=== PATIENT | female | born 1935 | race Caucasian/White ===

== ENCOUNTER 2018-08-28 15:45 | Inpatient (IN) | payer MEDICARE, BC ==
[~2018-08-28] VITALS: Ht 165.1 cm; Wt 56.3 kg
--- NOTE | 2018-08-28 16:00 | NUR ---
ED Nurse Note: patient is wheeled into the ER, coming from her house, Patient reports her PMD is Dr. Lock and he sent pt here. patient reports fall on Sunday08/25/18, and Fracture on the left hip,
[2018-08-28 16:15] VITALS: BP 158/9
[2018-08-28 16:59] LABS: BASOPHILS % (AUTO) 1.3 % (0.0-2.0); HEMATOCRIT 36.3 % (37.0-47.0); HEMOGLOBIN 12.5 G/DL (12.0-16.0); LYMPHOCYTES % (AUTO) 7.4 % (20.0-45.0); MEAN CORPUSCULAR VOLUME 96 FL (80-99); MONOCYTES % (AUTO) 13.6 % (1.0-10.0); NEUTROPHILS % (AUTO) 77.7 % (45.0-75.0); PLATELET COUNT 188 K/UL (150-450); RED BLOOD COUNT 3.79 M/UL (4.20-5.40); RED CELL DISTRIBUTION WIDTH 11.1 % (11.6-14.8); WHITE BLOOD COUNT 8.3 K/UL (4.8-10.8)
[2018-08-28 17:17] LABS: ANION GAP 6 mmol/L (5-15); BLOOD UREA NITROGEN 20 mg/dL (7-18); CARBON DIOXIDE 27 MMOL/L (21-32); CHLORIDE 103 MMOL/L (98-107); CREATININE 0.9 MG/DL (0.55-1.30); SODIUM 136 MMOL/L (136-145)
[2018-08-28 17:22] LABS: ALANINE AMINOTRANSFERASE 28 U/L (12-78); ALBUMIN 3.4 G/DL (3.4-5.0); ALBUMIN/GLOBULIN RATIO 1.1 (1.0-2.7); ALKALINE PHOSPHATASE 88 U/L (46-116); ASPARTATE AMINO TRANSFERASE 30 U/L (15-37); BILIRUBIN,TOTAL 0.6 MG/DL (0.2-1.0)
[2018-08-28] MEDS ORDERED: PROBIOTIC1 EAC2 PO (17:29)
[2018-08-28] MEDS ORDERED: ZANTAC150 MG ORAL (17:29)
[2018-08-28] MEDS ORDERED: CENTRUM SILVER1 EAC5 PO (17:29)
[2018-08-28] MEDS ORDERED: ATORVASTATIN CA10 MG ORAL (17:59)
[2018-08-28] MEDS ORDERED: LOSARTAN POTASS50 MG ORAL (17:59)
[2018-08-28] MEDS ORDERED: METOPROLOL SUCC25 MG ORAL (17:59)
--- NOTE | 2018-08-28 18:19 | NUR ---
ED Nurse Note: Clif Jones Cellphone [phone] Patient's home # ([phone])
--- NOTE | 2018-08-28 19:03 | NUR ---
ED Nurse Note: Called 2E, spoke with Madiha Celis is the RN receiving the patient, she is currently getting report for other paient.
--- NOTE | 2018-08-28 19:15 | NUR ---
ED Nurse Note: report given to Madiha MUNOZ, patient is transferred to without any complication. IV site is intact patent. Called and spoke with Clif that patient is now in and the new nurse is Madiha. Endorsed care to Madiha MUNOZ
--- NOTE | 2018-08-28 19:45 | NUR ---
NURSE NOTES: pt being transfer from ER to [address] [place] [address]. pt came from home s/p fall few days ago. pt c/o severe pain located on left hip. pt stable. will continue to monitor and make rounds hourly.
--- NOTE | 2018-08-28 19:57 | History & Physical ---
History and Physical History & Physicial seen in ER 82 Y old woman lives at home fell few days back and sustained pubic ramus fx can't ambulate poor po has pain poor historian admit tele iv pain meds placement #[phone] Max Randolph MD Aug 28, 2018 19:57
[2018-08-28 20:00] VITALS: BP 157/85
[2018-08-28] MEDS ORDERED: Hydromorphone 0.5mg/0.5ml inj IVP PRN (20:15)
[2018-08-28] MEDS: Heparin 5000 units/ml inj SUBQ SCH (21:28)
--- NOTE | 2018-08-28 23:05 | Emergency Room Report ---
History of Present Illness General Chief Complaint: Lower Extremity Injury Present Illness Allergies: Coded Allergies: LATEX (Verified Allergy, Unknown, 02/11/09) MELOXICAM (Verified Allergy, Unknown, 02/11/09) PREDNISONE (Verified Allergy, Unknown, 02/11/09) Patient History Now: No Nursing Documentation-[facility] Hx Hypertension: Yes Physical Exam Vital Signs Date Time Temp Pulse Resp B/P (MAP) Pulse Ox O2 Delivery O2 Flow Rate FiO2 08/28/18 15:56 99.0 91 20 145/73 97 Room Air Medical Decision Making Diagnostic Impression: Primary Impression: Pubic bone fracture Laboratory Tests Test 08/28/18 16:35 White Blood Count 8.3 K/UL (4.8-10.8) Red Blood Count 3.79 M/UL (4.20-5.40) L Hemoglobin 12.5 G/DL (12.0-16.0) Hematocrit 36.3 % (37.0-47.0) L Mean Corpuscular Volume 96 FL (80-99) Mean Corpuscular Hemoglobin 33.0 PG (27.0-31.0) H Mean Corpuscular Hemoglobin Concent 34.5 G/DL (32.0-36.0) Red Cell Distribution Width 11.1 % (11.6-14.8) L Platelet Count 188 K/UL (150-450) Mean Platelet Volume 6.2 FL (6.5-10.1) L Neutrophils (%) (Auto) 77.7 % (45.0-75.0) H Lymphocytes (%) (Auto) 7.4 % (20.0-45.0) L Monocytes (%) (Auto) 13.6 % (1.0-10.0) H Eosinophils (%) (Auto) 0.0 % (0.0-3.0) Basophils (%) (Auto) 1.3 % (0.0-2.0) Sodium Level 136 MMOL/L (136-145) Potassium Level 4.0 MMOL/L (3.5-5.1) Chloride Level 103 MMOL/L (98-107) Carbon Dioxide Level 27 MMOL/L (21-32) Anion Gap 6 mmol/L (5-15) Blood Urea Nitrogen 20 mg/dL (7-18) H Creatinine 0.9 MG/DL (0.55-1.30) Estimate Glomerular Filtration Rate mL/min (>60) Glucose Level 98 MG/DL (74-106) Calcium Level 9.0 MG/DL (8.5-10.1) Total Bilirubin 0.6 MG/DL (0.2-1.0) Aspartate Amino Transferase (AST) 30 U/L (15-37) Alanine Aminotransferase (ALT) 28 U/L (12-78) Alkaline Phosphatase 88 U/L (46-116) Total Protein 6.4 G/DL (6.4-8.2) Albumin 3.4 G/DL (3.4-5.0) Globulin 3.0 g/dL Albumin/Globulin Ratio 1.1 (1.0-2.7) Last Vital Signs Date Time Temp Pulse Resp B/P (MAP) Pulse Ox O2 Delivery O2 Flow Rate FiO2 08/28/18 21:57 98.6 08/28/18 20:00 Room Air 08/28/18 19:31 96 18 146/83 96 Disposition: ADMITTED INPATIENT Condition: Serious Referrals: Lorenzo Lock MD (PCP) Yissel Beckford DO Aug 28, 2018 23:05
[2018-08-29] VITALS: BP 144/68
--- NOTE | 2018-08-29 02:00 | NUR ---
NURSE NOTES: pt in bed sleeping. no s/s of acute distress noted. will continue to monitor
[2018-08-29 04:00] VITALS: BP 129/95
[2018-08-29 06:23] LABS: BASOPHILS % (AUTO) 0.7 % (0.0-2.0); EOSINOPHILS % (AUTO) 0.2 % (0.0-3.0); HEMATOCRIT 33.1 % (37.0-47.0); HEMOGLOBIN 11.3 G/DL (12.0-16.0); LYMPHOCYTES % (AUTO) 12.4 % (20.0-45.0); MEAN CORPUSCULAR VOLUME 97 FL (80-99); MONOCYTES % (AUTO) 14.7 % (1.0-10.0); NEUTROPHILS % (AUTO) 72.1 % (45.0-75.0); PLATELET COUNT 163 K/UL (150-450); RED CELL DISTRIBUTION WIDTH 10.9 % (11.6-14.8); WHITE BLOOD COUNT 6.1 K/UL (4.8-10.8)
--- NOTE | 2018-08-29 06:43 | NUR ---
CASE MANAGEMENT:REVIEW 82 YR OLD FEMALE FROM HOME CC: S/P FALL ON SUNDAY. XRAY TAKEN AT [facility] SI: PELVIC FRACTURE 99.0 91 20 145/73 97% ON RA IS: 1L NS BOLUS : TO TELEMETRY INTERQUAL CRITERIA MET
--- NOTE | 2018-08-29 07:11 | NUR ---
HAND-OFF: Report given to Tess MUNOZ.pt stable condition. all needs met during my shift
[2018-08-29 07:31] LABS: ALANINE AMINOTRANSFERASE 27 U/L (12-78); ALBUMIN 2.9 G/DL (3.4-5.0); ALBUMIN/GLOBULIN RATIO 1.1 (1.0-2.7); ALKALINE PHOSPHATASE 76 U/L (46-116); ANION GAP 8 mmol/L (5-15); ASPARTATE AMINO TRANSFERASE 27 U/L (15-37); BILIRUBIN,TOTAL 0.6 MG/DL (0.2-1.0); BLOOD UREA NITROGEN 12 mg/dL (7-18); CALCIUM 8.1 MG/DL (8.5-10.1); CARBON DIOXIDE 24 MMOL/L (21-32); CHLORIDE 105 MMOL/L (98-107); CHOLESTEROL 110 MG/DL (< 200); CREATINE KINASE 241 U/L (26-308); CREATININE 0.7 MG/DL (0.55-1.30); FERRITIN 164 NG/ML (8-388); GAMMA GLUTAMYL TRANSPEPTIDASE 18 U/L (5-85); HDL CHOLESTEROL 69 MG/DL (40-60); PHOSPHORUS 2.5 MG/DL (2.5-4.9); POTASSIUM 3.7 MMOL/L (3.5-5.1); SODIUM 137 MMOL/L (136-145); TRIGLYCERIDES 43 MG/DL (30-150)
--- NOTE | 2018-08-29 07:52 | NUR ---
NURSE NOTES: Pt in bed in low position with HOB in semi fowlers, bed alarm on, 2 rails up, call light at bedside, pt Ox3 not to time, pt calm and cooperative, denies pain, breakfast at bedside, lopez catheter placed on 08/28 at 2130 18fr, case management for home safety, possible SNF placement if pt agrees, UA collected Na random, RT AC 20 running D5NS c 20mEq K at 50/hr Q20hrs, all labs WNL, no s/s of distress or sob noted.
[2018-08-29 08:00] VITALS: BP 159/81
[2018-08-29 08:11] LABS: % IRON SATURATION 9 % (15-50); IRON 15 ug/dL (50-175); TOTAL IRON BINDING CAPACITY 165 ug/dL (250-450)
[2018-08-29] MEDS ORDERED: Metoprolol Succinate XL 25mg tab ORAL SCH (09:00)
[2018-08-29] MEDS: Losartan 50mg tab ORAL SCH ×2 (09:14→17:36)
[2018-08-29] MEDS: Docusate 100mg cap ORAL SCH ×2 (09:14→17:36)
[2018-08-29] MEDS: Heparin 5000 units/ml inj SUBQ SCH ×2 (09:19→22:12)
[2018-08-29] MEDS ORDERED: Vitamin D 50,000 units cap ORAL SCH (11:00)
[2018-08-29 12:00] VITALS: BP 149/72
[2018-08-29] MEDS ORDERED: Iron Sucrose 200 MG in NS 110 ML IV SCH (13:00)
--- NOTE | 2018-08-29 13:10 | NUR ---
REHAB MED PT NOTE CONSULT RECEIVED, ASHLEY COMPLTED, PATIENT WILL BENEFIT FROM SKILLED PT DURING STAY FOR RETURN TO OF. RECOMMEND SNF AT [place]. FAMILY IS REQUESTING [facility], LET THEM KNOW THE MESSAGE WILL BE PASSED, CM NOTIFIED. PATIENT LIMITED WITH AMBULATION DUE TO PAIN, FELT COMFORT IN SITTING EDGE OF BED AND UP IN CHAIR. WEIGHT BEARING NOT SPECIFIED, PATIENT KEPT IN PWB DUE TO NATURE OF INJURY AND PAIN IN LEFT HIP. PLAN OF CARE INITIATED. ORVILLE KHANNA PT DPT Addendum: 08/29/18 at 1312 by ORVILLE KHANNA PT Amended: Links added.
[2018-08-29 16:00] VITALS: BP 165/89
--- NOTE | 2018-08-29 16:21 | General Progress Note ---
Assessment/Plan Problem List: (1) Pubic bone fracture ICD Codes: S32.509A - Unspecified fracture of unspecified pubis, initial encounter for closed fracture SNOMED: 68686226 (2) HTN (hypertension) ICD Codes: I10 - Essential (primary) hypertension SNOMED: 48282678 (3) FTT (failure to thrive) in adult ICD Codes: R62.7 - Adult failure to thrive SNOMED: 660924067 Status Narrative 82 Y old woman lives at home fell few days back and sustained pubic ramus fx can't ambulate poor po has pain poor historian Assessment/Plan admit tele iv pain meds placement Subjective ROS Limited/Unobtainable: No Constitutional: Reports: malaise, weakness Allergies: Coded Allergies: LATEX (Verified Allergy, Unknown, 02/11/09) MELOXICAM (Verified Allergy, Unknown, 02/11/09) PREDNISONE (Verified Allergy, Unknown, 02/11/09) Objective Last 24 Hour Vital Signs Date Time Temp Pulse Resp B/P (MAP) Pulse Ox O2 Delivery O2 Flow Rate FiO2 08/29/18 12:00 96.4 96 16 149/72 (97) 96 08/29/18 09:14 94 159/81 08/29/18 09:14 159/81 08/29/18 08:31 Room Air 08/29/18 08:00 98.8 94 16 159/81 (107) 95 08/29/18 08:00 87 08/29/18 04:00 97.8 85 17 129/95 (106) 96 08/29/18 04:00 82 08/29/18 00:00 84 08/29/18 00:00 99.1 89 20 144/68 (93) 99 08/28/18 21:57 98.6 08/28/18 21:00 86 08/28/18 20:00 Room Air 08/28/18 20:00 Room Air 08/28/18 20:00 101.6 94 20 157/85 (109) 99 08/28/18 19:31 98.7 96 18 146/83 96 Room Air Intake and Output 08/28/18 08/29/18 19:00 07:00 Intake Total 787 ml Balance 787 ml Intake Oral 360 ml IV Total 427 ml # Voids 1 Laboratory Tests 08/28/18 16:35: White Blood Count 8.3, Red Blood Count 3.79L, Hemoglobin 12.5, Hematocrit 36.3L , Mean Corpuscular Volume 96, Mean Corpuscular Hemoglobin 33.0H, Mean Corpuscular Hemoglobin Concent 34.5, Red Cell Distribution Width 11.1L, Platelet Count 188, Mean Platelet Volume 6.2L, Neutrophils (%) (Auto) 77.7H, Lymphocytes (%) (Auto) 7.4L, Monocytes (%) (Auto) 13.6H, Eosinophils (%) (Auto) 0.0, Basophils (%) (Auto) 1.3, Sodium Level 136, Potassium Level 4.0, Chloride Level 103, Carbon Dioxide Level 27, Anion Gap 6, Blood Urea Nitrogen 20H, Creatinine 0.9, Estimat Glomerular Filtration Rate , Glucose Level 98, Calcium Level 9.0, Total Bilirubin 0.6, Aspartate Amino Transf (AST/SGOT) 30, Alanine Aminotransferase (ALT/SGPT) 28, Alkaline Phosphatase 88, Total Protein 6.4, Albumin 3.4, Globulin 3.0, Albumin/Globulin Ratio 1.1 08/29/18 03:40: Urine Random Sodium 79 08/29/18 04:55: White Blood Count 6.1, Red Blood Count 3.40L, Hemoglobin 11.3L, Hematocrit 33.1L , Mean Corpuscular Volume 97, Mean Corpuscular Hemoglobin 33.1H, Mean Corpuscular Hemoglobin Concent 34.0, Red Cell Distribution Width 10.9L, Platelet Count 163, Mean Platelet Volume 6.4L, Neutrophils (%) (Auto) 72.1, Lymphocytes (%) (Auto) 12.4L, Monocytes (%) (Auto) 14.7H, Eosinophils (%) (Auto ) 0.2, Basophils (%) (Auto) 0.7, Sodium Level 137, Potassium Level 3.7, Chloride Level 105, Carbon Dioxide Level 24, Anion Gap 8, Blood Urea Nitrogen 12 , Creatinine 0.7, Estimat Glomerular Filtration Rate , Glucose Level 95, Calcium Level 8.1L, Total Bilirubin 0.6, Aspartate Amino Transf (AST/SGOT) 27, Alanine Aminotransferase (ALT/SGPT) 27, Alkaline Phosphatase 76, Total Protein 5.6L, Albumin 2.9L, Globulin 2.7, Albumin/Globulin Ratio 1.1, Hemoglobin A1c 5.1 , Uric Acid 3.2, Phosphorus Level 2.5, Magnesium Level 1.9, Iron Level 15L, Total Iron Binding Capacity 165L, Percent Iron Saturation 9L, Unsaturated Iron Binding 150, Ferritin 164, Gamma Glutamyl Transpeptidase 18, Total Creatine Kinase 241, Troponin I 0.000, C-Reactive Protein, Quantitative 8.8H, Pro-B-Type Natriuretic Peptide 490H, Triglycerides Level 43, Cholesterol Level 110, LDL Cholesterol 35, HDL Cholesterol 69H, Cholesterol/HDL Ratio 1.6L, Vitamin B12 Level 636, Folate 42.8, Thyroid Stimulating Hormone (TSH) 1.434 Height (Feet): 5 Height (Inches): 5.00 Weight (Pounds): 124 General Appearance: no apparent distress, lethargic Cardiovascular: tachycardia Respiratory/Chest: decreased breath sounds Abdomen: soft Max Randolph MD Aug 29, 2018 16:21
[2018-08-29 17:48] LABS: APPEARANCE,URINE CLEAR; BILIRUBIN, URINE NEGATIVE (NEGATIVE); GLUCOSE, URINE (UA) 1+ (NEGATIVE); KETONES,URINE 2+ (NEGATIVE); LEUKOCYTE ESTERASE ,URINE 1+ (NEGATIVE); NITRITE,URINE NEGATIVE (NEGATIVE); PH,URINE 6.5 (4.5-8.0); PROTEIN,URINE 1+ (NEGATIVE); UROBILINOGEN,URINE 1 MG/DL (0.0-1.0)
[2018-08-29 17:50] LABS: COLOR,URINE YELLOW
--- NOTE | 2018-08-29 19:05 | NUR ---
HAND-OFF: Report given to Karen Johnson Rn.
--- NOTE | 2018-08-29 19:20 | NUR ---
NURSE NOTES: Received report from Yue Pulido RN. Pt is resting in the bed w/o distress in RA. HOB elevated > 30 degree. Bed alarm on, bed in lowest position, side rails up x3, and breaks are engaged. Call light and side table are w/in reach. BSC is ready to use and w/in reach. Instructed to call for virtual office assistant to ambulate by using call light, verbalized understanding. IV site is asymptomatic, IV is running as ordered. Will follow plans of care.
[2018-08-29 20:00] VITALS: BP 163/88
--- NOTE | 2018-08-29 21:15 | History and Physical Report ---
DATE OF ADMISSION: 08/28/2018 HISTORY OF PRESENT ILLNESS: The patient is an 82-year-old visited her PMD in the office across [facility] complaining of inability to ambulate and poor p.o. intake accompanied by her nephew. As it turns a few days ago, the patient fell down and was taken to [facility] emergency room hospital and the workup showed that the patient have acute nondisplaced fracture of the inferior ramus of the left pubic bone and however the patient was sent home. The patient has been in pain, has been taking poor p.o. intake, and been living alone. So, the patient was sent to the emergency room here at [facility]. After initial evaluation, is being admitted for further management. PAST MEDICAL HISTORY: Significant for high cholesterol and hypertension and some degree of decreased cognition. The patient was seen in the emergency room. Poor historian. Looks, at her age, somewhat frail. PHYSICAL EXAMINATION: VITAL SIGNS: Blood pressure 145/73, respiratory rate 20, temperature 99, and pulse rate of 91. HEENT: Face is pale. Head is normocephalic. Sclerae not icteric. No thyromegaly. LUNGS: Poor inspiratory effort. No wheeze. HEART: Regular. Slightly tachycardic. ABDOMEN: Soft. Bowel sounds present. EXTREMITIES: Lower extremities, no edema. The patient is tender when touched in the pubic area. LABORATORY DATA: Initially, hemoglobin 12.5, white blood cells 8.3, BUN 20, and creatinine 0.9. Electrolytes normal. No UA available. IMPRESSION: The patient has acute nondisplaced fracture of the inferior ramus of the left pubic bone, also history of hypertension, inability to ambulate, failure to thrive, and some degree of decreased cognition. PLAN: The patient will be admitted for 24 hours on a monitored bed. We will put on cardiac diet. Slow hydration. We will put her on blood pressure medication, which includes Cozaar and metoprolol. We will start Protonix for gastric support and we ordered PT and arranged for case management evaluation for further placement. According to how the patient's condition evolves, we will do the proper changes in our future management. Max Randolph M.D. DR: RUTHIE JOB#: [id number] CC:
[2018-08-29] MEDS: Metoprolol Tartrate 50mg tab ORAL SCH (22:21)
[2018-08-30] VITALS: BP 150/76
[2018-08-30 04:00] VITALS: BP 150/76
[2018-08-30 07:15] LABS: BILIRUBIN, URINE NEGATIVE (NEGATIVE); GLUCOSE, URINE (UA) NEGATIVE (NEGATIVE); KETONES,URINE 1+ (NEGATIVE); LEUKOCYTE ESTERASE ,URINE 2+ (NEGATIVE); NITRITE,URINE NEGATIVE (NEGATIVE); PH,URINE 6.5 (4.5-8.0); PROTEIN,URINE 2+ (NEGATIVE); UROBILINOGEN,URINE 4 MG/DL (0.0-1.0)
--- NOTE | 2018-08-30 07:20 | NUR ---
HAND-OFF: Report given to Yue Pulido RN. Pt was helped to use BSC last night but no BM. Pt was slept well w/o distress. Urine sample collected and turned to lab at 0600.
[2018-08-30 07:24] LABS: APPEARANCE,URINE CLEAR; COLOR,URINE YELLOW
--- NOTE | 2018-08-30 07:28 | NUR ---
NURSE NOTES: Pt in bed with HOB in semi fowlers, low position, call light at bedside, pt with eyes closed and breathing at 16BPM appears to be sleeping, normal orientation is Ox2 with periods of confusion, New IV started prior shift of RT Forearm 20 running D5NS 20 mEq at 50/hr, bed alarm on and commode at bedside, 2 rails up for safety, pt needs assistance to commode as she has a pelvic fracture, pt make needs known, no s/s of distress or sob noted. unable to determine pain level.
[2018-08-30 08:00] VITALS: BP 159/77
[2018-08-30] MEDS: Losartan 50mg tab ORAL SCH ×2 (09:41→18:13)
[2018-08-30] MEDS: Docusate 100mg cap ORAL SCH ×2 (09:41→18:13)
[2018-08-30] MEDS: Metoprolol Tartrate 50mg tab ORAL SCH ×2 (09:42→20:16)
[2018-08-30] MEDS: Heparin 5000 units/ml inj SUBQ SCH ×2 (09:43→21:00)
--- NOTE | 2018-08-30 10:12 | General Progress Note ---
Assessment/Plan Problem List: (1) Pubic bone fracture ICD Codes: S32.509A - Unspecified fracture of unspecified pubis, initial encounter for closed fracture SNOMED: 43596394 (2) HTN (hypertension) ICD Codes: I10 - Essential (primary) hypertension SNOMED: 91837029 (3) FTT (failure to thrive) in adult ICD Codes: R62.7 - Adult failure to thrive SNOMED: 717094831 (4) UTI (urinary tract infection) ICD Codes: N39.0 - Urinary tract infection, site not specified SNOMED: 52093589 Status: stable Assessment/Plan transfer med surg start Rocephin DC lopez Dc IV fluids SNF placement pain meds DC in am Subjective ROS Limited/Unobtainable: No Constitutional: Reports: malaise Allergies: Coded Allergies: LATEX (Verified Allergy, Unknown, 02/11/09) MELOXICAM (Verified Allergy, Unknown, 02/11/09) PREDNISONE (Verified Allergy, Unknown, 02/11/09) Objective Last 24 Hour Vital Signs Date Time Temp Pulse Resp B/P (MAP) Pulse Ox O2 Delivery O2 Flow Rate FiO2 08/30/18 09:42 82 159/77 08/30/18 09:41 159/77 08/30/18 08:26 Room Air 08/30/18 08:00 98.2 82 16 159/77 (104) 96 08/30/18 04:05 71 08/30/18 04:00 98.6 78 20 150/76 (100) 95 08/29/18 23:41 77 08/29/18 22:21 106 163/88 08/29/18 21:00 Room Air 08/29/18 20:00 98.4 106 18 163/88 (113) 95 08/29/18 19:00 109 08/29/18 17:36 165/89 08/29/18 16:00 98.8 97 16 165/89 (114) 94 08/29/18 15:06 93 08/29/18 12:00 96.4 96 16 149/72 (97) 96 08/29/18 11:53 93 Intake and Output 08/29/18 08/30/18 19:00 07:00 Intake Total 330 ml 550 ml Output Total 600 ml 600 ml Balance -270 ml -50 ml Intake Oral 280 ml 250 ml IV Total 50 ml 300 ml Output Urine Total 600 ml 600 ml # Voids 1 Laboratory Tests 08/29/18 17:15: Urine Color Yellow, Urine Appearance Clear, Urine pH 6.5, Urine Specific [place] 1.010, Urine Protein 1+H, Urine Glucose (UA) 1+H, Urine Ketones 2+H, Urine Blood 4+H, Urine Nitrite Negative, Urine Bilirubin Negative, Urine Urobilinogen 1H, Urine Leukocyte Esterase 1+H, Urine RBC 5-10H, Urine WBC 10-15H , Urine Squamous Epithelial Cells Occasional, Urine Bacteria Few 08/30/18 05:30: Urine Color Yellow, Urine Appearance Clear, Urine pH 6.5, Urine Specific [place] 1.015, Urine Protein 2+H, Urine Glucose (UA) Negative, Urine Ketones 1+H , Urine Blood 5+H, Urine Nitrite Negative, Urine Bilirubin Negative, Urine Urobilinogen 4H, Urine Leukocyte Esterase 2+H, Urine RBC 20-30H, Urine WBC 10- 15H, Urine Squamous Epithelial Cells Few, Urine Bacteria Few Height (Feet): 5 Height (Inches): 5.00 Weight (Pounds): 124 General Appearance: no apparent distress Cardiovascular: normal rate Respiratory/Chest: lungs clear Abdomen: soft Max Randolph MD Aug 30, 2018 10:12
[2018-08-30] MEDS ORDERED: cefTRIAXone 1 GM in D5W 55 ML IVPB ONE (10:15)
[2018-08-30] MEDS ORDERED: cefTRIAXone 1 GM in D5W 55 ML IVPB SCH (11:00)
--- NOTE | 2018-08-30 11:16 | NUR ---
Social Work This SW received a consult to assist with a home safety evaluation. This Sw met with patient who appears to show some confusion, stating her "friend" Clif lives in her back house and has been assisting her. This Sw spoke with Clif who explains he is her nephew and planning for patient to transfer to SNF upon discharge (nephew explained he spoke with Gaming Table Operator, Tete coley regarding plans). Nephew also planning for senior living placement at SNF or assisted living (patient cannot return home, unable to care for self (nephew cannot stay with patient at all times to assist).
--- NOTE | 2018-08-30 11:27 | NUR ---
CASE MANAGEMENT:REVIEW 08/30/18 SI: PUBIC BONE FRACTURE. FTT. UTI 98.2 82 16 159/77 96% ON RA IS: IV ROCEPHIN Q24 LOPRESSOR PO Q12 COZAAR PO BID HEPARIN SQ Q12 PROTONIX PO QD : TELEMETRY STATUS PLAN: PLAN HAS BEEN REFERRED TO [facility]
--- NOTE | 2018-08-30 11:31 | NUR ---
DISCHARGE PLANNING PATIENT HAS BEEN REFERRED TO AND ACCEPTED AT [facility] FOR TOMORROW SENIOR STATISTICAL PROGRAMMER CONFIRMED ACCEPTANCE WITH [facility] AT [facility] T: [phone] F: [phone]
[2018-08-30 12:00] VITALS: BP 165/78
[2018-08-30 16:00] VITALS: BP 151/82
--- NOTE | 2018-08-30 16:35 | NUR ---
DISCHARGE IS PLANNED PATIENT WILL DISCHARGE 08/31/18 TO [facility] ROOM 217-1 SKILLED T: [phone] FOR NURSE TO NURSE REPORT ~ ASK FOR RN SENIOR NET PROGRAMMER [facility] WILL NEED TO BE ARRANGED BY NURSES BY DIALING [phone] AND PROVIDING NECESSARY INFORMATION Addendum: 08/30/18 at 1639 by MARINA MILES LVN LVN TRANSFER REPORT IS COMPLETED AND HAS BEEN PLACED IN CHART
--- NOTE | 2018-08-30 16:54 | NUR ---
TRANSFER NOTES: Pt being transferred now. Report to be given to Jose.
[2018-08-30] MEDS ORDERED: Hydromorphone 0.5mg/0.5ml inj IVP PRN (17:00)
--- NOTE | 2018-08-30 17:25 | NUR ---
NURSE NOTES: Abel MUNOZ brought patient by bed in stable condition. Alert and oriented x3. Skin intact and dry. No complain of pain or distress at this time. IV dressing intact and dry. Belonging checked with Abel MUNOZ. Side rails up x2 and Bed lowest position. Call light within reach. Will continue to monitor.
--- NOTE | 2018-08-30 19:30 | NUR ---
HAND-OFF: Report given to Edelmira MUNOZ. Patient in stable condition.
[2018-08-30 20:00] VITALS: BP 161/81
--- NOTE | 2018-08-30 20:02 | NUR ---
NURSE NOTES: Patient in bed awake and alert verbally responsive, no s/s distress noted. Bedside commode next to bedside. Bed in lowest position for safety, bed alarm on, instructed to use call light for assistance. Call light within reach.
[2018-08-31] VITALS: BP 151/77
[2018-08-31 04:00] VITALS: BP 152/75
--- NOTE | 2018-08-31 07:20 | NUR ---
HAND-OFF: Report given to Asif MUNOZ.
--- NOTE | 2018-08-31 07:30 | NUR ---
NURSE NOTES: Received pt from LAEXANDER Hickey, pt was resting comfortably, no acute distress, pain. call light w/in reach
[2018-08-31 08:00] VITALS: BP 130/76
[2018-08-31] MEDS: Docusate 100mg cap ORAL SCH ×2 (08:37→17:39)
[2018-08-31] MEDS: Losartan 50mg tab ORAL SCH ×2 (08:38→17:40)
[2018-08-31] MEDS: Metoprolol Tartrate 50mg tab ORAL SCH ×2 (08:38→20:42)
[2018-08-31] MEDS: Heparin 5000 units/ml inj SUBQ SCH ×2 (08:40→20:44)
[2018-08-31] MEDS ORDERED: cefTRIAXone 1 GM in D5W 55 ML IVPB SCH (11:00)
[2018-08-31 12:00] VITALS: BP 143/69
--- NOTE | 2018-08-31 12:00 | NUR ---
NURSE NOTES: report given to Pat at [facility].
--- NOTE | 2018-08-31 12:33 | General Progress Note ---
Assessment/Plan Problem List: (1) Pubic bone fracture ICD Codes: S32.509A - Unspecified fracture of unspecified pubis, initial encounter for closed fracture SNOMED: 53727394 (2) HTN (hypertension) ICD Codes: I10 - Essential (primary) hypertension SNOMED: 19971213 (3) FTT (failure to thrive) in adult ICD Codes: R62.7 - Adult failure to thrive SNOMED: 967523869 (4) UTI (urinary tract infection) ICD Codes: N39.0 - Urinary tract infection, site not specified SNOMED: 91704033 Assessment/Plan DC to ecf start Rocephin DC lopez Dc IV fluids SNF placement on Macrobid pain meds Subjective ROS Limited/Unobtainable: No Allergies: Coded Allergies: LATEX (Verified Allergy, Unknown, 02/11/09) MELOXICAM (Verified Allergy, Unknown, 02/11/09) PREDNISONE (Verified Allergy, Unknown, 02/11/09) Objective Last 24 Hour Vital Signs Date Time Temp Pulse Resp B/P (MAP) Pulse Ox O2 Delivery O2 Flow Rate FiO2 08/31/18 08:38 83 130/76 08/31/18 08:38 130/76 08/31/18 08:00 98.0 83 18 130/76 (94) 95 08/31/18 07:48 Room Air 08/31/18 05:10 99.0 08/31/18 04:00 100.4 88 20 152/75 (100) 96 08/31/18 00:00 98.1 80 18 151/77 (101) 95 08/30/18 21:00 Room Air 08/30/18 20:16 89 161/81 08/30/18 20:00 98.5 89 20 161/81 (107) 95 08/30/18 18:13 155/83 08/30/18 16:00 99.1 82 16 151/82 (105) 93 08/30/18 15:30 97.8 Intake and Output 08/30/18 08/31/18 19:00 07:00 Intake Total 300 ml 240 ml Balance 300 ml 240 ml Intake Oral 300 ml 240 ml # Voids 4 Current Medications Medications (Trade) Dose Ordered Sig/Cassy Route PRN Reason Start Time Stop Time Status Last Admin Dose Admin Acetaminophen (Tylenol) 650 mg Q6H ORAL 08/30/18 21:00 09/27/18 20:59 08/31/18 08:39 Atorvastatin Calcium (Lipitor) 10 mg BEDTIME ORAL 08/30/18 21:00 09/27/18 20:59 08/30/18 20:16 Ceftriaxone Sodium 1 gm/ Dextrose 55 ml @ 110 mls/hr Q24H IVPB 08/31/18 11:00 09/06/18 10:59 08/31/18 11:36 Docusate Sodium (Colace) 100 mg TWICE A DAY ORAL 08/30/18 18:00 09/28/18 08:59 08/31/18 08:37 Ergocalciferol (Drisdol) 50,000 intlu QWEEK ORAL 09/05/18 11:00 09/28/18 10:59 Heparin Sodium (Porcine) (Heparin 5000 units/ml) 5,000 units EVERY 12 HOURS SUBQ 08/30/18 21:00 09/27/18 20:59 Hydromorphone HCl (Dilaudid) 0.5 mg Q4H PRN IVP For Pain 7-10 08/30/18 17:00 09/04/18 16:59 Losartan Potassium (Cozaar) 50 mg BID ORAL 08/30/18 18:00 09/28/18 08:59 08/31/18 08:38 Metoprolol Tartrate (Lopressor) 50 mg Q12HR ORAL 08/30/18 21:00 09/28/18 20:59 08/31/18 08:38 Nitrofurantoin (Macrobid) 100 mg EVERY 12 HOURS ORAL 08/31/18 21:00 09/30/18 20:59 Ondansetron HCl (Zofran) 4 mg Q6H PRN IV Nausea & Vomiting 08/30/18 17:00 09/27/18 16:59 Pantoprazole (Protonix) 40 mg DAILY ORAL 08/31/18 09:00 09/27/18 20:14 08/31/18 08:38 Height (Feet): 5 Height (Inches): 5.00 Weight (Pounds): 124 General Appearance: no apparent distress Max Randolph MD Aug 31, 2018 12:33
[2018-08-31] MEDS ORDERED: PROTONIX40 MG ORAL (12:36)
[2018-08-31] MEDS ORDERED: ACETAMINOPHEN325 M1 ORAL (12:36)
[2018-08-31] MEDS ORDERED: DOK100 M1 ORAL (12:36)
[2018-08-31] MEDS ORDERED: METOPROLOL TART50 MG ORAL (12:36)
[2018-08-31] MEDS ORDERED: COZAAR50 MG ORAL (12:36)
[2018-08-31] MEDS ORDERED: LIPITOR10 MG ORAL (12:36)
[2018-08-31] MEDS ORDERED: VITAMIN D250000 UNI1 ORAL (12:36)
[2018-08-31] MEDS ORDERED: MACROBID100 MG ORAL (12:36)
--- NOTE | 2018-08-31 12:38 | Discharge Instructions ---
Discharge Instructions Discharge Instructions Follow up with: follow up with Dr Lorenzo Spencer [facility] Diet: cardiac 2 GM Na, low fat Activity: other - Pt OT Special Instructions Pt OT St eval Fall precautions Skin care For Congestive Heart Failure Reminder Report to your physician any weight gain of 5 pounds or more in one week. Max Randolph MD Aug 31, 2018 12:38
--- NOTE | 2018-08-31 13:31 | NUR ---
DISCHARGE IS PLANNED PATIENT WILL DISCHARGE 08/31/18 TO [facility] ROOM 217-1 SKILLED T: [phone] FOR NURSE TO NURSE REPORT ~ ASK FOR RN CUSTOMER EXPERIENCE ASSOCIATE TRANSPORTATION [facility] [id number] ETA 15:30
--- NOTE | 2018-08-31 15:30 | NUR ---
NURSE NOTES Pt is about to discharge but her b/p was 173/[address] Randolph received order for B/P and wait for another hour to lower B/P
[2018-08-31 16:00] VITALS: BP 145/80
[2018-08-31] MEDS ORDERED: HydrALAZINE 10mg Tab ORAL SCH (16:00)
--- NOTE | 2018-08-31 18:30 | NUR ---
NURSE NOTES: ambulance was here but she has still high b/p 163/84. called dr again received order.
--- NOTE | 2018-08-31 19:23 | NUR ---
NURSE NOTES: NURSE NOTES: Addendum: 08/31/18 at 1925 by Talha Izquierdo RN Received patient awake in bed, able to verbalize needs, ambulance unable to take her to [facility] due to high BP. Clonidine ordered per MD. Will try to discharge today once BP is below 140. Helped pt to bedside commode and back to bed.
--- NOTE | 2018-08-31 19:48 | NUR ---
HAND-OFF: Report given to ALEXANDER Degroot, give b/p med catapress 0.1 mg will check again and discharge.
[2018-08-31 20:42] VITALS: BP 157/92
[2018-08-31] MEDS ORDERED: NS 500ML ONE (22:14)
--- NOTE | 2018-09-03 14:01 | Discharge Summary ---
Discharge Summary Discharge Summary _ DATE OF ADMISSION: 08/28/2018 DATE OF DISCHARGE: 219 08/31/2018 DISCHARGED BY: Dr. Randolph REASON FOR ADMISSION: 82 years old female with past medical history of hypertension, high cholesterol , some degree of decreased cognition, was sent to emergency room for evaluation from her primary care provider office across [facility]. Patient was presented to primary care doctor office and was complaining of inability to ambulate and poor oral intake. Patient was accompanied by her nephew. As it turns out, few days ago patient fell down and was taken to [facility] emergency room for evaluation. During the workup she was found to have acute nondisplaced fracture of the inferior ramus of the left pubic bone however patient was sent home. Patient presented in pain with complaints of poor oral intake. Patient lives alone. Upon evaluation BUN 20 creatinine 0.9, stable electrolytes. No leukocytosis stable hemoglobin and hematocrit. Patient was admitted for further management. HOSPITAL COURSE: Patient initially admitted to telemetry floor. Patient started on cardiac diet and slow IV hydration. Blood pressure was managed with angiotensin receptor malorie and beta-malorie. Protonix was added for gastric support. Fall precautions were maintained. Physical therapy evaluation and treatment were provided. Pain management was addressed , and pain was controlled. Patient was working woth physical therapist , and ambulated with a front wheel walker with partial weight bearing on the left lower extremity. According to physical therapist , patient required assistance and verbal cues. Incentive spirometry was encouraged , while patient was in the bed. Urinalysis revealed evidence of possible UTI. Urine culture revealed growth of enterococcus faecalis. Antibiotic regimen optimized based on sensitivity. Hemoglobin and hematocrit slightly down with IV hydration : hemoglobin 11.3 , hematocrit 33.1. Anemia workup revealed evidence of anemia of chronic disease and low iron stores. Patient received 1 dose of IV Venofer . Stable B12 and folate levels. TSH within normal range. Symptomatic care provided. IV fluids and Escobar catheter discontinued. DVT prophylaxis provided. Bowel regimen instituted. Placement was arranged at [facility] Patient was stable for transfer. FINAL DIAGNOSES: Acute nondisplaced fracture of the inferior ramus of the left pubic bone Hypertension Urinary tract infection with Enterococcus faecalis Failure to thrive DISCHARGE MEDICATIONS: See Medication Reconciliation list. DISCHARGE INSTRUCTIONS: Patient was discharged to the nursing home facility. Follow up with medical doctor at the facility. I have been assigned to dictate discharge summary for this account. I was not involved in the patient's management. Shelley Leung NP Sep 03, 2018 14:01
[2018-09-05] MEDS ORDERED: Vitamin D 50,000 units cap ORAL SCH (11:00)
== END 2018-08-31 22:15 | DRG 536 ==
LOC: EMR 16:15 → 2E 17:33 → EDBEDREQSVC 18:30 → EDBEDREQ 18:30 → 4E 20:22 → 2E 20:30 → 3E 08-30 16:59
DX: S32.592A Other specified fracture of left pubis, initial encounter for closed fracture (principal); N39.0 Urinary tract infection, site not specified; W19.XXXA Unspecified fall, initial encounter; E78.00 Pure hypercholesterolemia, unspecified; I10 Essential (primary) hypertension; B95.2 Enterococcus as the cause of diseases classified elsewhere; R62.7 Adult failure to thrive; Z88.8 Allergy status to other drugs, medicaments and biological substances; Z91.040 Latex allergy status; R26.2 Difficulty in walking, not elsewhere classified
CPT/HCPCS: 36415; 80053; 80061; 81001; 82550; 82607; 82728; 82746; 82977; 83036; 83540; 83550; 83735; 83880; 84100; 84300; 84443; 84484; 84550; 85025; 86140; 87086; 87181; 93005; 96360; 99285

== ENCOUNTER 2018-09-05 17:14 | Inpatient (IN) | payer MEDICARE, BC ==
[~2018-09-05] VITALS: Ht 162.6 cm; Wt 46.8 kg
[~2018-09-05 17:14] MED LIST: ACETAMINOPHEN325 M1 ORAL; ATORVASTATIN CA10 MG ORAL; CENTRUM SILVER1 EAC5 PO; COZAAR50 MG ORAL; DOK100 M1 ORAL; LIPITOR10 MG ORAL; LOSARTAN POTASS50 MG ORAL; MACROBID100 MG ORAL; METOPROLOL SUCC25 MG ORAL; METOPROLOL TART50 MG ORAL; PROBIOTIC1 EAC2 PO; PROTONIX40 MG ORAL; VITAMIN D250000 UNI1 ORAL; ZANTAC150 MG ORAL
--- NOTE | 2018-09-05 17:20 | NUR ---
ED Nurse Note: PAtient was brought in by [facility] from [facility] coming in for fever, congestion. patient is alert and awake x2, ambulatory with assistance.
[2018-09-05] MEDS ORDERED: cefTRIAXone 1 GM in NS 55 ML IVPB ONE (18:00)
[2018-09-05 18:22] LABS: HEMATOCRIT 36.1 % (37.0-47.0); HEMOGLOBIN 12.5 G/DL (12.0-16.0); MEAN CORPUSCULAR VOLUME 93 FL (80-99); PLATELET COUNT 486 K/UL (150-450); RED BLOOD COUNT 3.86 M/UL (4.20-5.40); RED CELL DISTRIBUTION WIDTH 10.4 % (11.6-14.8); WHITE BLOOD COUNT 11.2 K/UL (4.8-10.8)
[2018-09-05 18:24] LABS: ANION GAP 8 mmol/L (5-15); BLOOD UREA NITROGEN 18 mg/dL (7-18); CALCIUM 8.6 MG/DL (8.5-10.1); CARBON DIOXIDE 27 MMOL/L (21-32); CHLORIDE 96 MMOL/L (98-107); CREATININE 0.9 MG/DL (0.55-1.30); POTASSIUM 3.4 MMOL/L (3.5-5.1); SODIUM 131 MMOL/L (136-145)
[2018-09-05] MEDS ORDERED: Azithromycin 500 MG in D5W 275 ML IVPB ONE (18:30)
[2018-09-05 18:40] LABS: ALANINE AMINOTRANSFERASE 118 U/L (12-78); ALBUMIN 2.4 G/DL (3.4-5.0); ALBUMIN/GLOBULIN RATIO 0.6 (1.0-2.7); ALKALINE PHOSPHATASE 125 U/L (46-116); ASPARTATE AMINO TRANSFERASE 133 U/L (15-37); BILIRUBIN,TOTAL 0.5 MG/DL (0.2-1.0); CKMB 1.1 NG/ML (0.0-3.6); CREATINE KINASE 56 U/L (26-308); PHOSPHORUS 2.9 MG/DL (2.5-4.9)
[2018-09-05 18:51] LABS: APPEARANCE,URINE CLEAR; BILIRUBIN, URINE NEGATIVE (NEGATIVE); GLUCOSE, URINE (UA) NEGATIVE (NEGATIVE); KETONES,URINE NEGATIVE (NEGATIVE); LEUKOCYTE ESTERASE ,URINE 1+ (NEGATIVE); NITRITE,URINE NEGATIVE (NEGATIVE); PH,URINE 7 (4.5-8.0); PROTEIN,URINE 1+ (NEGATIVE); UROBILINOGEN,URINE 1 MG/DL (0.0-1.0)
[2018-09-05 18:52] LABS: COLOR,URINE YELLOW
[2018-09-05 19:13] VITALS: BP 159/81
--- NOTE | 2018-09-05 19:18 | NUR ---
HAND-OFF: Report given to Edilson RN . patient is in stable condition
--- NOTE | 2018-09-05 19:25 | NUR ---
HAND-OFF: Report given to ALEXANDER Cam.
[2018-09-05] MEDS ORDERED: ACETAMINOPHEN325 M1 ORAL (20:42)
[2018-09-05] MEDS ORDERED: VITAMIN D250000 UNI1 ORAL (20:46)
--- NOTE | 2018-09-05 20:47 | NUR ---
ED Nurse Note: Patient has redness on buttocks and rashes on bilateral legs.
[2018-09-05] MEDS ORDERED: NITROFURANTOIN100 M2 ORAL (20:50)
[2018-09-05] MEDS ORDERED: Metoprolol 5mg/5ml Inj IVP SCH (22:15)
[2018-09-05 22:30] VITALS: BP 164/80
--- NOTE | 2018-09-05 22:30 | NUR ---
ED Nurse Note: Patient transferred to telemetry unit, on [facility], connected to personnel monitor by AUBREE montano and technical staff engineer. Patient report given to Pamela MUNOZ at bedside. Patient sent with all personal belongings. Patient AOx4, VSS, non ambulatory at this time, no s/s of acute distress noted at this time. Patient tolerated transfer well.
--- NOTE | 2018-09-05 23:00 | NUR ---
NURSE NOTES: Received pt from ALEXANDER Cowan. Pt awake, alert, and incomprehensible. Lung sounds diminished. bowel sounds present. Redness noted on the sacral area, otherwise skin intact. Pt able to follow commands but speech is garbled. Since admission, pt has been coughing and c/o sore throat. Bed in lowest position. Call light within reach. Will continue to monitor.
--- NOTE | 2018-09-05 23:25 | NUR ---
NURSE NOTES: Called and left a message with Dr. Roberts regarding admission orders. Awaiting call back.
--- NOTE | 2018-09-05 23:40 | Emergency Room Report ---
History of Present Illness General Chief Complaint: Fever Source: Medical Record Present Illness HPI Patient is an 82-year-old female sent in by senior living after increased fever. Patient was noted to have increased temperature up to 102 degrees. Patient was sent in by senior living by Dr. Reed. Patient was noted to have prior history of some dementia. She had been given Tylenol prior to arrival. She had not been having any fever. Patient had recently been treated with a urinary tract infection Allergies: Coded Allergies: LATEX (Verified Allergy, Unknown, 02/11/09) MELOXICAM (Verified Allergy, Unknown, 02/11/09) PREDNISONE (Verified Allergy, Unknown, 02/11/09) Patient History Past Medical History: see triage record Reviewed Nursing Documentation: PMH: Agreed; PSxH: Agreed Nursing Documentation-PMH Past Medical History: No History, Except For Hx Cardiac Problems: Yes Hx Hypertension: Yes Hx Pacemaker: No Hx Cancer: No Hx Gastrointestinal Problems: No Hx Neurological Problems: No Review of Systems All Other Systems: limited - by poor historian Physical Exam Vital Signs Date Time Temp Pulse Resp B/P (MAP) Pulse Ox O2 Delivery O2 Flow Rate FiO2 09/05/18 17:14 98.2 87 20 130/70 91 Nasal Cannula 2.0 Sp02 EP Interpretation: reviewed, normal General Appearance: normal inspection, well appearing, no apparent distress, alert, Chronically Ill Head: atraumatic ENT: normal ENT inspection, hearing grossly normal, normal voice Neck: normal inspection, full range of motion, supple, no bony tend Respiratory: normal inspection, no respiratory distress, no retraction, no wheezing Cardiovascular #1: regular rate, rhythm, no edema Gastrointestinal: normal inspection, normal bowel sounds, non tender, soft, no guarding, no hernia Genitourinary: no CVA tenderness Musculoskeletal: normal inspection, back normal, normal range of motion Neurologic: normal inspection, alert, responsive, speech normal Psychiatric: normal inspection, judgement/insight normal, mood/affect normal Skin: normal inspection, normal color, no rash Medical Decision Making Diagnostic Impression: Primary Impression: Pneumonia Additional Impression: Urinary tract infection ER Course Patient presented for fever. Differential diagnosis include was not limited to pneumonia, urinary tract infection, influenza among others. Because of complexity of patient's case laboratory testing and imaging studies were ordered. Patient was noted to be chronically dementia somewhat confused. Laboratory testing was notable for abnormal liver function tests as well as minimally elevated white blood count. Patient was given medications for hypertension. She was noted to have some residual urinary infection was given Rocephin as well as azithromycin. Dr. Reed was contacted for inpatient management due to covering physician. Labs Test 09/05/18 17:50 09/05/18 18:34 White Blood Count 11.2 K/UL (4.8-10.8) Red Blood Count 3.86 M/UL (4.20-5.40) Hemoglobin 12.5 G/DL (12.0-16.0) Hematocrit 36.1 % (37.0-47.0) Mean Corpuscular Volume 93 FL (80-99) Mean Corpuscular Hemoglobin 32.3 PG (27.0-31.0) Mean Corpuscular Hemoglobin Concent 34.6 G/DL (32.0-36.0) Red Cell Distribution Width 10.4 % (11.6-14.8) Platelet Count 486 K/UL (150-450) Mean Platelet Volume 5.0 FL (6.5-10.1) Neutrophils (%) (Auto) % (45.0-75.0) Lymphocytes (%) (Auto) % (20.0-45.0) Monocytes (%) (Auto) % (1.0-10.0) Eosinophils (%) (Auto) % (0.0-3.0) Basophils (%) (Auto) % (0.0-2.0) Differential Total Cells Counted 100 Neutrophils % (Manual) 86 % (45-75) Lymphocytes % (Manual) 5 % (20-45) Monocytes % (Manual) 9 % (1-10) Eosinophils % (Manual) 0 % (0-3) Basophils % (Manual) 0 % (0-2) Band Neutrophils 0 % (0-8) Platelet Estimate Increased Platelet Morphology Normal Red Blood Cell Morphology Normal Sodium Level 131 MMOL/L (136-145) Potassium Level 3.4 MMOL/L (3.5-5.1) Chloride Level 96 MMOL/L (98-107) Carbon Dioxide Level 27 MMOL/L (21-32) Anion Gap 8 mmol/L (5-15) Blood Urea Nitrogen 18 mg/dL (7-18) Creatinine 0.9 MG/DL (0.55-1.30) Estimat Glomerular Filtration Rate mL/min (>60) Glucose Level 116 MG/DL (74-106) Lactic Acid Level 1.00 mmol/L (0.4-2.0) Calcium Level 8.6 MG/DL (8.5-10.1) Phosphorus Level 2.9 MG/DL (2.5-4.9) Magnesium Level 1.9 MG/DL (1.8-2.4) Total Bilirubin 0.5 MG/DL (0.2-1.0) Aspartate Amino Transf (AST/SGOT) 133 U/L (15-37) Alanine Aminotransferase (ALT/SGPT) 118 U/L (12-78) Alkaline Phosphatase 125 U/L (46-116) Total Creatine Kinase 56 U/L (26-308) Creatine Kinase MB 1.1 NG/ML (0.0-3.6) Creatine Kinase MB Relative Index 1.9 Troponin I 0.016 ng/mL (0.000-0.056) Pro-B-Type Natriuretic Peptide 2007 pg/mL (0-125) Total Protein 6.2 G/DL (6.4-8.2) Albumin 2.4 G/DL (3.4-5.0) Globulin 3.8 g/dL Albumin/Globulin Ratio 0.6 (1.0-2.7) Urine Color Yellow Urine Appearance Clear Urine pH 7 (4.5-8.0) Urine Specific [place] 1.005 (1.005-1.035) Urine Protein 1+ (NEGATIVE) Urine Glucose (UA) Negative (NEGATIVE) Urine Ketones Negative (NEGATIVE) Urine Blood Negative (NEGATIVE) Urine Nitrite Negative (NEGATIVE) Urine Bilirubin Negative (NEGATIVE) Urine Urobilinogen 1 MG/DL (0.0-1.0) Urine Leukocyte Esterase 1+ (NEGATIVE) Urine RBC 0-2 /HPF (0 - 2) Urine WBC 2-4 /HPF (0 - 2) Urine Squamous Epithelial Cells Few /LPF (NONE/OCC) Urine Bacteria Few /HPF (NONE) Last Vital Signs Date Time Temp Pulse Resp B/P (MAP) Pulse Ox O2 Delivery O2 Flow Rate FiO2 09/05/18 21:31 212/101 09/05/18 19:15 90 19 Nasal Cannula 2.0 09/05/18 19:13 98.2 99 Status: improved Disposition: HOME, SELF-CARE Condition: Stable Referrals: Lorenzo Lock MD (PCP) Ramy Paredes MD Sep 05, 2018 23:40
[2018-09-06] VITALS (7 sets, daily range): BP systolic 101–162; BP diastolic 52–90
[2018-09-06 07:14] LABS: HEMATOCRIT 35.5 % (37.0-47.0); HEMOGLOBIN 12.4 G/DL (12.0-16.0); MEAN CORPUSCULAR VOLUME 92 FL (80-99); PLATELET COUNT 506 K/UL (150-450); RED BLOOD COUNT 3.85 M/UL (4.20-5.40); RED CELL DISTRIBUTION WIDTH 10.5 % (11.6-14.8); WHITE BLOOD COUNT 10.5 K/UL (4.8-10.8)
--- NOTE | 2018-09-06 07:25 | NUR ---
HAND-OFF: Report given to ALEXANDER Marroquin. Pt stable.
[2018-09-06 07:31] LABS: ANION GAP 9 mmol/L (5-15); BLOOD UREA NITROGEN 16 mg/dL (7-18); CALCIUM 8.3 MG/DL (8.5-10.1); CARBON DIOXIDE 26 MMOL/L (21-32); CHLORIDE 95 MMOL/L (98-107); CREATININE 0.8 MG/DL (0.55-1.30); POTASSIUM 3.5 MMOL/L (3.5-5.1); SODIUM 130 MMOL/L (136-145)
--- NOTE | 2018-09-06 07:34 | NUR ---
CASE MANAGEMENT:REVIEW 82 YR OLD FEMALE BIBA FROM [facility] CC: FEVER OF 102.0 AND CONGESTION SI: PNA. RESISTANT UTI 87 20 130/70 91% ON 2L/NC WBC+11.2 NA-131 IS: TYLENOL OCCUPATIONAL THERAPIST ASSISTANTS IV ROCEPHIN IV AZITHROMYCIN IV LASIX CXR BLOOD CX : TO TELEMETRY IS: IVF@65/HR INTERQUAL CRITERIA MET
[2018-09-06] MEDS ORDERED: Docusate 100mg cap ORAL SCH (09:00)
[2018-09-06] MEDS: Losartan 50mg tab ORAL SCH ×2 (09:16→17:38)
[2018-09-06] MEDS: Metoprolol Tartrate 50mg tab ORAL SCH ×2 (09:17→21:08)
[2018-09-06] MEDS: Heparin 5000 units/ml inj SUBQ SCH ×2 (09:18→21:09)
[2018-09-06] MEDS ORDERED: Promethazine/Codeine 5ml UD ORAL PRN (10:30)
--- NOTE | 2018-09-06 10:37 | Consultation ---
History of Present Illness General Date patient seen: Sep 06, 2018 Chief Complaint: Fever Present Illness HPI 82-year-old female with hx of HTN pubic fracture, Dementia sent in by longterm because of fever, temperature up to 102 degrees. She had been given Tylenol prior to arrival. She had some cough as well. There is no cxr from admission available yet. Allergies: Coded Allergies: LATEX (Verified Allergy, Unknown, 02/11/09) MELOXICAM (Verified Allergy, Unknown, 02/11/09) PREDNISONE (Verified Allergy, Unknown, 02/11/09) Medication History Scheduled Atorvastatin Calcium* (Lipitor*), 10 MG ORAL BEDTIME Docusate Sodium (Dok), 100 MG ORAL TWICE A DAY Ergocalciferol (Vitamin D2)* (Vitamin D*), 50,000 UNIT ORAL ONCE A WEEK, ( Reported) Losartan Potassium* (Cozaar*), 50 MG ORAL BID Metoprolol Tartrate* (Metoprolol Tartrate*), 50 MG ORAL Q12HR Nitrofurantoin Monohyd/M-Cryst* (Macrobid 100 Mg*), 100 MG ORAL EVERY 12 HOURS, (Reported) Pantoprazole* (Protonix*), 40 MG ORAL DAILY Scheduled PRN Acetaminophen* (Acetaminophen 325MG Tablet*), 650 MG ORAL Q6H PRN for PAIN/TEMP > 101, (Reported) Discontinued Medications Atorvastatin Calcium* (Lipitor*), 10 MG ORAL BEDTIME, (Reported) Discontinued Reason: MD discontinued med Folic Acid/Multivits-Min/Lut (Centrum Silver Chewable Tablet), 1 EACH PO DAILY, (Reported) Discontinued Reason: MD discontinued med Lactobacillus Acidophilus (Probiotic), 1 EACH PO DAILY, (Reported) Discontinued Reason: MD discontinued med Losartan Potassium* (Losartan Potassium*), 50 MG ORAL BID, (Reported) Discontinued Reason: MD discontinued med Metoprolol Succinate* (Metoprolol Succinate*), 25 MG ORAL BID, (Reported) Discontinued Reason: MD discontinued med Ranitidine Hcl* (Zantac*), 150 MG ORAL DAILY PRN for PRN ACID REFLUX, (Reported) Discontinued Reason: MD discontinued med Patient History Healthcare decision maker family member Resuscitation status Full Code Advanced Directive on File Past Medical/Surgical History Past Medical/Surgical History: (1) HTN (hypertension) (2) Pubic bone fracture (3) FTT (failure to thrive) in adult Review of Systems Respiratory: Reports: cough, shortness of breath All Other Systems: negative except mentioned in HPI Physical Exam General Appearance: cachetic Lines, tubes and drains: peripheral Neck: non-tender, normal alignment Respiratory/Chest: chest wall non-tender, lungs clear Cardiovascular/Chest: normal peripheral pulses, normal rate Abdomen: normal bowel sounds, non tender Genitourinary/Rectal: normal genital exam Skin Exam: normal pigmentation Neurologic: lean specialist II-XII grossly normal Last 24 Hour Vital Signs Date Time Temp Pulse Resp B/P (MAP) Pulse Ox O2 Delivery O2 Flow Rate FiO2 09/06/18 09:17 88 155/76 09/06/18 09:16 155/76 09/06/18 04:00 97.7 89 18 155/76 (102) 95 09/06/18 04:00 88 09/06/18 02:47 Nasal Cannula 2.0 09/06/18 00:00 97.1 97 18 162/89 (113) 94 09/05/18 22:30 98.2 90 23 164/80 100 Nasal Cannula 2.0 09/05/18 22:30 98.2 90 23 164/80 100 Nasal Cannula 2.0 09/05/18 21:31 212/101 09/05/18 19:15 90 19 Nasal Cannula 2.0 09/05/18 19:13 98.2 90 19 159/81 99 Nasal Cannula 2.0 09/05/18 17:14 98.2 87 20 130/70 91 Nasal Cannula 2.0 Laboratory Tests Test 09/05/18 17:50 09/05/18 18:34 09/06/18 04:45 White Blood Count 11.2 K/UL (4.8-10.8) H 10.5 K/UL (4.8-10.8) Red Blood Count 3.86 M/UL (4.20-5.40) L 3.85 M/UL (4.20-5.40) L Hemoglobin 12.5 G/DL (12.0-16.0) 12.4 G/DL (12.0-16.0) Hematocrit 36.1 % (37.0-47.0) L 35.5 % (37.0-47.0) L Mean Corpuscular Volume 93 FL (80-99) 92 FL (80-99) Mean Corpuscular Hemoglobin 32.3 PG (27.0-31.0) H 32.1 PG (27.0-31.0) H Mean Corpuscular Hemoglobin Concent 34.6 G/DL (32.0-36.0) 34.8 G/DL (32.0-36.0) Red Cell Distribution Width 10.4 % (11.6-14.8) L 10.5 % (11.6-14.8) L Platelet Count 486 K/UL (150-450) H 506 K/UL (150-450) H Mean Platelet Volume 5.0 FL (6.5-10.1) L 5.4 FL (6.5-10.1) L Neutrophils (%) (Auto) % (45.0-75.0) % (45.0-75.0) Lymphocytes (%) (Auto) % (20.0-45.0) % (20.0-45.0) Monocytes (%) (Auto) % (1.0-10.0) % (1.0-10.0) Eosinophils (%) (Auto) % (0.0-3.0) % (0.0-3.0) Basophils (%) (Auto) % (0.0-2.0) % (0.0-2.0) Differential Total Cells Counted 100 Neutrophils % (Manual) 86 % (45-75) H Pending Lymphocytes % (Manual) 5 % (20-45) L Pending Monocytes % (Manual) 9 % (1-10) Eosinophils % (Manual) 0 % (0-3) Basophils % (Manual) 0 % (0-2) Band Neutrophils 0 % (0-8) Platelet Estimate Increased H Pending Platelet Morphology Normal Pending Red Blood Cell Morphology Normal Sodium Level 131 MMOL/L (136-145) L 130 MMOL/L (136-145) L Potassium Level 3.4 MMOL/L (3.5-5.1) L 3.5 MMOL/L (3.5-5.1) Chloride Level 96 MMOL/L (98-107) L 95 MMOL/L (98-107) L Carbon Dioxide Level 27 MMOL/L (21-32) 26 MMOL/L (21-32) Anion Gap 8 mmol/L (5-15) 9 mmol/L (5-15) Blood Urea Nitrogen 18 mg/dL (7-18) 16 mg/dL (7-18) Creatinine 0.9 MG/DL (0.55-1.30) 0.8 MG/DL (0.55-1.30) Estimat Glomerular Filtration Rate mL/min (>60) mL/min (>60) Glucose Level 116 MG/DL (74-106) H 100 MG/DL (74-106) Lactic Acid Level 1.00 mmol/L (0.4-2.0) Calcium Level 8.6 MG/DL (8.5-10.1) 8.3 MG/DL (8.5-10.1) L Phosphorus Level 2.9 MG/DL (2.5-4.9) Magnesium Level 1.9 MG/DL (1.8-2.4) 1.9 MG/DL (1.8-2.4) Total Bilirubin 0.5 MG/DL (0.2-1.0) Aspartate Amino Transf (AST/SGOT) 133 U/L (15-37) H Alanine Aminotransferase (ALT/SGPT) 118 U/L (12-78) H Alkaline Phosphatase 125 U/L (46-116) H Total Creatine Kinase 56 U/L (26-308) Creatine Kinase MB 1.1 NG/ML (0.0-3.6) Creatine Kinase MB Relative Index 1.9 Troponin I 0.016 ng/mL (0.000-0.056) Pro-B-Type Natriuretic Peptide 2007 pg/mL (0-125) H Total Protein 6.2 G/DL (6.4-8.2) L Albumin 2.4 G/DL (3.4-5.0) L Globulin 3.8 g/dL Albumin/Globulin Ratio 0.6 (1.0-2.7) L Urine Color Yellow Urine Appearance Clear Urine pH 7 (4.5-8.0) Urine Specific [place] 1.005 (1.005-1.035) Urine Protein 1+ (NEGATIVE) H Urine Glucose (UA) Negative (NEGATIVE) Urine Ketones Negative (NEGATIVE) Urine Blood Negative (NEGATIVE) Urine Nitrite Negative (NEGATIVE) Urine Bilirubin Negative (NEGATIVE) Urine Urobilinogen 1 MG/DL (0.0-1.0) H Urine Leukocyte Esterase 1+ (NEGATIVE) H Urine RBC 0-2 /HPF (0 - 2) Urine WBC 2-4 /HPF (0 - 2) Urine Squamous Epithelial Cells Few /LPF (NONE/OCC) Urine Bacteria Few /HPF (NONE) Microbiology Date/Time Source Procedure Growth Status 09/05/18 17:50 Nasal Nares Influenza Types A,B Antigen (ARJUN) - Final Complete 09/05/18 18:55 Rectum Received Height (Feet): 5 Height (Inches): 4.00 Weight (Pounds): 110 Medications Current Medications Medications (Trade) Dose Ordered Sig/Cassy Route PRN Reason Start Time Stop Time Status Last Admin Dose Admin Acetaminophen (Tylenol) 650 mg Q6H PRN ORAL PAIN/TEMP > 101 09/05/18 23:45 10/05/18 23:44 Atorvastatin Calcium (Lipitor) 10 mg BEDTIME ORAL 09/06/18 21:00 10/06/18 20:59 Ceftriaxone Sodium 1 gm/ Dextrose 55 ml @ 110 mls/hr Q24H IVPB 09/06/18 18:00 09/13/18 17:59 Docusate Sodium (Colace) 100 mg TWICE A DAY ORAL 09/06/18 09:00 10/06/18 08:59 09/06/18 09:16 Ergocalciferol (Drisdol) 50,000 intlu ONCE A WEEK ORAL 09/08/18 09:00 10/08/18 08:59 Heparin Sodium (Porcine) (Heparin 5000 units/ml) 5,000 units EVERY 12 HOURS SUBQ 09/06/18 09:00 10/06/18 08:59 09/06/18 09:18 Losartan Potassium (Cozaar) 50 mg BID ORAL 09/06/18 09:00 10/06/18 08:59 09/06/18 09:16 Metoprolol Tartrate (Lopressor) 50 mg Q12HR ORAL 09/06/18 09:00 10/06/18 08:59 09/06/18 09:17 Nitrofurantoin (Macrobid) 100 mg EVERY 12 HOURS ORAL 09/06/18 09:00 10/06/18 08:59 09/06/18 09:16 Pantoprazole (Protonix) 40 mg DAILY ORAL 09/06/18 09:00 10/06/18 08:59 09/06/18 09:16 Promethazine HCl/ Codeine (Phenergan with Codeine) 5 ml Q4H PRN ORAL For Cough 09/06/18 10:30 10/06/18 10:29 UNV Sodium Chloride 1,000 ml @ 65 mls/hr [id number] IV 09/06/18 04:00 10/06/18 03:59 09/06/18 03:50 Assessment/Plan Problem List: (1) Pneumonia ICD Codes: J18.9 - Pneumonia, unspecified organism SNOMED: 978295045 (2) UTI (urinary tract infection) ICD Codes: N39.0 - Urinary tract infection, site not specified SNOMED: 82181094 (3) Alzheimer's dementia ICD Codes: G30.9 - Alzheimer's disease, unspecified; F02.80 - Dementia in other diseases classified elsewhere without behavioral disturbance SNOMED: 79778983 (4) Protein-calorie malnutrition, severe ICD Codes: E43 - Unspecified severe protein-calorie malnutrition SNOMED: 522784977, 896861655, 958514493 (5) Pubic bone fracture ICD Codes: S32.509A - Unspecified fracture of unspecified pubis, initial encounter for closed fracture SNOMED: 58106747 (6) FTT (failure to thrive) in adult ICD Codes: R62.7 - Adult failure to thrive SNOMED: 411195038 Assessment/Plan cxr respiratory treatment check sputum iv abx sputum cultures antitussives dvt prophylaxis. Marcy Tierney MD Sep 06, 2018 10:37
--- NOTE | 2018-09-06 10:55 | Diagnostic Imaging Report ---
Indication: Shortness of breath Technique: One view of the chest Comparison: 08/03/2008 Findings: Inspiration is suboptimal. There is suggestion of a small right pleural effusion. There is right infrahilar infiltrate. The left costophrenic angle is blunted. This probably due to atelectasis but small effusion on the left not excludable. The heart size is upper limits normal. Impression: Suspect right infrahilar infiltrate and right-sided pleural effusion Cannot rule out small left-sided pleural effusion This agrees with the preliminary interpretation provided overnight by [facility] teleradiology service.
--- NOTE | 2018-09-06 13:16 | Cardiology Report ---
APPROVED REPORT EKG Measurement Heart [id number] Sinus rhythm with premature supraventricular complexes and with occasional premature ventricular complexes Minimal voltage criteria for LVH, may be normal variant Possible Anterior infarct, age undetermined Abnormal ECG
--- NOTE | 2018-09-06 14:02 | Infectious Diseases Prog Note ---
Assessment/Plan Problems: (1) Aspiration pneumonia Assessment & Plan: with right side infrahilar infiltrates , complicated with pleural effusion , will start zosyn empiric coverage and send sputum culture if she produces any , aspiration precaution and keep HOB > 30 degree (2) UTI (urinary tract infection) Assessment & Plan: already on zosyn, will send urine culture (3) Sepsis Assessment & Plan: due to the above , will start vancomycin and zosyn empirically pending cultures, will deescalate antibiotics based on cultures result (4) FTT (failure to thrive) in adult Assessment & Plan: will screen for syphilis and HIV (5) Fever Assessment & Plan: suspect due to the above, continue wide spectrum antibiotics and tylenol as needed Subjective Allergies: Coded Allergies: LATEX (Verified Allergy, Unknown, 02/11/09) MELOXICAM (Verified Allergy, Unknown, 02/11/09) PREDNISONE (Verified Allergy, Unknown, 02/11/09) Objective Vital Signs Last 24 Hour Vital Signs Date Time Temp Pulse Resp B/P (MAP) Pulse Ox O2 Delivery O2 Flow Rate FiO2 09/06/18 09:17 88 155/76 09/06/18 09:16 155/76 09/06/18 04:00 97.7 89 18 155/76 (102) 95 09/06/18 04:00 88 09/06/18 02:47 Nasal Cannula 2.0 09/06/18 00:00 97.1 97 18 162/89 (113) 94 09/05/18 22:30 98.2 90 23 164/80 100 Nasal Cannula 2.0 09/05/18 22:30 98.2 90 23 164/80 100 Nasal Cannula 2.0 09/05/18 21:31 212/101 09/05/18 19:15 90 19 Nasal Cannula 2.0 09/05/18 19:13 98.2 90 19 159/81 99 Nasal Cannula 2.0 09/05/18 17:14 98.2 87 20 130/70 91 Nasal Cannula 2.0 Height (Feet): 5 Height (Inches): 4.00 Weight (Pounds): 110 Microbiology Date/Time Source Procedure Growth Status 09/05/18 17:50 Nasal Nares Influenza Types A,B Antigen (ARJUN) - Final Complete 09/05/18 18:55 Rectum Received Laboratory Tests Test 09/05/18 17:50 09/05/18 18:34 09/06/18 04:45 White Blood Count 11.2 K/UL (4.8-10.8) H 10.5 K/UL (4.8-10.8) Red Blood Count 3.86 M/UL (4.20-5.40) L 3.85 M/UL (4.20-5.40) L Hemoglobin 12.5 G/DL (12.0-16.0) 12.4 G/DL (12.0-16.0) Hematocrit 36.1 % (37.0-47.0) L 35.5 % (37.0-47.0) L Mean Corpuscular Volume 93 FL (80-99) 92 FL (80-99) Mean Corpuscular Hemoglobin 32.3 PG (27.0-31.0) H 32.1 PG (27.0-31.0) H Mean Corpuscular Hemoglobin Concent 34.6 G/DL (32.0-36.0) 34.8 G/DL (32.0-36.0) Red Cell Distribution Width 10.4 % (11.6-14.8) L 10.5 % (11.6-14.8) L Platelet Count 486 K/UL (150-450) H 506 K/UL (150-450) H Mean Platelet Volume 5.0 FL (6.5-10.1) L 5.4 FL (6.5-10.1) L Neutrophils (%) (Auto) % (45.0-75.0) % (45.0-75.0) Lymphocytes (%) (Auto) % (20.0-45.0) % (20.0-45.0) Monocytes (%) (Auto) % (1.0-10.0) % (1.0-10.0) Eosinophils (%) (Auto) % (0.0-3.0) % (0.0-3.0) Basophils (%) (Auto) % (0.0-2.0) % (0.0-2.0) Differential Total Cells Counted 100 100 Neutrophils % (Manual) 86 % (45-75) H 88 % (45-75) H Lymphocytes % (Manual) 5 % (20-45) L 4 % (20-45) L Monocytes % (Manual) 9 % (1-10) 6 % (1-10) Eosinophils % (Manual) 0 % (0-3) 0 % (0-3) Basophils % (Manual) 0 % (0-2) 0 % (0-2) Band Neutrophils 0 % (0-8) 2 % (0-8) Platelet Estimate Increased H Increased H Platelet Morphology Normal Normal Red Blood Cell Morphology Normal Normal Sodium Level 131 MMOL/L (136-145) L 130 MMOL/L (136-145) L Potassium Level 3.4 MMOL/L (3.5-5.1) L 3.5 MMOL/L (3.5-5.1) Chloride Level 96 MMOL/L (98-107) L 95 MMOL/L (98-107) L Carbon Dioxide Level 27 MMOL/L (21-32) 26 MMOL/L (21-32) Anion Gap 8 mmol/L (5-15) 9 mmol/L (5-15) Blood Urea Nitrogen 18 mg/dL (7-18) 16 mg/dL (7-18) Creatinine 0.9 MG/DL (0.55-1.30) 0.8 MG/DL (0.55-1.30) Estimat Glomerular Filtration Rate mL/min (>60) mL/min (>60) Glucose Level 116 MG/DL (74-106) H 100 MG/DL (74-106) Lactic Acid Level 1.00 mmol/L (0.4-2.0) Calcium Level 8.6 MG/DL (8.5-10.1) 8.3 MG/DL (8.5-10.1) L Phosphorus Level 2.9 MG/DL (2.5-4.9) Magnesium Level 1.9 MG/DL (1.8-2.4) 1.9 MG/DL (1.8-2.4) Total Bilirubin 0.5 MG/DL (0.2-1.0) Aspartate Amino Transf (AST/SGOT) 133 U/L (15-37) H Alanine Aminotransferase (ALT/SGPT) 118 U/L (12-78) H Alkaline Phosphatase 125 U/L (46-116) H Total Creatine Kinase 56 U/L (26-308) Creatine Kinase MB 1.1 NG/ML (0.0-3.6) Creatine Kinase MB Relative Index 1.9 Troponin I 0.016 ng/mL (0.000-0.056) Pro-B-Type Natriuretic Peptide 2007 pg/mL (0-125) H Total Protein 6.2 G/DL (6.4-8.2) L Albumin 2.4 G/DL (3.4-5.0) L Globulin 3.8 g/dL Albumin/Globulin Ratio 0.6 (1.0-2.7) L Urine Color Yellow Urine Appearance Clear Urine pH 7 (4.5-8.0) Urine Specific [place] 1.005 (1.005-1.035) Urine Protein 1+ (NEGATIVE) H Urine Glucose (UA) Negative (NEGATIVE) Urine Ketones Negative (NEGATIVE) Urine Blood Negative (NEGATIVE) Urine Nitrite Negative (NEGATIVE) Urine Bilirubin Negative (NEGATIVE) Urine Urobilinogen 1 MG/DL (0.0-1.0) H Urine Leukocyte Esterase 1+ (NEGATIVE) H Urine RBC 0-2 /HPF (0 - 2) Urine WBC 2-4 /HPF (0 - 2) Urine Squamous Epithelial Cells Few /LPF (NONE/OCC) Urine Bacteria Few /HPF (NONE) Osmolality 270 mOsm/kg (297-317) L Uric Acid 2.9 MG/DL (2.6-7.2) Thyroid Stimulating Hormone (TSH) 0.945 uiU/mL (0.358-3.740) Free Thyroxine 1.43 NG/DL (0.76-1.46) Free Triiodothyronine 1.5 pg/mL (2.3-4.2) L Cortisol Pending Current Medications Medications (Trade) Dose Ordered Sig/Cassy Route PRN Reason Start Time Stop Time Status Last Admin Dose Admin Acetaminophen (Tylenol) 650 mg Q6H PRN ORAL PAIN/TEMP > 101 09/05/18 23:45 10/05/18 23:44 Atorvastatin Calcium (Lipitor) 10 mg BEDTIME ORAL 09/06/18 21:00 10/06/18 20:59 Ceftriaxone Sodium 1 gm/ Dextrose 55 ml @ 110 mls/hr Q24H IVPB 09/06/18 18:00 09/13/18 17:59 Clonidine HCl (Catapres Tab) 0.1 mg Q4H PRN ORAL bp over 160 syst 09/06/18 11:00 10/06/18 10:59 Docusate Sodium (Colace) 100 mg TWICE A DAY ORAL 09/06/18 09:00 10/06/18 08:59 09/06/18 09:16 Ergocalciferol (Drisdol) 50,000 intlu ONCE A WEEK ORAL 09/08/18 09:00 10/08/18 08:59 Heparin Sodium (Porcine) (Heparin 5000 units/ml) 5,000 units EVERY 12 HOURS SUBQ 09/06/18 09:00 10/06/18 08:59 09/06/18 09:18 Losartan Potassium (Cozaar) 50 mg BID ORAL 09/06/18 09:00 10/06/18 08:59 09/06/18 09:16 Metoprolol Tartrate (Lopressor) 50 mg Q12HR ORAL 09/06/18 09:00 10/06/18 08:59 09/06/18 09:17 Pantoprazole (Protonix) 40 mg Q12HR ORAL 09/06/18 21:00 10/06/18 08:59 Promethazine HCl/ Codeine (Phenergan with Codeine) 5 ml Q4H PRN ORAL For Cough 09/06/18 10:30 10/06/18 10:29 Carlie Parikh M.D. Sep 06, 2018 14:02
--- NOTE | 2018-09-06 14:41 | NUR ---
ST NOTE: BEDSIDE SWALLOW EVAL RECEIVED BEDSIDE SWALLOW EVAL ORDER CHART REVIEWED PRIOR THE EVALUATION PT IS A 82-YEAR-OLD FEMALE WHO WAS ADMITTED DUE TO UTI AND PNA DYSPHAGIA RISK FACTORS: R-SIDED INFRAHILAR INFILTRATE, HTN, SOME DEGREE OF DECREASED COGNITION9(? DEMENTIA), CARDIAC DISORDER, LIMITED MOVEMENT, ? L VOCAL FOLD PARALYSIS(OP [facility] [place] 08/2012) PT IS ON PROTONIX. PLOF: PER PT'S NEPHEW, PT LIVED AT HOME PRIOR THE FALL, PT HAS PUBIC BONE FRACTURE; AND PT WAS RECENTLY HOSPITALIZED AT [facility] [facility] AND WAS SENT TO INTERMEDIATE HOME. PT WAS ON REGULAR WITH THIN LIQUIDS. PER PT'S POLST: FULL CODE AND FULL TREATMENT AND OKAY FOR TRIAL PERIOD OF ARTIFICIAL NUTRITION, INCLUDING FEEDING TUBES. CURRENT STATUS: PT SEEN AT BEDSIDE IN PM. ALERT, COOPERATIVE, FOLLOWS SIMPLE DIRECTIONS, PT WITH NC(2L), OXYGEN LEVEL: 95% PT ATE 75% OF LUNCH. PER PT'S NEPHEW, PT TOLERATED MECH SOFT(CHOPPED) FOOD WITH THIN LIQUIDS WITHOUT OVERT S/S OF ASPIRATION. PER PT'S NEPHEW, CONCERN PT HAS UNDERLYING DEMENTIA. GIVEN PO TRIALS: THIN(STRAW), NECTAR THICK(TSP), PUREE(TSP), PT REFUSED MASTICATED SOLID PO TRIALS. INITIAL IMPRESSION: PROBABLE MILD OR WORSENED OROPHARYNGEAL DYSPHAGIA MILDLY INCREASED ORAL TRANSIT TIME AND OROPHARYNGEAL TRANSIT TIME FAIR LARYNGEAL ELEVATION, NO OVERT S/S OF ASPIRATION. HAS SILENT ASPIRATION RISK DUE TO PT HAS R-SIDED PNA. RECOMMENDATIONS: 1. FOR QUALITY OF LIFE, CONTINUE ORAL DIET CHANGED DIET TO MECH SOFT(CHOPPED) WITH NECTAR THICK LIQUIDS DIET 2. STRICT ASPIRATION PRECAUTIONS WITH 1TO1 FEEDING. 3. VIDEOSWALLOW STUDY IP OR OP 4. SPEECH/LANGUAGE/COGNITION EVAL D/W PT'S NEPHEW AND RNHARRY. POSTED ASPIRATION/REFLUX PRECAUTIONS SIGN.
[2018-09-06] MEDS: Piperacillin/Tazobactam 3.375 GM in D5W 110 ML IVPB SCH ×2 (15:25→22:45)
--- NOTE | 2018-09-06 16:08 | History & Physical ---
History and Physical History & Physicial Patient was under my care and discharged last week under the care of Dr Lock found to be febrile, readmitted last night to Dr Pennington in error. Patient is an 82-year-old female sent in by [facility] after increased fever. Patient was noted to have increased temperature up to 102 degrees. Patient was sent in by [facility] by Dr. Reed. Patient was noted to have prior history of some dementia. She had been given Tylenol prior to arrival. She had not been having any fever. Patient had recently been treated with a urinary tract infection Allergies: LATEX (Verified Allergy, Unknown, 02/11/09) MELOXICAM (Verified Allergy, Unknown, 02/11/09) PREDNISONE (Verified Allergy, Unknown, 02/11/09) Hx Cardiac Problems: Yes Hx Hypertension: Yes s/p pubic bone fx FTT UTI discharge on macrobid Now; - Aspiration pneumonia , UTI (urinary tract infection), Fever Plan; pulm Toilet Abx BP control Max Randolph MD Sep 06, 2018 16:08
--- NOTE | 2018-09-06 16:45 | Diagnostic Imaging Report ---
Indication: Urinary tract infection, pain, abnormal renal function tests Technique: Grayscale and duplex images of the kidneys, retroperitoneum, and bladder were obtained. Comparison: none Findings: Right kidney measures 10.9 cm in length. Left kidney measures 10 cm in length. Both kidneys demonstrate normal echogenicity. No hydronephrosis. Right kidney demonstrates multiple small cysts. Left kidney demonstrates equivocal small amount of perinephric fluid adjacent to the upper pole.. Normal inferior vena cava. Bladder is mildly distended, calculated volume 342 mm. Impression: Negative for hydronephrosis Questionable left perinephric fluid; if real, could indicate left renal inflammation Mildly distended bladder Multiple right renal cysts incidentally noted.
[2018-09-06] MEDS: Docusate 100mg cap ORAL SCH (17:37)
[2018-09-06] MEDS ORDERED: cefTRIAXone 1 GM in D5W 55 ML IVPB SCH (18:00)
[2018-09-06] MEDS: HydrALAZINE 25mg tab ORAL SCH ×2 (18:05→23:41)
[2018-09-06] MEDS ORDERED: Vancomycin 1gm/D5W 275ml IVPB ONE ×2 (19:30)
--- NOTE | 2018-09-06 19:45 | NUR ---
NURSE NOTES: Received pt from ALEXNA[facility] Marroquin. Pt asleep. Bed in lowest position. Call light within reach. Will continue to monitor.
--- NOTE | 2018-09-06 20:01 | Consultation ---
DATE OF CONSULTATION: 09/06/2018 INFECTIOUS DISEASE CONSULTATION CONSULTING PHYSICIAN: Carlie Parikh M.D. REFERRING PHYSICIAN: Max Randolph M.D. REASON FOR CONSULTATION: Pneumonia with fever and UTI. Recommendation for antimicrobial treatment. The patient is a halfway patient. HISTORY OF PRESENT ILLNESS: The patient is an 82-year-old female, halfway resident of [facility], was sent to [facility] Emergency Room for increasing temperature up to 102. The patient was found to be congested and coughing with some phlegm. She had no difficulty breathing, but her cough has been getting worse, so she was sent to the emergency room. In the ER, the patient's saturation was low of 91% on two liters nasal cannula and had temperature of 98.2. Chest x-ray showed right infrahilar infiltration with pleural effusion concerning for pneumonia, so Infectious Disease consultation was requested for antibiotics treatment and further management. As of note, the patient is demented, cannot provide good history. History was mainly obtained from the medical record and nursing staff. REVIEW OF SYSTEMS: Unable to obtain. The patient is a poor historian and cannot provide good history. PAST MEDICAL HISTORY: Significant for cardiac disease and hypertension. PAST SURGICAL HISTORY: Not on record. FAMILY HISTORY: Unable to obtain. SOCIAL HISTORY: She is a halfway resident at [facility]. No recent drugs, tobacco, or alcohol. ALLERGIES: She is allergic to latex, meloxicam, and prednisone. MEDICATIONS: The patient was started on ceftriaxone 1 g IV q.24 h. For rest of her medications, please refer to MAR. LABORATORY DATA: White count 10.5, hemoglobin 12.4, and platelet count 506. BUN 16, creatinine 0.8. Urinalysis showed +1 leukocyte esterase and few bacteria. Microbiology, influenza A and B both screening were negative. Radiology - chest x-ray showed right infrahilar infiltrate and right-sided pleural effusion. Cannot rule out small left side pleural effusion. PHYSICAL EXAMINATION: VITAL SIGNS: Temperature 97.7, pulse 89, respirations 18, and blood pressure 155/76. Pulse oximetry 95% on 2 L nasal cannula. GENERAL: Elderly female, lying in bed, awake, alert, and responsive, coughing and congested, not in acute distress. HEENT: Normocephalic and atraumatic. Pupils are reactive to light equally. Pale sclerae. Moist oral mucosa. No exudate or thrush. NECK: Supple. No lymphadenopathy. No JVD. CARDIOVASCULAR: Regular rate and rhythm. No murmur or gallop. LUNGS: The patient has rales and diminished breathing sounds at the bases with mild wheezing. ABDOMEN: Soft, nontender, and nondistended. Normal bowel sounds. No hepatosplenomegaly or ascites. No rebound. GENITOURINARY: Normal genitalia. No Escobar catheter. EXTREMITIES: No edema or cyanosis. No clubbing. SKIN: No rash. No hives. ASSESSMENT AND RECOMMENDATION: 1. Aspiration pneumonia with right-sided infrahilar infiltrates complicated with pleural effusion. We will start Zosyn empiric coverage and send sputum culture if she produces any. Aspiration precaution and keep head of bed more than 30 degrees. We will order swallow evaluation. 2. Urinary tract infection. The patient is already on Zosyn pending urine culture. 3. Sepsis with fever due to the above. We will start vancomycin and Zosyn empirically pending culture. We will deescalate antibiotics based on her culture results. 4. Failure to thrive in adult. We will screen the patient for syphilis and HIV. 5. Fever suspect due to the above. Continue wide-spectrum antibiotics and Tylenol as needed. Thank you for the consult. ID will continue to follow. Carlie Parikh M.D. DR: GABBI JOB#: [id number] CC:
--- NOTE | 2018-09-06 23:33 | NUR ---
NURSE NOTES: Called and left a message with Dr. Randolph regarding pts request for cough syrup. He gave the following orders: Phenalgen w/ codeine 10 cc PRN TID Will input order and will continue to monitor.
[2018-09-07 03:58] VITALS: BP 158/81
[2018-09-07] MEDS: Promethazine/Codeine 5ml UD ORAL PRN (04:35)
[2018-09-07] MEDS: Piperacillin/Tazobactam 3.375 GM in D5W 110 ML IVPB SCH ×3 (04:58→21:53)
[2018-09-07] MEDS: HydrALAZINE 25mg tab ORAL SCH ×2 (04:59→11:08)
--- NOTE | 2018-09-07 07:11 | NUR ---
HAND-OFF: Report given to ALEXANDER Marroquin. Pt stable.
--- NOTE | 2018-09-07 07:37 | Pulmonology Progress Note ---
Assessment/Plan Assessment/Plan ASSESSMENT Sepsis asp PNA severe protein calorie malnutrition possible UTI elevated LFT s/p pubic bone fracture elevated pro BNP HTN with prior HTN urgency PLAN OF CARE tele O2 titrate to keep pulse ox above 90% Pulmonary toilet with HHN and CPT Antitussive prn Antibiotic as per ID blood cx prel negative rapid influenza screen test negative RPR nonreactive HIV nonreactive swallow eval aspiration precaution s/p IV fluids consider ECHO as per PMD description hyponatremia workup per PMD DVT ,GI prophylaxis BP management with multiple anti HTN renal ultrasound no hydro monitor renal parameters and electrolytes, correct electrolytes as needed , avoid nephrotoxics; replace K trend LFT- small trend down bowel regimen dietary eval case discussed and evaluated by supervising physician Subjective Allergies: Coded Allergies: LATEX (Verified Allergy, Unknown, 02/11/09) MELOXICAM (Verified Allergy, Unknown, 02/11/09) PREDNISONE (Verified Allergy, Unknown, 02/11/09) Subjective Leukocytosis resolved, afebrile, Pulse oximetry stable on 2 L O2 via NC Objective Last 24 Hour Vital Signs Date Time Temp Pulse Resp B/P (MAP) Pulse Ox O2 Delivery O2 Flow Rate FiO2 09/07/18 04:59 158/81 09/07/18 04:00 82 09/07/18 03:58 98.7 89 158/81 (106) 92 09/07/18 00:00 87 09/06/18 23:41 140/84 09/06/18 23:31 98.3 92 140/84 (102) 09/06/18 21:08 93 157/90 09/06/18 21:00 Nasal Cannula 2.0 09/06/18 20:31 98.5 93 18 157/90 (112) 09/06/18 20:00 86 09/06/18 18:05 163/81 09/06/18 17:40 163/81 09/06/18 17:38 163/81 09/06/18 16:00 96 09/06/18 16:00 97.5 82 18 101/52 (68) 95 09/06/18 12:00 93 09/06/18 12:00 97.9 87 18 151/74 (99) 95 09/06/18 09:17 88 155/76 09/06/18 09:16 155/76 09/06/18 09:00 Nasal Cannula 2.0 09/06/18 08:00 98.1 84 18 152/82 (105) 95 09/06/18 08:00 84 Intake and Output 09/06/18 09/07/18 19:00 07:00 Intake Total 120 ml Balance 120 ml Intake Oral 120 ml # Voids 2 2 General Appearance: no acute distress, cachetic, other - elderly frail female awake, responsive, weak HEENT: normocephalic, atraumatic, anicteric, mucous membranes moist Respiratory/Chest: no respiratory distress, no accessory muscle use, decreased breath sounds, other Cardiovascular: normal rate, regular rhythm - on tele SR Abdomen: normal bowel sounds, soft, non tender, non distended Extremities: no edema, pedal pulses normal Neurologic/Psychiatric: abnormal gait, alert, responsive Musculoskeletal: atrophy - BLE Microbiology Date/Time Source Procedure Growth Status 09/05/18 17:50 Blood Blood Culture - Preliminary NO GROWTH AFTER 24 HOURS Resulted 09/05/18 17:50 Blood Blood Culture - Preliminary NO GROWTH AFTER 24 HOURS Resulted 09/05/18 17:50 Nasal Nares Influenza Types A,B Antigen (ARJUN) - Final Complete 09/05/18 18:55 Rectum Received Current Medications Medications (Trade) Dose Ordered Sig/Cassy Route PRN Reason Start Time Stop Time Status Last Admin Dose Admin Acetaminophen (Tylenol) 650 mg Q6H PRN ORAL PAIN/TEMP > 101 09/05/18 23:45 10/05/18 23:44 Atorvastatin Calcium (Lipitor) 10 mg BEDTIME ORAL 09/06/18 21:00 10/06/18 20:59 09/06/18 21:08 Clonidine HCl (Catapres Tab) 0.1 mg Q4H PRN ORAL bp over 160 syst 09/06/18 11:00 10/06/18 10:59 09/06/18 17:40 Docusate Sodium (Colace) 100 mg TID ORAL 09/06/18 18:00 10/06/18 08:59 09/06/18 17:37 Ergocalciferol (Drisdol) 50,000 intlu ONCE A WEEK ORAL 09/08/18 09:00 10/08/18 08:59 Heparin Sodium (Porcine) (Heparin 5000 units/ml) 5,000 units EVERY 12 HOURS SUBQ 09/06/18 09:00 10/06/18 08:59 09/06/18 21:09 Hydralazine HCl (Apresoline) 25 mg Q6HR ORAL 09/06/18 18:00 10/06/18 17:59 09/07/18 04:59 Losartan Potassium (Cozaar) 50 mg BID ORAL 09/06/18 09:00 10/06/18 08:59 09/06/18 17:38 Metoprolol Tartrate (Lopressor) 50 mg Q12HR ORAL 09/06/18 09:00 10/06/18 08:59 09/06/18 21:08 Pantoprazole (Protonix) 40 mg Q12HR ORAL 09/06/18 21:00 10/06/18 08:59 09/06/18 21:08 Piperacillin Sod/ Tazobactam Sod 3.375 gm/Dextrose 110 ml @ 27.5 mls/hr EVERY 8 HOURS IVPB 09/06/18 15:00 09/11/18 14:59 09/07/18 04:58 Promethazine HCl/ Codeine (Phenergan with Codeine) 10 ml TID PRN ORAL For Cough 09/06/18 23:45 10/06/18 23:44 09/07/18 04:35 Vancomycin HCl (Vanco rx to dose) 1 ea DAILY PRN MISC Per rx protocol 09/06/18 14:00 10/06/18 13:59 Vancomycin HCl 500 mg/Dextrose 110 ml @ 110 mls/hr Q24H IVPB 09/07/18 18:00 09/12/18 17:59 Shelley Leung NP Sep 07, 2018 07:37
[2018-09-07 08:00] VITALS: BP 154/70
--- NOTE | 2018-09-07 08:00 | NUR ---
NURSE NOTES: Pt asleep in bed, breathing easily on 2 lpm nasal cannula, awoke to soft voice, denies SOB and denies pain at this time. Vital signs stable with SR at 96 on monitor. Commode at bedside. Bed left in low position, exit alarm set, side rails up x 3 and call light left near pt's hand.
[2018-09-07] MEDS: Metoprolol Tartrate 50mg tab ORAL SCH ×2 (09:22→21:33)
[2018-09-07] MEDS: Docusate 100mg cap ORAL SCH ×3 (09:22→18:00)
[2018-09-07] MEDS: Losartan 50mg tab ORAL SCH ×2 (09:22→18:00)
[2018-09-07] MEDS: Heparin 5000 units/ml inj SUBQ SCH ×2 (09:26→21:45)
[2018-09-07 09:36] LABS: ANION GAP 8 mmol/L (5-15); BLOOD UREA NITROGEN 13 mg/dL (7-18); CALCIUM 8.6 MG/DL (8.5-10.1); CARBON DIOXIDE 27 MMOL/L (21-32); CHLORIDE 95 MMOL/L (98-107); CREATININE 0.8 MG/DL (0.55-1.30); POTASSIUM 3.3 MMOL/L (3.5-5.1); SODIUM 130 MMOL/L (136-145)
[2018-09-07 09:44] LABS: ALANINE AMINOTRANSFERASE 109 U/L (12-78); ALBUMIN 2.1 G/DL (3.4-5.0); ALBUMIN/GLOBULIN RATIO 0.6 (1.0-2.7); ALKALINE PHOSPHATASE 113 U/L (46-116); ASPARTATE AMINO TRANSFERASE 81 U/L (15-37); BILIRUBIN,TOTAL 0.6 MG/DL (0.2-1.0); PHOSPHORUS 3.3 MG/DL (2.5-4.9)
[2018-09-07] MEDS ORDERED: Albuterol/Ipratropium 3ml neb HHN PRN (10:45)
[2018-09-07 12:00] VITALS: BP 153/76
--- NOTE | 2018-09-07 13:03 | General Progress Note ---
Assessment/Plan Problem List: (1) Aspiration pneumonia ICD Codes: J69.0 - Pneumonitis due to inhalation of food and vomit SNOMED: 332782290 (2) HTN (hypertension) ICD Codes: I10 - Essential (primary) hypertension SNOMED: 76302516 (3) Pubic bone fracture ICD Codes: S32.509A - Unspecified fracture of unspecified pubis, initial encounter for closed fracture SNOMED: 21567924 (4) UTI (urinary tract infection) ICD Codes: N39.0 - Urinary tract infection, site not specified SNOMED: 11556207 (5) Protein-calorie malnutrition, severe ICD Codes: E43 - Unspecified severe protein-calorie malnutrition SNOMED: 751453264, 294820438, 349774840 (6) Urinary tract infection ICD Codes: N39.0 - Urinary tract infection, site not specified SNOMED: 01379596 Status: stable Status Narrative Sepsis , asp PNA severe protein calorie malnutrition possible UTI elevated LFT s/p pubic bone fracture elevated pro BNP HTN with prior HTN urgency Assessment/Plan Zosyn Vanco per ID Pulm Toilet Aim to correct Low Na , 3% and Lasix St eval Subjective ROS Limited/Unobtainable: No Constitutional: Reports: malaise, weakness Allergies: Coded Allergies: LATEX (Verified Allergy, Unknown, 02/11/09) MELOXICAM (Verified Allergy, Unknown, 02/11/09) PREDNISONE (Verified Allergy, Unknown, 02/11/09) Objective Last 24 Hour Vital Signs Date Time Temp Pulse Resp B/P (MAP) Pulse Ox O2 Delivery O2 Flow Rate FiO2 09/07/18 12:14 77 18 95 Nasal Cannula 2.0 28 09/07/18 12:14 77 18 95 Nasal Cannula 2.0 28 09/07/18 11:08 158/81 09/07/18 09:22 74 158/81 09/07/18 09:22 158/81 09/07/18 09:00 86 09/07/18 09:00 Nasal Cannula 2.0 09/07/18 06:45 74 18 94 Nasal Cannula 2.0 28 09/07/18 06:45 74 18 94 Nasal Cannula 2.0 28 09/07/18 04:59 158/81 09/07/18 04:00 82 09/07/18 03:58 98.7 89 158/81 (106) 92 09/07/18 00:00 87 09/06/18 23:41 140/84 09/06/18 23:31 98.3 92 140/84 (102) 09/06/18 21:08 93 157/90 09/06/18 21:00 Nasal Cannula 2.0 09/06/18 20:31 98.5 93 18 157/90 (112) 09/06/18 20:00 86 09/06/18 18:05 163/81 09/06/18 17:40 163/81 09/06/18 17:38 163/81 09/06/18 16:00 96 09/06/18 16:00 97.5 82 18 101/52 (68) 95 Intake and Output 09/06/18 09/07/18 19:00 07:00 Intake Total 120 ml Balance 120 ml Intake Oral 120 ml # Voids 2 2 Laboratory Tests 09/07/18 09:15: Sodium Level 130L, Potassium Level 3.3L, Chloride Level 95L, Carbon Dioxide Level 27, Anion Gap 8, Blood Urea Nitrogen 13, Creatinine 0.8, Estimat Glomerular Filtration Rate , Glucose Level 105, Calcium Level 8.6, Phosphorus Level 3.3, Total Bilirubin 0.6, Aspartate Amino Transf (AST/SGOT) 81H, Alanine Aminotransferase (ALT/SGPT) 109H, Alkaline Phosphatase 113, Total Protein 5.9L, Albumin 2.1L, Globulin 3.8, Albumin/Globulin Ratio 0.6L 09/07/18 10:00: Urine Osmolality 283L Height (Feet): 5 Height (Inches): 4.00 Weight (Pounds): 110 General Appearance: no apparent distress, lethargic Neck: limited range of motion Cardiovascular: normal rate Respiratory/Chest: decreased breath sounds Abdomen: distended Max Randolph MD Sep 07, 2018 13:03
--- NOTE | 2018-09-07 14:04 | Infectious Diseases Prog Note ---
Assessment/Plan Problems: (1) Aspiration pneumonia Assessment & Plan: with right side infrahilar infiltrates , complicated with pleural effusion , continue zosyn empiric coverage pending sputum culture if she produces any , aspiration precaution and keep HOB > 30 degree (2) UTI (urinary tract infection) Assessment & Plan: already on zosyn, pending urine culture (3) Sepsis Assessment & Plan: due to the above , continue vancomycin and zosyn empirically pending cultures, will deescalate antibiotics based on cultures result (4) FTT (failure to thrive) in adult Assessment & Plan: will screen for syphilis and HIV (5) Fever Assessment & Plan: suspect due to the above, continue wide spectrum antibiotics and tylenol as needed Subjective Constitutional: Reports: fatigue HEENT: Reports: no symptoms Respiratory: Reports: productive cough Breasts: Reports: no symptoms Cardiovascular: Reports: no symptoms Gastrointestinal/Abdominal: Reports: no symptoms Genitourinary: Reports: no symptoms Neurologic: Reports: weakness, confusion Psychiatric: Reports: no symptoms Skin: Reports: no symptoms Endocrine: Reports: no symptoms Hematologic: Reports: no symptoms Musculoskeletal: Reports: no symptoms Allergies: Coded Allergies: LATEX (Verified Allergy, Unknown, 02/11/09) MELOXICAM (Verified Allergy, Unknown, 02/11/09) PREDNISONE (Verified Allergy, Unknown, 02/11/09) Objective Vital Signs Last 24 Hour Vital Signs Date Time Temp Pulse Resp B/P (MAP) Pulse Ox O2 Delivery O2 Flow Rate FiO2 09/07/18 12:14 77 18 95 Nasal Cannula 2.0 28 09/07/18 12:14 77 18 95 Nasal Cannula 2.0 28 09/07/18 11:08 158/81 09/07/18 09:22 74 158/81 09/07/18 09:22 158/81 09/07/18 09:00 86 09/07/18 09:00 Nasal Cannula 2.0 09/07/18 06:45 74 18 94 Nasal Cannula 2.0 28 09/07/18 06:45 74 18 94 Nasal Cannula 2.0 09/07/18 04:59 158/81 09/07/18 04:00 82 09/07/18 03:58 98.7 89 158/81 (106) 92 09/07/18 00:00 87 09/06/18 23:41 140/84 09/06/18 23:31 98.3 92 140/84 (102) 09/06/18 21:08 93 157/90 09/06/18 21:00 Nasal Cannula 2.0 09/06/18 20:31 98.5 93 18 157/90 (112) 09/06/18 20:00 86 09/06/18 18:05 163/81 09/06/18 17:40 163/81 09/06/18 17:38 163/81 09/06/18 16:00 96 09/06/18 16:00 97.5 82 18 101/52 (68) 95 Height (Feet): 5 Height (Inches): 4.00 Weight (Pounds): 110 General Appearance: no acute distress, cachetic HEENT: normocephalic, atraumatic, anicteric, mucous membranes moist, PERRL, pharynx normal, supple, no JVD Respiratory/Chest: chest wall non-tender, no respiratory distress, no accessory muscle use, decreased breath sounds, crackles/rales Cardiovascular: normal peripheral pulses, normal rate, regular rhythm, no gallop/murmur, no JVD Abdomen: normal bowel sounds, soft, non tender, no organomegaly, non distended , no mass, no scars Extremities: no cyanosis, no clubbing Skin: no rash, no lesions, no ulcers Neurologic/Psychiatric: alert, oriented x 3, responsive Lymphatic: no neck adenopathy, no groin adenopathy Musculoskeletal: normal muscle bulk, no effusion Microbiology Date/Time Source Procedure Growth Status 09/05/18 17:50 Blood Blood Culture - Preliminary NO GROWTH AFTER 24 HOURS Resulted 09/05/18 17:50 Blood Blood Culture - Preliminary NO GROWTH AFTER 24 HOURS Resulted 09/05/18 17:50 Nasal Nares Influenza Types A,B Antigen (ARJUN) - Final Complete 09/05/18 18:55 Rectum Received Laboratory Tests Test 09/07/18 09:15 09/07/18 10:00 Sodium Level 130 MMOL/L (136-145) L Potassium Level 3.3 MMOL/L (3.5-5.1) L Chloride Level 95 MMOL/L (98-107) L Carbon Dioxide Level 27 MMOL/L (21-32) Anion Gap 8 mmol/L (5-15) Blood Urea Nitrogen 13 mg/dL (7-18) Creatinine 0.8 MG/DL (0.55-1.30) Estimat Glomerular Filtration Rate mL/min (>60) Glucose Level 105 MG/DL (74-106) Calcium Level 8.6 MG/DL (8.5-10.1) Phosphorus Level 3.3 MG/DL (2.5-4.9) Total Bilirubin 0.6 MG/DL (0.2-1.0) Aspartate Amino Transf (AST/SGOT) 81 U/L (15-37) H Alanine Aminotransferase (ALT/SGPT) 109 U/L (12-78) H Alkaline Phosphatase 113 U/L (46-116) Total Protein 5.9 G/DL (6.4-8.2) L Albumin 2.1 G/DL (3.4-5.0) L Globulin 3.8 g/dL Albumin/Globulin Ratio 0.6 (1.0-2.7) L Urine Osmolality 283 mOsm/kg (429-449) L Current Medications Medications (Trade) Dose Ordered Sig/Cassy Route PRN Reason Start Time Stop Time Status Last Admin Dose Admin Acetaminophen (Tylenol) 650 mg Q6H PRN ORAL PAIN/TEMP > 101 09/05/18 23:45 10/05/18 23:44 Albuterol/ Ipratropium (Albuterol/ Ipratropium) 3 ml Q4H PRN HHN sob 09/07/18 10:45 09/12/18 10:44 Atorvastatin Calcium (Lipitor) 10 mg BEDTIME ORAL 09/06/18 21:00 10/06/18 20:59 09/06/18 21:08 Clonidine HCl (Catapres Tab) 0.1 mg Q4H PRN ORAL bp over 160 syst 09/06/18 11:00 10/06/18 10:59 09/06/18 17:40 Docusate Sodium (Colace) 100 mg TID ORAL 09/06/18 18:00 10/06/18 08:59 09/07/18 11:08 Ergocalciferol (Drisdol) 50,000 intlu ONCE A WEEK ORAL 09/08/18 09:00 10/08/18 08:59 Furosemide (Lasix) 20 mg EVERY 8 HOURS IV 09/07/18 14:00 10/07/18 13:59 Heparin Sodium (Porcine) (Heparin 5000 units/ml) 5,000 units EVERY 12 HOURS SUBQ 09/06/18 09:00 10/06/18 08:59 09/07/18 09:26 Hydralazine HCl (Apresoline) 50 mg Q8HR ORAL 09/07/18 22:00 10/06/18 17:59 Losartan Potassium (Cozaar) 50 mg BID ORAL 09/06/18 09:00 10/06/18 08:59 09/07/18 09:22 Metoprolol Tartrate (Lopressor) 50 mg Q12HR ORAL 09/06/18 09:00 10/06/18 08:59 09/07/18 09:22 Pantoprazole (Protonix) 40 mg Q12HR ORAL 09/06/18 21:00 10/06/18 08:59 09/07/18 09:22 Piperacillin Sod/ Tazobactam Sod 3.375 gm/Dextrose 110 ml @ 27.5 mls/hr EVERY 8 HOURS IVPB 09/06/18 15:00 09/11/18 14:59 09/07/18 04:58 Potassium Chloride (K-Dur) 40 meq TWICE A DAY ORAL 09/07/18 13:15 10/07/18 13:14 Promethazine HCl/ Codeine (Phenergan with Codeine) 10 ml TID PRN ORAL For Cough 09/06/18 23:45 10/06/18 23:44 09/07/18 04:35 Sodium Chloride 500 ml @ 30 mls/hr ONCE ONCE IV 09/07/18 15:00 09/08/18 07:39 Vancomycin HCl (Vanco rx to dose) 1 ea DAILY PRN MISC Per rx protocol 09/06/18 14:00 10/06/18 13:59 Vancomycin HCl 500 mg/Dextrose 110 ml @ 110 mls/hr Q24H IVPB 09/07/18 18:00 09/12/18 17:59 Carlie Parikh M.D. Sep 07, 2018 14:04
[2018-09-07] MEDS ORDERED: NaCl 3% 500ml 500 ML IV ONE (15:00)
[2018-09-07 16:00] VITALS: BP 151/83
[2018-09-07] MEDS ORDERED: Vancomycin 500mg/D5W 110ml IVPB SCH ×2 (18:00)
[2018-09-07 20:00] VITALS: BP 182/103
[2018-09-07] MEDS: HydrALAZINE 50mg tab ORAL SCH (21:32)
[2018-09-08] VITALS: BP 149/83
[2018-09-08 04:00] VITALS: BP 134/71
[2018-09-08] MEDS: Piperacillin/Tazobactam 3.375 GM in D5W 110 ML IVPB SCH ×3 (05:56→21:45)
[2018-09-08] MEDS: HydrALAZINE 50mg tab ORAL SCH (05:57)
--- NOTE | 2018-09-08 07:04 | NUR ---
HAND-OFF: Report given to ALEXANDER Marroquin. Pt stable.
[2018-09-08 07:06] LABS: APPEARANCE,URINE CLEAR; BILIRUBIN, URINE NEGATIVE (NEGATIVE); COLOR,URINE PALE YELLOW; GLUCOSE, URINE (UA) NEGATIVE (NEGATIVE); KETONES,URINE NEGATIVE (NEGATIVE); LEUKOCYTE ESTERASE ,URINE 1+ (NEGATIVE); NITRITE,URINE NEGATIVE (NEGATIVE); PH,URINE 7 (4.5-8.0); PROTEIN,URINE NEGATIVE (NEGATIVE); UROBILINOGEN,URINE NORMAL MG/DL (0.0-1.0)
--- NOTE | 2018-09-08 07:46 | NUR ---
NURSE NOTES: Pt awake/alert in bed, breathing easily on 2 lpm nasal cannula, denies SOB and denies pain at this time. Vital signs stable with SR at 84 on monitor. Commode at bedside. Bed left in low position, exit alarm set, side rails up x 3 and call light left near pt's hand. Addendum: 09/08/18 at 0750 by NINA CLARK RN IV access left forearm with 3% Saline running at 30 ml/hr.
[2018-09-08 07:47] LABS: BASOPHILS % (AUTO) 0.8 % (0.0-2.0); EOSINOPHILS % (AUTO) 4.6 % (0.0-3.0); HEMATOCRIT 40.9 % (37.0-47.0); HEMOGLOBIN 14.3 G/DL (12.0-16.0); LYMPHOCYTES % (AUTO) 7.2 % (20.0-45.0); MEAN CORPUSCULAR VOLUME 93 FL (80-99); MONOCYTES % (AUTO) 8.7 % (1.0-10.0); NEUTROPHILS % (AUTO) 78.7 % (45.0-75.0); PLATELET COUNT 795 K/UL (150-450); RED CELL DISTRIBUTION WIDTH 10.4 % (11.6-14.8)
[2018-09-08 08:00] VITALS: BP 163/86
[2018-09-08 08:04] LABS: ALANINE AMINOTRANSFERASE 143 U/L (12-78); ALBUMIN 2.6 G/DL (3.4-5.0); ALBUMIN/GLOBULIN RATIO 0.6 (1.0-2.7); ALKALINE PHOSPHATASE 135 U/L (46-116); ANION GAP 11 mmol/L (5-15); ASPARTATE AMINO TRANSFERASE 113 U/L (15-37); BILIRUBIN,TOTAL 0.6 MG/DL (0.2-1.0); BLOOD UREA NITROGEN 13 mg/dL (7-18); CALCIUM 9.1 MG/DL (8.5-10.1); CARBON DIOXIDE 27 MMOL/L (21-32); CHLORIDE 99 MMOL/L (98-107); POTASSIUM 2.9 MMOL/L (3.5-5.1); SODIUM 137 MMOL/L (136-145)
--- NOTE | 2018-09-08 08:26 | Pulmonology Progress Note ---
Assessment/Plan Assessment/Plan ASSESSMENT Sepsis asp PNA severe protein calorie malnutrition possible UTI elevated LFT s/p pubic bone fracture elevated pro BNP HTN with prior HTN urgency e/lyte imbalance ( hypo Na, hypo K) PLAN OF CARE tele O2 titrate to keep pulse ox above 90% Pulmonary toilet with HHN and CPT fup with CXR in am Antitussive prn Antibiotic as per ID blood cx prel negative rapid influenza screen test negative urine cx pending RPR nonreactive HIV nonreactive swallow eval aspiration precaution s/p IV fluids consider ECHO as per PMD description hyponatremia workup per PMD DVT ,GI prophylaxis BP management with multiple anti HTN renal ultrasound no hydro monitor renal parameters and electrolytes, correct electrolytes as needed , avoid nephrotoxics; replace K today , Mg stable, Na stabilized trend LFT- trend up this am bowel regimen dietary eval case discussed and evaluated by supervising physician Subjective Allergies: Coded Allergies: LATEX (Verified Allergy, Unknown, 02/11/09) MELOXICAM (Verified Allergy, Unknown, 02/11/09) PREDNISONE (Verified Allergy, Unknown, 02/11/09) Subjective mild leukocytosis this am , afebrile, pulse oximetry stable on RA Objective Last 24 Hour Vital Signs Date Time Temp Pulse Resp B/P (MAP) Pulse Ox O2 Delivery O2 Flow Rate FiO2 09/08/18 07:43 77 18 96 Room Air 21 09/08/18 07:35 73 18 95 Room Air 21 09/08/18 05:57 149/83 09/08/18 04:00 98.7 84 17 134/71 (92) 92 09/08/18 04:00 80 09/08/18 03:43 Nasal Cannula 2.0 28 09/08/18 03:43 Nasal Cannula 2.0 28 09/08/18 00:00 98.9 84 17 149/83 (105) 93 09/08/18 00:00 79 09/07/18 23:15 75 18 96 Nasal Cannula 2.0 28 09/07/18 23:14 74 18 95 Nasal Cannula 2.0 28 09/07/18 21:33 103 182/103 09/07/18 21:32 182/103 09/07/18 21:00 Nasal Cannula 2.0 09/07/18 20:00 98.8 103 18 182/103 (129) 94 09/07/18 20:00 99 3/9/19 19:45 69 18 96 Nasal Cannula 2.0 28 09/07/18 19:45 76 18 93 Room Air 21 09/07/18 18:00 153/76 09/07/18 16:00 98.7 84 20 151/83 (105) 94 09/07/18 16:00 95 09/07/18 15:38 77 18 95 Nasal Cannula 2.0 28 09/07/18 15:38 71 18 95 Nasal Cannula 2.0 28 09/07/18 12:14 77 18 95 Nasal Cannula 2.0 28 09/07/18 12:14 77 18 95 Nasal Cannula 2.0 28 09/07/18 12:00 98.1 95 23 153/76 (101) 91 09/07/18 12:00 85 09/07/18 11:08 158/81 09/07/18 09:22 74 158/81 09/07/18 09:22 158/81 09/07/18 09:00 86 09/07/18 09:00 Nasal Cannula 2.0 Intake and Output 09/07/18 09/08/18 18:59 06:59 # Voids 2 2 Objective General Appearance: no acute distress, cachetic, elderly frail female awake, responsive, weak HEENT: normocephalic, atraumatic, anicteric, mucous membranes moist Respiratory/Chest: no respiratory distress, no accessory muscle use, decreased breath sounds, Cardiovascular: normal rate, regular rhythm - on tele SR Abdomen: normal bowel sounds, soft, non tender, non distended Extremities: no edema, pedal pulses normal Neurologic/Psychiatric: abnormal gait, alert, responsive Musculoskeletal: atrophy - BLE Microbiology Date/Time Source Procedure Growth Status 09/05/18 17:50 Blood Blood Culture - Preliminary NO GROWTH AFTER 48 HOURS Resulted 09/05/18 17:50 Blood Blood Culture - Preliminary NO GROWTH AFTER 48 HOURS Resulted 09/05/18 17:50 Nasal Nares Influenza Types A,B Antigen (ARJUN) - Final Complete 09/05/18 18:55 Rectum - Final NO CARBAPENEM-RESISTANT ENTEROBACTERI... Complete 09/05/18 18:55 Rectum VRE Culture - Final NO VANCOMYCIN RESISTANT ENTEROCOCCUS ... Complete Laboratory Tests 09/07/18 09:15: Sodium Level 130L, Potassium Level 3.3L, Chloride Level 95L, Carbon Dioxide Level 27, Anion Gap 8, Blood Urea Nitrogen 13, Creatinine 0.8, Estimat Glomerular Filtration Rate , Glucose Level 105, Calcium Level 8.6, Phosphorus Level 3.3, Total Bilirubin 0.6, Aspartate Amino Transf (AST/SGOT) 81H, Alanine Aminotransferase (ALT/SGPT) 109H, Alkaline Phosphatase 113, Total Protein 5.9L, Albumin 2.1L, Globulin 3.8, Albumin/Globulin Ratio 0.6L 09/07/18 10:00: Urine Color Pale yellow, Urine Appearance Clear, Urine pH 7, Urine Specific [place] 1.005, Urine Protein Negative, Urine Glucose (UA) Negative, Urine Ketones Negative, Urine Blood Negative, Urine Nitrite Negative, Urine Bilirubin Negative, Urine Urobilinogen Normal, Urine Leukocyte Esterase 1+H, Urine RBC 0-2 , Urine WBC 0-2, Urine Squamous Epithelial Cells Occasional, Urine Bacteria Occasional, Urine Osmolality 283L, Urine Random Sodium 26 09/08/18 06:24: Sodium Level 137, Potassium Level 2.9L, Chloride Level 99, Carbon Dioxide Level 27, Anion Gap 11, Blood Urea Nitrogen 13, Creatinine 1.0, Estimat Glomerular Filtration Rate , Glucose Level 120H, Calcium Level 9.1, Total Bilirubin 0.6, Aspartate Amino Transf (AST/SGOT) 113H, Alanine Aminotransferase (ALT/SGPT) 143H , Alkaline Phosphatase 135H, Total Protein 6.9, Albumin 2.6L, Globulin 4.3, Albumin/Globulin Ratio 0.6L, White Blood Count 11.0H, Red Blood Count 4.40, Hemoglobin 14.3, Hematocrit 40.9, Mean Corpuscular Volume 93, Mean Corpuscular Hemoglobin 32.4H, Mean Corpuscular Hemoglobin Concent 34.9, Red Cell Distribution Width 10.4L, Platelet Count 795H, Mean Platelet Volume 5.2L, Neutrophils (%) (Auto) 78.7H, Lymphocytes (%) (Auto) 7.2L, Monocytes (%) (Auto) 8.7, Eosinophils (%) (Auto) 4.6H, Basophils (%) (Auto) 0.8, Magnesium Level 2.0 Current Medications Medications (Trade) Dose Ordered Sig/Cassy Route PRN Reason Start Time Stop Time Status Last Admin Dose Admin Acetaminophen (Tylenol) 650 mg Q6H PRN ORAL PAIN/TEMP > 101 09/05/18 23:45 46/19 23:44 Albuterol/ Ipratropium (Albuterol/ Ipratropium) 3 ml Q4H PRN HHN sob 09/07/18 10:45 09/12/18 10:44 Atorvastatin Calcium (Lipitor) 10 mg BEDTIME ORAL 09/06/18 21:00 10/06/18 20:59 09/07/18 21:33 Clonidine HCl (Catapres Tab) 0.1 mg Q4H PRN ORAL bp over 160 syst 09/06/18 11:00 10/06/18 10:59 09/06/18 17:40 Docusate Sodium (Colace) 100 mg TID ORAL 09/06/18 18:00 10/06/18 08:59 09/07/18 18:00 Ergocalciferol (Drisdol) 50,000 intlu ONCE A WEEK ORAL 09/08/18 09:00 10/08/18 08:59 Furosemide (Lasix) 20 mg EVERY 8 HOURS IV 09/07/18 14:00 10/07/18 13:59 09/08/18 05:56 Heparin Sodium (Porcine) (Heparin 5000 units/ml) 5,000 units EVERY 12 HOURS SUBQ 09/06/18 09:00 10/06/18 08:59 09/07/18 21:45 Hydralazine HCl (Apresoline) 50 mg Q8HR ORAL 09/07/18 22:00 10/06/18 17:59 09/08/18 05:57 Losartan Potassium (Cozaar) 50 mg BID ORAL 09/06/18 09:00 10/06/18 08:59 09/07/18 18:00 Metoprolol Tartrate (Lopressor) 50 mg Q12HR ORAL 09/06/18 09:00 10/06/18 08:59 09/07/18 21:33 Pantoprazole (Protonix) 40 mg Q12HR ORAL 09/06/18 21:00 10/06/18 08:59 09/07/18 21:32 Piperacillin Sod/ Tazobactam Sod 3.375 gm/Dextrose 110 ml @ 27.5 mls/hr EVERY 8 HOURS IVPB 09/06/18 15:00 09/11/18 14:59 09/08/18 05:56 Potassium Chloride (K-Dur) 40 meq TWICE A DAY ORAL 09/07/18 13:15 10/07/18 13:14 09/07/18 18:00 Promethazine HCl/ Codeine (Phenergan with Codeine) 10 ml TID PRN ORAL For Cough 09/06/18 23:45 10/06/18 23:44 09/07/18 04:35 Vancomycin HCl (Vanco rx to dose) 1 ea DAILY PRN MISC Per rx protocol 09/06/18 14:00 10/06/18 13:59 Vancomycin HCl 500 mg/Dextrose 110 ml @ 110 mls/hr Q24H IVPB 09/07/18 18:00 09/12/18 17:59 09/07/18 18:00 Shelley Leung NP Sep 08, 2018 08:26
[2018-09-08] MEDS ORDERED: Sodium Chloride for KCL Premix X 4hrs IV SCH (09:00)
[2018-09-08] MEDS ORDERED: Vitamin D 50,000 units cap ORAL SCH (09:00)
[2018-09-08] MEDS: Heparin 5000 units/ml inj SUBQ SCH ×2 (09:00→21:45)
[2018-09-08] MEDS: Losartan 50mg tab ORAL SCH ×2 (09:59→17:34)
[2018-09-08] MEDS: Metoprolol Tartrate 50mg tab ORAL SCH (09:59)
[2018-09-08] MEDS: Docusate 100mg cap ORAL SCH ×3 (10:00→17:37)
[2018-09-08 12:00] VITALS: BP 155/86
--- NOTE | 2018-09-08 12:15 | General Progress Note ---
Assessment/Plan Problem List: (1) Aspiration pneumonia ICD Codes: J69.0 - Pneumonitis due to inhalation of food and vomit SNOMED: 786480717 (2) HTN (hypertension) ICD Codes: I10 - Essential (primary) hypertension SNOMED: 60793738 (3) Pubic bone fracture ICD Codes: S32.509A - Unspecified fracture of unspecified pubis, initial encounter for closed fracture SNOMED: 51268547 (4) UTI (urinary tract infection) ICD Codes: N39.0 - Urinary tract infection, site not specified SNOMED: 61142331 (5) Protein-calorie malnutrition, severe ICD Codes: E43 - Unspecified severe protein-calorie malnutrition SNOMED: 487783036, 528167791, 996539019 (6) Urinary tract infection ICD Codes: N39.0 - Urinary tract infection, site not specified SNOMED: 47495823 (7) Hyponatremia ICD Codes: E87.1 - Hypo-osmolality and hyponatremia SNOMED: 48095853 Status: stable Assessment/Plan Pt eval increase lopressor and Hydralazine K supplement watch lytes stop lipitor as LFTs rising Zosyn Vanco per ID Pulm Toilet Subjective ROS Limited/Unobtainable: No Constitutional: Reports: malaise, other - feels stronger- Sistaer and neice in Rm from [facility] Allergies: Coded Allergies: LATEX (Verified Allergy, Unknown, 02/11/09) MELOXICAM (Verified Allergy, Unknown, 02/11/09) PREDNISONE (Verified Allergy, Unknown, 02/11/09) Objective Last 24 Hour Vital Signs Date Time Temp Pulse Resp B/P (MAP) Pulse Ox O2 Delivery O2 Flow Rate FiO2 09/08/18 11:36 75 18 95 Room Air 21 09/08/18 11:29 75 18 95 Room Air 21 09/08/18 09:59 77 149/83 09/08/18 09:59 149/83 09/08/18 09:00 Nasal Cannula 2.0 09/08/18 08:00 92 09/08/18 08:00 98.4 92 20 163/86 (111) 92 09/08/18 07:43 77 18 96 Room Air 21 09/08/18 07:35 73 18 95 Room Air 21 09/08/18 05:57 149/83 09/08/18 04:00 98.7 84 17 134/71 (92) 92 09/08/18 04:00 80 09/08/18 03:43 Nasal Cannula 2.0 28 09/08/18 03:43 Nasal Cannula 2.0 28 09/08/18 00:00 98.9 84 17 149/83 (105) 93 09/08/18 00:00 79 09/07/18 23:15 75 18 96 Nasal Cannula 2.0 28 09/07/18 23:14 74 18 95 Nasal Cannula 2.0 28 09/07/18 21:33 103 182/103 09/07/18 21:32 182/103 09/07/18 21:00 Nasal Cannula 2.0 09/07/18 20:00 98.8 103 18 182/103 (129) 94 09/07/18 20:00 99 09/07/18 19:45 69 18 96 Nasal Cannula 2.0 28 09/07/18 19:45 76 18 93 Room Air 21 09/07/18 18:00 153/76 09/07/18 16:00 98.7 84 20 151/83 (105) 94 09/07/18 16:00 95 09/07/18 15:38 77 18 95 Nasal Cannula 2.0 28 09/07/18 15:38 71 18 95 Nasal Cannula 2.0 28 09/07/18 12:14 77 18 95 Nasal Cannula 2.0 28 09/07/18 12:14 77 18 95 Nasal Cannula 2.0 28 Intake and Output 09/07/18 09/08/18 19:00 07:00 # Voids 2 2 Laboratory Tests 09/08/18 06:24: White Blood Count 11.0H, Red Blood Count 4.40, Hemoglobin 14.3, Hematocrit 40.9 , Mean Corpuscular Volume 93, Mean Corpuscular Hemoglobin 32.4H, Mean Corpuscular Hemoglobin Concent 34.9, Red Cell Distribution Width 10.4L, Platelet Count 795H, Mean Platelet Volume 5.2L, Neutrophils (%) (Auto) 78.7H, Lymphocytes (%) (Auto) 7.2L, Monocytes (%) (Auto) 8.7, Eosinophils (%) (Auto) 4.6H, Basophils (%) (Auto) 0.8, Sodium Level 137, Potassium Level 2.9L, Chloride Level 99, Carbon Dioxide Level 27, Anion Gap 11, Blood Urea Nitrogen 13 , Creatinine 1.0, Estimat Glomerular Filtration Rate , Glucose Level 120H, Calcium Level 9.1, Phosphorus Level 3.4, Magnesium Level 2.0, Total Bilirubin 0.6, Aspartate Amino Transf (AST/SGOT) 113H, Alanine Aminotransferase (ALT/SGPT ) 143H, Alkaline Phosphatase 135H, Total Protein 6.9, Albumin 2.6L, Globulin 4.3 , Albumin/Globulin Ratio 0.6L Height (Feet): 5 Height (Inches): 4.00 Weight (Pounds): 110 General Appearance: no apparent distress, lethargic Cardiovascular: normal rate Respiratory/Chest: decreased breath sounds Max Randolph MD Sep 08, 2018 12:15
--- NOTE | 2018-09-08 14:23 | NUR ---
PT Note Acknowledged order for PT eval but was advised by RN to hold off on PT today due to abnormal labs.
[2018-09-08] MEDS: HydrALAZINE 25mg tab ORAL SCH ×2 (14:24→21:43)
[2018-09-08 16:00] VITALS: BP 153/86
[2018-09-08] MEDS: Promethazine/Codeine 5ml UD ORAL PRN (16:11)
[2018-09-08] MEDS ORDERED: Sodium Chloride for KCL Premix X 1hr IV SCH (17:30)
--- NOTE | 2018-09-08 17:30 | Infectious Diseases Prog Note ---
Assessment/Plan Problems: (1) Aspiration pneumonia Assessment & Plan: with right side infrahilar infiltrates , complicated with pleural effusion , continue zosyn empiric coverage pending sputum culture if she produces any , aspiration precaution and keep HOB > 30 degree . (2) UTI (urinary tract infection) Assessment & Plan: already on zosyn, pending urine culture (3) Sepsis Assessment & Plan: due to the above , with negative blood culture x2 will stop vancomycin. continue zosyn empirically to cover pneumonia (4) FTT (failure to thrive) in adult Assessment & Plan: screening for syphilis and HIV is negative (5) Fever Assessment & Plan: suspect due to the above, continue wide spectrum antibiotics and tylenol as needed Subjective Constitutional: Reports: no symptoms HEENT: Reports: no symptoms, congestion Respiratory: Reports: productive cough Breasts: Reports: no symptoms Cardiovascular: Reports: no symptoms Gastrointestinal/Abdominal: Reports: no symptoms Genitourinary: Reports: no symptoms Neurologic: Reports: no symptoms Psychiatric: Reports: no symptoms Skin: Reports: no symptoms Endocrine: Reports: no symptoms Hematologic: Reports: no symptoms Musculoskeletal: Reports: no symptoms Allergies: Coded Allergies: LATEX (Verified Allergy, Unknown, 02/11/09) MELOXICAM (Verified Allergy, Unknown, 02/11/09) PREDNISONE (Verified Allergy, Unknown, 02/11/09) Subjective she is more awake and comfortable, no skin rash , afebrile Objective Vital Signs Last 24 Hour Vital Signs Date Time Temp Pulse Resp B/P (MAP) Pulse Ox O2 Delivery O2 Flow Rate FiO2 09/08/18 16:00 95 09/08/18 16:00 98.7 95 23 153/86 (108) 94 09/08/18 15:20 78 18 96 Room Air 21 09/08/18 15:20 77 18 95 Room Air 21 09/08/18 14:24 149/83 09/08/18 12:00 92 09/08/18 12:00 97.5 92 20 155/86 (109) 92 09/08/18 11:36 75 18 95 Room Air 21 09/08/18 11:29 75 18 95 Room Air 21 09/08/18 09:59 77 149/83 09/08/18 09:59 149/83 09/08/18 09:00 Nasal Cannula 2.0 09/08/18 08:00 92 09/08/18 08:00 98.4 92 20 163/86 (111) 92 09/08/18 07:43 77 18 96 Room Air 21 09/08/18 07:35 73 18 95 Room Air 21 09/08/18 05:57 149/83 09/08/18 04:00 98.7 84 17 134/71 (92) 92 09/08/18 04:00 80 09/08/18 03:43 Nasal Cannula 2.0 28 09/08/18 03:43 Nasal Cannula 2.0 28 09/08/18 00:00 98.9 84 17 149/83 (105) 93 09/08/18 00:00 79 09/07/18 23:15 75 18 96 Nasal Cannula 2.0 28 09/07/18 23:14 74 18 95 Nasal Cannula 2.0 28 09/07/18 21:33 103 182/103 09/07/18 21:32 182/103 09/07/18 21:00 Nasal Cannula 2.0 09/07/18 20:00 98.8 103 18 182/103 (129) 94 09/07/18 20:00 99 09/07/18 19:45 69 18 96 Nasal Cannula 2.0 28 09/07/18 19:45 76 18 93 Room Air 21 09/07/18 18:00 153/76 Height (Feet): 5 Height (Inches): 4.00 Weight (Pounds): 110 General Appearance: WD/WN, no acute distress HEENT: normocephalic, atraumatic, anicteric, mucous membranes moist, PERRL Respiratory/Chest: chest wall non-tender, no respiratory distress, no accessory muscle use, decreased breath sounds, crackles/rales Cardiovascular: normal peripheral pulses, normal rate, regular rhythm, no gallop/murmur, no JVD Abdomen: normal bowel sounds, soft, non tender, no organomegaly, non distended , no mass, no scars Genitourinary: normal external genitalia Extremities: no cyanosis, no clubbing Skin: no rash, no lesions 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 Complete 09/05/18 17:50 Nasal Nares Influenza Types A,B Antigen (ARJUN) - Final Complete 09/06/18 21:05 Indwelling Cath Urine Culture - Preliminary Resulted 09/05/18 18:55 Rectum - Final NO CARBAPENEM-RESISTANT ENTEROBACTERI... Complete 09/05/18 18:55 Rectum VRE Culture - Final NO VANCOMYCIN RESISTANT ENTEROCOCCUS ... Complete Laboratory Tests Test 09/08/18 06:24 09/08/18 17:00 White Blood Count 11.0 K/UL (4.8-10.8) H Red Blood Count 4.40 M/UL (4.20-5.40) Hemoglobin 14.3 G/DL (12.0-16.0) Hematocrit 40.9 % (37.0-47.0) Mean Corpuscular Volume 93 FL (80-99) Mean Corpuscular Hemoglobin 32.4 PG (27.0-31.0) H Mean Corpuscular Hemoglobin Concent 34.9 G/DL (32.0-36.0) Red Cell Distribution Width 10.4 % (11.6-14.8) L Platelet Count 795 K/UL (150-450) H Mean Platelet Volume 5.2 FL (6.5-10.1) L Neutrophils (%) (Auto) 78.7 % (45.0-75.0) H Lymphocytes (%) (Auto) 7.2 % (20.0-45.0) L Monocytes (%) (Auto) 8.7 % (1.0-10.0) Eosinophils (%) (Auto) 4.6 % (0.0-3.0) H Basophils (%) (Auto) 0.8 % (0.0-2.0) Sodium Level 137 MMOL/L (136-145) Potassium Level 2.9 MMOL/L (3.5-5.1) L Chloride Level 99 MMOL/L (98-107) Carbon Dioxide Level 27 MMOL/L (21-32) Anion Gap 11 mmol/L (5-15) Blood Urea Nitrogen 13 mg/dL (7-18) Creatinine 1.0 MG/DL (0.55-1.30) Estimat Glomerular Filtration Rate mL/min (>60) Glucose Level 120 MG/DL (74-106) H Calcium Level 9.1 MG/DL (8.5-10.1) Phosphorus Level 3.4 MG/DL (2.5-4.9) Magnesium Level 2.0 MG/DL (1.8-2.4) Total Bilirubin 0.6 MG/DL (0.2-1.0) Aspartate Amino Transf (AST/SGOT) 113 U/L (15-37) H Alanine Aminotransferase (ALT/SGPT) 143 U/L (12-78) H Alkaline Phosphatase 135 U/L (46-116) H Total Protein 6.9 G/DL (6.4-8.2) Albumin 2.6 G/DL (3.4-5.0) L Globulin 4.3 g/dL Albumin/Globulin Ratio 0.6 (1.0-2.7) L Vancomycin Level Trough Pending Current Medications Medications (Trade) Dose Ordered Sig/Cassy Route PRN Reason Start Time Stop Time Status Last Admin Dose Admin Acetaminophen (Tylenol) 650 mg Q6H PRN ORAL PAIN/TEMP > 101 09/05/18 23:45 10/05/18 23:44 Albuterol/ Ipratropium (Albuterol/ Ipratropium) 3 ml Q4H PRN HHN sob 09/07/18 10:45 09/12/18 10:44 Clonidine HCl (Catapres Tab) 0.1 mg Q4H PRN ORAL bp over 160 syst 09/06/18 11:00 10/06/18 10:59 09/06/18 17:40 Docusate Sodium (Colace) 100 mg TID ORAL 09/06/18 18:00 10/06/18 08:59 09/08/18 14:25 Heparin Sodium (Porcine) (Heparin 5000 units/ml) 5,000 units EVERY 12 HOURS SUBQ 09/06/18 09:00 10/06/18 08:59 09/08/18 09:00 Hydralazine HCl (Apresoline) 75 mg Q8HR ORAL 09/08/18 14:00 10/06/18 17:59 09/08/18 14:24 Losartan Potassium (Cozaar) 50 mg BID ORAL 09/06/18 09:00 10/06/18 08:59 09/08/18 09:59 Metoprolol Tartrate (Lopressor) 75 mg Q12HR ORAL 09/08/18 21:00 10/06/18 08:59 Pantoprazole (Protonix) 40 mg Q12HR ORAL 09/06/18 21:00 10/06/18 08:59 09/08/18 10:00 Piperacillin Sod/ Tazobactam Sod 3.375 gm/Dextrose 110 ml @ 27.5 mls/hr EVERY 8 HOURS IVPB 09/06/18 15:00 09/11/18 14:59 09/08/18 14:25 Potassium Chloride (K-Dur) 40 meq TWICE A DAY ORAL 09/07/18 13:15 10/07/18 13:14 09/08/18 10:07 Promethazine HCl/ Codeine (Phenergan with Codeine) 10 ml TID PRN ORAL For Cough 09/06/18 23:45 10/06/18 23:44 09/08/18 16:11 Vancomycin HCl (Vanco rx to dose) 1 ea DAILY PRN MISC Per rx protocol 09/06/18 14:00 10/06/18 13:59 Vancomycin HCl 500 mg/Dextrose 110 ml @ 110 mls/hr Q24H IVPB 09/07/18 18:00 09/12/18 17:59 09/07/18 18:00 Carlie Parikh M.D. Sep 08, 2018 17:30
[2018-09-08 20:00] VITALS: BP 169/102
--- NOTE | 2018-09-08 20:15 | NUR ---
HAND-OFF: Report received from Lopez MUNOZ. Pt awake and alert in bed, on 2L via NC, no complaints of pain or distress at this time. Vital signs stable, with HR on 107 on the monitor. Bed alarm on, bed put in lowest position, commode at bedside, call light within reach. All needs met. Will continue to monitor for any acute changes.
[2018-09-08] MEDS: Metoprolol 25mg tab ORAL SCH (21:42)
[2018-09-09] VITALS (7 sets, daily range): BP systolic 98–167; BP diastolic 56–81
[2018-09-09] MEDS: Piperacillin/Tazobactam 3.375 GM in D5W 110 ML IVPB SCH ×3 (05:14→21:44)
[2018-09-09] MEDS: HydrALAZINE 25mg tab ORAL SCH ×3 (05:22→21:43)
[2018-09-09 07:20] LABS: BASOPHILS % (AUTO) 0.7 % (0.0-2.0); EOSINOPHILS % (AUTO) 4.3 % (0.0-3.0); HEMATOCRIT 33.4 % (37.0-47.0); HEMOGLOBIN 11.5 G/DL (12.0-16.0); LYMPHOCYTES % (AUTO) 6.8 % (20.0-45.0); MEAN CORPUSCULAR VOLUME 93 FL (80-99); MONOCYTES % (AUTO) 8.8 % (1.0-10.0); NEUTROPHILS % (AUTO) 79.5 % (45.0-75.0); PLATELET COUNT 698 K/UL (150-450); RED BLOOD COUNT 3.59 M/UL (4.20-5.40); RED CELL DISTRIBUTION WIDTH 10.7 % (11.6-14.8); WHITE BLOOD COUNT 10.2 K/UL (4.8-10.8)
--- NOTE | 2018-09-09 07:23 | NUR ---
HAND-OFF: Report given to Kasie MUNOZ.
--- NOTE | 2018-09-09 07:25 | NUR ---
NURSE NOTES: Received bedside report from Jessica MUNOZ. Pt. in bed, awake, a/o x 1, forgetful and confused at times. No sign of distress. Denies pain at present. IV site at left FA #[id number]. in placed SL. Bed in low position, locked. Call light within reach. Will cont. to monitor.
[2018-09-09 07:34] LABS: ALANINE AMINOTRANSFERASE 93 U/L (12-78); ALBUMIN 2.2 G/DL (3.4-5.0); ALBUMIN/GLOBULIN RATIO 0.6 (1.0-2.7); ALKALINE PHOSPHATASE 105 U/L (46-116); ANION GAP 7 mmol/L (5-15); ASPARTATE AMINO TRANSFERASE 56 U/L (15-37); BILIRUBIN,TOTAL 0.6 MG/DL (0.2-1.0); BLOOD UREA NITROGEN 10 mg/dL (7-18); CALCIUM 8.4 MG/DL (8.5-10.1); CARBON DIOXIDE 25 MMOL/L (21-32); CHLORIDE 102 MMOL/L (98-107); CREATININE 0.8 MG/DL (0.55-1.30); PHOSPHORUS 2.4 MG/DL (2.5-4.9); POTASSIUM 3.7 MMOL/L (3.5-5.1); SODIUM 134 MMOL/L (136-145)
--- NOTE | 2018-09-09 09:08 | NUR ---
RD ASSESSMENT & RECOMMENDATIONS SEE CARE ACTIVITY FOR COMPLETE ASSESSMENT DAILY ESTIMATED NEEDS: Needs based on Underweight/ 50.4kg 30-35 kcals/kg 2251-8770 total kcals 1-1.5 g protein/kg 50-75 g total protein 25-30 mL/kg 1591-7196 total fluid mLs NUTRITION DIAGNOSIS: Swallowing difficulty R/T dysphagia as evidenced by LOOP DRIER OPERATOR recommends mech soft chopped, NTL. CURRENT DIET:REGULAR, mech soft chopped, NTL PO DIET RECOMMENDATIONS: Liberalized REGULAR w/ poor PO, texture per LOOP DRIER OPERATOR ADDITIONAL RECOMMENDATIONS: * Calibrated bedscale wt for accurate CBW, weekly wts- underweight * Ensure Enlive BID w/ breakfast + dinner (brayan flavor per pt request) * MVI x 1 as supplement * Monitor lytes, replete as needed (low phos and mag) * Monitor PO intake closely- poor and variable at this time
--- NOTE | 2018-09-09 09:32 | NUR ---
P.T Note: Pt. stable and cleared by RN for mobility. P.T evaluation completed . Vitals were stable althrough out P.T evaluation. Pt is is pleasantly confused , O x 1 however follows simple commands. Pt is generally weak affecting her balance and safety. Pt currently require MIN A X 1 for bed mobility, transfers and gait/ambulation activities using the FWW. Skilled P.T service is warranted to increase strength, balance and endurance to improve safety and independence with functional mobilities. Recommend return to SNF with continued P.T. Pt is cleared for OOB activities with nursing. Thank you for this referral.
[2018-09-09] MEDS: Metoprolol 25mg tab ORAL SCH ×2 (09:49→21:42)
[2018-09-09] MEDS: Heparin 5000 units/ml inj SUBQ SCH ×2 (09:51→21:50)
[2018-09-09] MEDS: Docusate 100mg cap ORAL SCH ×3 (09:51→18:04)
[2018-09-09] MEDS: Losartan 50mg tab ORAL SCH ×2 (10:56→18:04)
--- NOTE | 2018-09-09 11:31 | NUR ---
RADIOLOGY DEPT CHEST X-RAY DONE.-P.DYE
--- NOTE | 2018-09-09 12:43 | Diagnostic Imaging Report ---
Indication: Shortness of breath Technique: One view of the chest Comparison: 09/05/2018 Findings: Patient is currently rotated to the right. Previously demonstrated right infrahilar infiltrate persists, is less well-demonstrated due to the rotation, unchanged or slightly improved. There is increasing atelectasis at the left lung base. Impression: Persistent, perhaps slightly improved right infrahilar consolidation Increasing left basilar atelectasis, over 4 days
--- NOTE | 2018-09-09 13:19 | Pulmonology Progress Note ---
Assessment/Plan Problems: (1) Pneumonia (2) UTI (urinary tract infection) (3) Alzheimer's dementia (4) Protein-calorie malnutrition, severe (5) Pubic bone fracture (6) FTT (failure to thrive) in adult Assessment/Plan improving continue abx check sputum on diuretics f/u bun/creatinine Subjective ROS Limited/Unobtainable: No Constitutional: Reports: no symptoms HEENT: Repors: no symptoms Respiratory: Reports: no symptoms Allergies: Coded Allergies: LATEX (Verified Allergy, Unknown, 02/11/09) MELOXICAM (Verified Allergy, Unknown, 02/11/09) PREDNISONE (Verified Allergy, Unknown, 02/11/09) Objective Last 24 Hour Vital Signs Date Time Temp Pulse Resp B/P (MAP) Pulse Ox O2 Delivery O2 Flow Rate FiO2 09/09/18 12:00 97.9 70 18 145/56 (85) 93 09/09/18 10:56 167/77 09/09/18 09:49 78 167/77 09/09/18 09:00 Nasal Cannula 2.0 09/09/18 08:03 78 16 95 Room Air 21 09/09/18 08:00 97.5 93 19 167/77 (107) 93 09/09/18 08:00 77 16 96 Room Air 21 09/09/18 08:00 77 18 Room Air 09/09/18 07:03 82 09/09/18 05:22 142/81 09/09/18 04:00 77 09/09/18 04:00 99.0 88 19 142/81 (101) 95 09/09/18 02:45 Room Air 21 09/09/18 02:45 Room Air 21 09/09/18 00:00 76 09/09/18 00:00 98.0 75 18 98/58 (71) 95 09/08/18 23:28 75 18 95 Room Air 21 09/08/18 23:18 73 18 95 Room Air 21 09/08/18 21:43 169/102 09/08/18 21:42 75 169/102 09/08/18 21:18 75 18 95 Room Air 21 09/08/18 21:14 75 18 94 Room Air 21 09/08/18 21:14 75 18 Room Air 21 09/08/18 21:00 Nasal Cannula 2.0 3/10/19 20:00 97.7 98 22 169/102 (124) 94 09/08/18 20:00 100 09/08/18 17:34 153/86 09/08/18 16:00 95 09/08/18 16:00 98.7 95 23 153/86 (108) 94 09/08/18 15:20 78 18 96 Room Air 21 09/08/18 15:20 77 18 95 Room Air 21 09/08/18 14:24 149/83 Intake and Output 09/08/18 09/09/18 18:59 06:59 Intake Total 240 ml Output Total 600 ml Balance 240 ml -600 ml Intake Oral 240 ml Output Urine Total 600 ml # Voids 2 General Appearance: cachetic HEENT: normocephalic, atraumatic Respiratory/Chest: chest wall non-tender, lungs clear Breasts: no masses Cardiovascular: normal peripheral pulses Abdomen: normal bowel sounds, soft, non tender, no organomegaly Genitourinary: normal external genitalia Skin: no lesions 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 Microbiology Date/Time Source Procedure Growth Status 09/06/18 21:05 Indwelling Cath Urine Culture - Preliminary YEAST Resulted Laboratory Tests 09/08/18 17:00: Vancomycin Level Trough 1.1L 09/09/18 04:45: White Blood Count 10.2, Red Blood Count 3.59L, Hemoglobin 11.5L, Hematocrit 33.4L, Mean Corpuscular Volume 93, Mean Corpuscular Hemoglobin 31.9H, Mean Corpuscular Hemoglobin Concent 34.3, Red Cell Distribution Width 10.7L, Platelet Count 698H, Mean Platelet Volume 4.9L, Neutrophils (%) (Auto) 79.5H, Lymphocytes (%) (Auto) 6.8L, Monocytes (%) (Auto) 8.8, Eosinophils (%) (Auto) 4.3H, Basophils (%) (Auto) 0.7, Sodium Level 134L, Potassium Level 3.7, Chloride Level 102, Carbon Dioxide Level 25, Anion Gap 7, Blood Urea Nitrogen 10 , Creatinine 0.8, Estimat Glomerular Filtration Rate , Glucose Level 98, Osmolality 277L, Uric Acid 1.4L, Calcium Level 8.4L, Phosphorus Level 2.4L, Magnesium Level 1.6L, Total Bilirubin 0.6, Aspartate Amino Transf (AST/SGOT) 56H , Alanine Aminotransferase (ALT/SGPT) 93H, Alkaline Phosphatase 105, C-Reactive Protein, Quantitative 9.3H, Total Protein 5.7L, Albumin 2.2L, Globulin 3.5, Albumin/Globulin Ratio 0.6L Current Medications Medications (Trade) Dose Ordered Sig/Cassy Route PRN Reason Start Time Stop Time Status Last Admin Dose Admin Acetaminophen (Tylenol) 650 mg Q6H PRN ORAL PAIN/TEMP > 101 09/05/18 23:45 10/05/18 23:44 Albuterol/ Ipratropium (Albuterol/ Ipratropium) 3 ml Q4H PRN HHN sob 09/07/18 10:45 09/12/18 10:44 Clonidine HCl (Catapres Tab) 0.1 mg Q4H PRN ORAL bp over 160 syst 09/06/18 11:00 10/06/18 10:59 09/06/18 17:40 Docusate Sodium (Colace) 100 mg TID ORAL 09/06/18 18:00 10/06/18 08:59 09/09/18 12:42 Furosemide (Lasix) 10 mg EVERY 8 HOURS IV 09/09/18 14:00 10/09/18 13:59 Heparin Sodium (Porcine) (Heparin 5000 units/ml) 5,000 units EVERY 12 HOURS SUBQ 09/06/18 09:00 10/06/18 08:59 09/09/18 09:51 Hydralazine HCl (Apresoline) 75 mg Q8HR ORAL 09/08/18 14:00 10/06/18 17:59 09/09/18 05:22 Losartan Potassium (Cozaar) 50 mg BID ORAL 09/06/18 09:00 10/06/18 08:59 09/09/18 10:56 Magnesium Sulfate 100 ml @ 100 mls/hr Q1H IVPB 09/09/18 10:30 09/09/18 14:29 09/09/18 12:42 Metoprolol Tartrate (Lopressor) 75 mg Q12HR ORAL 09/08/18 21:00 10/06/18 08:59 09/09/18 09:49 Pantoprazole (Protonix) 40 mg Q12HR ORAL 09/06/18 21:00 10/06/18 08:59 09/09/18 09:49 Piperacillin Sod/ Tazobactam Sod 3.375 gm/Dextrose 110 ml @ 27.5 mls/hr EVERY 8 HOURS IVPB 09/06/18 15:00 09/11/18 14:59 09/09/18 05:14 Potassium Phosphate 20 mm/ Sodium Chloride 281.6667 ml @ 46.944 m... ONCE ONCE IV 09/09/18 14:30 09/09/18 20:29 Potassium Chloride (K-Dur) 40 meq TWICE A DAY ORAL 09/07/18 13:15 10/07/18 13:14 09/09/18 09:50 Promethazine HCl/ Codeine (Phenergan with Codeine) 10 ml TID PRN ORAL For Cough 09/06/18 23:45 10/06/18 23:44 09/08/18 16:11 Sodium Chloride 250 ml @ 30 mls/hr ONCE ONCE IV 09/09/18 11:30 09/09/18 19:49 09/09/18 11:50 Marcy Tierney MD Sep 09, 2018 13:19
--- NOTE | 2018-09-09 14:17 | NUR ---
P.T Note: Addendum: Spoke to family member ; patient's sister and niece from [place] who are in town to assist pt. Family member stated that pt has DME's and 24 Hour CG at home and would prefer that pt go home after DC from the hospital. Based on P.T assessment and the information provided by the family member, patient would benefit more from home P.T with 24 hr caregiver VS SNF.
[2018-09-09] MEDS ORDERED: Potassium Phosphate 20 MM in NS 275 ML IV ONE (14:30)
--- NOTE | 2018-09-09 14:30 | NUR ---
CASE MANAGEMENT:REVIEW 09/09/18 SI: ASPIRATION PNA. PUBIC FRACTURE 97.9 70 18 145/56 93% ON 2L/NC H/H-11.5/33.4 AST/ALT+63/94 IS: IV K-PHOS X1 IV LASIX Q8HRS IV NACL 3% @ 30/HR IV MAG SULFATE X1 LOPRESSOR PO Q12 HYDRALAZINE PO Q8 : TRANSFER FROM TELEMETRY TO MED/SURG DCP: PATIENT IS FROM [facility] HOWEVER SISTER WANTS TO TAKE HER HOME REFER TO HOME HEALTH UPON DISCHARGE
--- NOTE | 2018-09-09 15:01 | General Progress Note ---
Assessment/Plan Problem List: (1) Aspiration pneumonia ICD Codes: J69.0 - Pneumonitis due to inhalation of food and vomit SNOMED: 949584626 (2) HTN (hypertension) ICD Codes: I10 - Essential (primary) hypertension SNOMED: 79563144 (3) Pubic bone fracture ICD Codes: S32.509A - Unspecified fracture of unspecified pubis, initial encounter for closed fracture SNOMED: 54634331 (4) UTI (urinary tract infection) ICD Codes: N39.0 - Urinary tract infection, site not specified SNOMED: 85127279 (5) Protein-calorie malnutrition, severe ICD Codes: E43 - Unspecified severe protein-calorie malnutrition SNOMED: 402026788, 485709773, 803659754 (6) Urinary tract infection ICD Codes: N39.0 - Urinary tract infection, site not specified SNOMED: 15360934 (7) Hyponatremia ICD Codes: E87.1 - Hypo-osmolality and hyponatremia SNOMED: 18158195 Assessment/Plan Pt eval increase lopressor and Hydralazine K supplement watch lytes stop lipitor as LFTs rising Zosyn Vanco per ID Pulm Toilet aim to correct Na DC planning home with home health Subjective ROS Limited/Unobtainable: No Constitutional: Reports: other - stronger Allergies: Coded Allergies: LATEX (Verified Allergy, Unknown, 02/11/09) MELOXICAM (Verified Allergy, Unknown, 02/11/09) PREDNISONE (Verified Allergy, Unknown, 02/11/09) Objective Last 24 Hour Vital Signs Date Time Temp Pulse Resp B/P (MAP) Pulse Ox O2 Delivery O2 Flow Rate FiO2 09/09/18 14:45 130/72 09/09/18 14:22 130/72 (91) 09/09/18 12:00 97.9 70 18 145/56 (85) 93 09/09/18 11:37 72 16 97 Room Air 21 09/09/18 11:35 70 16 97 Room Air 21 09/09/18 10:56 167/77 09/09/18 09:49 78 167/77 09/09/18 09:00 Nasal Cannula 2.0 09/09/18 08:03 78 16 95 Room Air 21 09/09/18 08:00 97.5 93 19 167/77 (107) 93 09/09/18 08:00 77 16 96 Room Air 21 09/09/18 08:00 77 18 Room Air 21 09/09/18 07:03 82 09/09/18 05:22 142/81 09/09/18 04:00 77 09/09/18 04:00 99.0 88 19 142/81 (101) 95 09/09/18 02:45 Room Air 21 09/09/18 02:45 Room Air 21 09/09/18 00:00 76 09/09/18 00:00 98.0 75 18 98/58 (71) 95 09/08/18 23:28 75 18 95 Room Air 21 09/08/18 23:18 73 18 95 Room Air 21 09/08/18 21:43 169/102 09/08/18 21:42 75 169/102 09/08/18 21:18 75 18 95 Room Air 21 09/08/18 21:14 75 18 94 Room Air 21 09/08/18 21:14 75 18 Room Air 21 09/08/18 21:00 Nasal Cannula 2.0 09/08/18 20:00 97.7 98 22 169/102 (124) 94 09/08/18 20:00 100 09/08/18 17:34 153/86 09/08/18 16:00 95 09/08/18 16:00 98.7 95 23 153/86 (108) 94 09/08/18 15:20 78 18 96 Room Air 21 09/08/18 15:20 77 18 95 Room Air 21 Intake and Output 09/08/18 09/09/18 19:00 07:00 Intake Total 240 ml Output Total 600 ml Balance 240 ml -600 ml Intake Oral 240 ml Output Urine Total 600 ml # Voids 2 Current Medications Medications (Trade) Dose Ordered Sig/Cassy Route PRN Reason Start Time Stop Time Status Last Admin Dose Admin Acetaminophen (Tylenol) 650 mg Q6H PRN ORAL PAIN/TEMP > 101 09/05/18 23:45 10/05/18 23:44 Albuterol/ Ipratropium (Albuterol/ Ipratropium) 3 ml Q4H PRN HHN sob 09/07/18 10:45 09/12/18 10:44 Clonidine HCl (Catapres Tab) 0.1 mg Q4H PRN ORAL bp over 160 syst 09/06/18 11:00 10/06/18 10:59 09/06/18 17:40 Docusate Sodium (Colace) 100 mg TID ORAL 09/06/18 18:00 10/06/18 08:59 09/09/18 12:42 Furosemide (Lasix) 10 mg EVERY 8 HOURS IV 09/09/18 14:00 10/09/18 13:59 09/09/18 14:45 Heparin Sodium (Porcine) (Heparin 5000 units/ml) 5,000 units EVERY 12 HOURS SUBQ 09/06/18 09:00 10/06/18 08:59 09/09/18 09:51 Hydralazine HCl (Apresoline) 75 mg Q8HR ORAL 09/08/18 14:00 10/06/18 17:59 09/09/18 14:45 Losartan Potassium (Cozaar) 50 mg BID ORAL 09/06/18 09:00 10/06/18 08:59 09/09/18 10:56 Metoprolol Tartrate (Lopressor) 75 mg Q12HR ORAL 09/08/18 21:00 10/06/18 08:59 09/09/18 09:49 Pantoprazole (Protonix) 40 mg Q12HR ORAL 09/06/18 21:00 10/06/18 08:59 09/09/18 09:49 Piperacillin Sod/ Tazobactam Sod 3.375 gm/Dextrose 110 ml @ 27.5 mls/hr EVERY 8 HOURS IVPB 09/06/18 15:00 09/11/18 14:59 09/09/18 14:47 Potassium Phosphate 20 mm/ Sodium Chloride 281.6667 ml @ 46.944 m... ONCE ONCE IV 09/09/18 14:30 09/09/18 20:29 Potassium Chloride (K-Dur) 40 meq TWICE A DAY ORAL 09/07/18 13:15 10/07/18 13:14 09/09/18 09:50 Promethazine HCl/ Codeine (Phenergan with Codeine) 10 ml TID PRN ORAL For Cough 09/06/18 23:45 10/06/18 23:44 09/08/18 16:11 Sodium Chloride 250 ml @ 30 mls/hr ONCE ONCE IV 09/09/18 11:30 09/09/18 19:49 09/09/18 11:50 Laboratory Tests 09/08/18 17:00: Vancomycin Level Trough 1.1L 09/09/18 04:45: White Blood Count 10.2, Red Blood Count 3.59L, Hemoglobin 11.5L, Hematocrit 33.4L, Mean Corpuscular Volume 93, Mean Corpuscular Hemoglobin 31.9H, Mean Corpuscular Hemoglobin Concent 34.3, Red Cell Distribution Width 10.7L, Platelet Count 698H, Mean Platelet Volume 4.9L, Neutrophils (%) (Auto) 79.5H, Lymphocytes (%) (Auto) 6.8L, Monocytes (%) (Auto) 8.8, Eosinophils (%) (Auto) 4.3H, Basophils (%) (Auto) 0.7, Sodium Level 134L, Potassium Level 3.7, Chloride Level 102, Carbon Dioxide Level 25, Anion Gap 7, Blood Urea Nitrogen 10 , Creatinine 0.8, Estimat Glomerular Filtration Rate , Glucose Level 98, Osmolality 277L, Uric Acid 1.4L, Calcium Level 8.4L, Phosphorus Level 2.4L, Magnesium Level 1.6L, Total Bilirubin 0.6, Aspartate Amino Transf (AST/SGOT) 56H , Alanine Aminotransferase (ALT/SGPT) 93H, Alkaline Phosphatase 105, C-Reactive Protein, Quantitative 9.3H, Total Protein 5.7L, Albumin 2.2L, Globulin 3.5, Albumin/Globulin Ratio 0.6L Height (Feet): 5 Height (Inches): 4.00 Weight (Pounds): 110 Max Randolph MD Sep 09, 2018 15:01
--- NOTE | 2018-09-09 16:32 | Infectious Diseases Prog Note ---
Assessment/Plan Problems: (1) Aspiration pneumonia Assessment & Plan: with right side infrahilar infiltrates , complicated with pleural effusion , continue zosyn empiric coverage pending sputum culture if she produces any , aspiration precaution and keep HOB > 30 degree. may switch to oral Augmentin to finish her course of treatment once ready for discharge (2) UTI (urinary tract infection) Assessment & Plan: with yeast most likely contaminant , culture grew small colony (3) Sepsis Assessment & Plan: due to the above , with negative blood culture x2 , on zosyn empirically to cover pneumonia (4) FTT (failure to thrive) in adult Assessment & Plan: screening for syphilis and HIV is negative (5) Fever Assessment & Plan: suspect due to the above, resolved continue wide spectrum antibiotics and tylenol as needed (6) Folliculitis and perifolliculitis Assessment & Plan: already on antibiotics, improving, encourage skin cleaning and ventilation and shower as needed Subjective Constitutional: Reports: no symptoms HEENT: Reports: no symptoms Respiratory: Reports: dry cough Breasts: Reports: no symptoms Cardiovascular: Reports: no symptoms Gastrointestinal/Abdominal: Reports: no symptoms Genitourinary: Reports: no symptoms Neurologic: Reports: no symptoms Psychiatric: Reports: no symptoms Skin: Reports: other - back itching Endocrine: Reports: no symptoms Hematologic: Reports: no symptoms Musculoskeletal: Reports: no symptoms Allergies: Coded Allergies: LATEX (Verified Allergy, Unknown, 02/11/09) MELOXICAM (Verified Allergy, Unknown, 02/11/09) PREDNISONE (Verified Allergy, Unknown, 02/11/09) Subjective she awake and comfortable, up in bed, denied any fever or chills, has foliculitis on her back which is improving , no skin rash , afebrile Objective Vital Signs Last 24 Hour Vital Signs Date Time Temp Pulse Resp B/P (MAP) Pulse Ox O2 Delivery O2 Flow Rate FiO2 09/09/18 14:45 130/72 09/09/18 14:22 130/72 (91) 09/09/18 12:02 65 09/09/18 12:00 97.9 70 18 145/56 (85) 93 09/09/18 11:37 72 16 97 Room Air 21 09/09/18 11:35 70 16 97 Room Air 21 09/09/18 10:56 167/77 09/09/18 09:49 78 167/77 09/09/18 09:00 Nasal Cannula 2.0 09/09/18 08:03 78 16 95 Room Air 21 09/09/18 08:00 97.5 93 19 167/77 (107) 93 09/09/18 08:00 77 16 96 Room Air 21 09/09/18 08:00 77 18 Room Air 21 09/09/18 07:03 82 09/09/18 05:22 142/81 09/09/18 04:00 77 09/09/18 04:00 99.0 88 19 142/81 (101) 95 09/09/18 02:45 Room Air 21 09/09/18 02:45 Room Air 21 09/09/18 00:00 76 09/09/18 00:00 98.0 75 18 98/58 (71) 95 09/08/18 23:28 75 18 95 Room Air 21 09/08/18 23:18 73 18 95 Room Air 21 09/08/18 21:43 169/102 09/08/18 21:42 75 169/102 09/08/18 21:18 75 18 95 Room Air 21 09/08/18 21:14 75 18 94 Room Air 21 09/08/18 21:14 75 18 Room Air 21 09/08/18 21:00 Nasal Cannula 2.0 09/08/18 20:00 97.7 98 22 169/102 (124) 94 09/08/18 20:00 100 09/08/18 17:34 153/86 Height (Feet): 5 Height (Inches): 4.00 Weight (Pounds): 110 General Appearance: WD/WN, no acute distress HEENT: normocephalic, atraumatic, anicteric, mucous membranes moist, PERRL Respiratory/Chest: chest wall non-tender, no respiratory distress, no accessory muscle use, decreased breath sounds, crackles/rales Cardiovascular: normal peripheral pulses, normal rate, regular rhythm, no gallop/murmur, no JVD Abdomen: normal bowel sounds, soft, non tender, no organomegaly, non distended , no mass, no scars Extremities: no cyanosis, no clubbing Skin: no rash, no lesions Neurologic/Psychiatric: alert, responsive Lymphatic: no neck adenopathy, no groin adenopathy Musculoskeletal: normal muscle bulk, no effusion Microbiology Date/Time Source Procedure Growth Status 3/8/19 21:05 Indwelling Cath Urine Culture - Preliminary YEAST Resulted Laboratory Tests Test 09/08/18 17:00 09/09/18 04:45 Vancomycin Level Trough 1.1 ug/mL (5.0-12.0) L White Blood Count 10.2 K/UL (4.8-10.8) Red Blood Count 3.59 M/UL (4.20-5.40) L Hemoglobin 11.5 G/DL (12.0-16.0) L Hematocrit 33.4 % (37.0-47.0) L Mean Corpuscular Volume 93 FL (80-99) Mean Corpuscular Hemoglobin 31.9 PG (27.0-31.0) H Mean Corpuscular Hemoglobin Concent 34.3 G/DL (32.0-36.0) Red Cell Distribution Width 10.7 % (11.6-14.8) L Platelet Count 698 K/UL (150-450) H Mean Platelet Volume 4.9 FL (6.5-10.1) L Neutrophils (%) (Auto) 79.5 % (45.0-75.0) H Lymphocytes (%) (Auto) 6.8 % (20.0-45.0) L Monocytes (%) (Auto) 8.8 % (1.0-10.0) Eosinophils (%) (Auto) 4.3 % (0.0-3.0) H Basophils (%) (Auto) 0.7 % (0.0-2.0) Sodium Level 134 MMOL/L (136-145) L Potassium Level 3.7 MMOL/L (3.5-5.1) Chloride Level 102 MMOL/L (98-107) Carbon Dioxide Level 25 MMOL/L (21-32) Anion Gap 7 mmol/L (5-15) Blood Urea Nitrogen 10 mg/dL (7-18) Creatinine 0.8 MG/DL (0.55-1.30) Estimat Glomerular Filtration Rate mL/min (>60) Glucose Level 98 MG/DL (74-106) Osmolality 277 mOsm/kg (297-317) L Uric Acid 1.4 MG/DL (2.6-7.2) L Calcium Level 8.4 MG/DL (8.5-10.1) L Phosphorus Level 2.4 MG/DL (2.5-4.9) L Magnesium Level 1.6 MG/DL (1.8-2.4) L Total Bilirubin 0.6 MG/DL (0.2-1.0) Aspartate Amino Transf (AST/SGOT) 56 U/L (15-37) H Alanine Aminotransferase (ALT/SGPT) 93 U/L (12-78) H Alkaline Phosphatase 105 U/L (46-116) C-Reactive Protein, Quantitative 9.3 mg/dL (0.00-0.90) H Total Protein 5.7 G/DL (6.4-8.2) L Albumin 2.2 G/DL (3.4-5.0) L Globulin 3.5 g/dL Albumin/Globulin Ratio 0.6 (1.0-2.7) L Current Medications Medications (Trade) Dose Ordered Sig/Cassy Route PRN Reason Start Time Stop Time Status Last Admin Dose Admin Acetaminophen (Tylenol) 650 mg Q6H PRN ORAL PAIN/TEMP > 101 09/05/18 23:45 10/05/18 23:44 Albuterol/ Ipratropium (Albuterol/ Ipratropium) 3 ml Q4H PRN HHN sob 09/07/18 10:45 09/12/18 10:44 Clonidine HCl (Catapres Tab) 0.1 mg Q4H PRN ORAL bp over 160 syst 09/06/18 11:00 10/06/18 10:59 09/06/18 17:40 Docusate Sodium (Colace) 100 mg TID ORAL 09/06/18 18:00 10/06/18 08:59 09/09/18 12:42 Furosemide (Lasix) 10 mg EVERY 8 HOURS IV 09/09/18 14:00 10/09/18 13:59 09/09/18 14:45 Heparin Sodium (Porcine) (Heparin 5000 units/ml) 5,000 units EVERY 12 HOURS SUBQ 09/06/18 09:00 10/06/18 08:59 09/09/18 09:51 Hydralazine HCl (Apresoline) 75 mg Q8HR ORAL 09/08/18 14:00 10/06/18 17:59 09/09/18 14:45 Losartan Potassium (Cozaar) 50 mg BID ORAL 09/06/18 09:00 10/06/18 08:59 09/09/18 10:56 Metoprolol Tartrate (Lopressor) 75 mg Q12HR ORAL 09/08/18 21:00 10/06/18 08:59 09/09/18 09:49 Pantoprazole (Protonix) 40 mg Q12HR ORAL 09/06/18 21:00 10/06/18 08:59 09/09/18 09:49 Piperacillin Sod/ Tazobactam Sod 3.375 gm/Dextrose 110 ml @ 27.5 mls/hr EVERY 8 HOURS IVPB 09/06/18 15:00 09/11/18 14:59 09/09/18 14:47 Potassium Phosphate 20 mm/ Sodium Chloride 281.6667 ml @ 46.944 m... ONCE ONCE IV 09/09/18 14:30 09/09/18 20:29 09/09/18 15:56 Potassium Chloride (K-Dur) 40 meq TWICE A DAY ORAL 09/07/18 13:15 10/07/18 13:14 09/09/18 09:50 Promethazine HCl/ Codeine (Phenergan with Codeine) 10 ml TID PRN ORAL For Cough 09/06/18 23:45 10/06/18 23:44 09/08/18 16:11 Sodium Chloride 250 ml @ 30 mls/hr ONCE ONCE IV 09/09/18 11:30 09/09/18 19:49 09/09/18 11:50 Carlie Parikh M.D. Sep 09, 2018 16:32
--- NOTE | 2018-09-09 19:40 | NUR ---
NURSE NOTES: Received pt. and report from ALEXANDER Ferro. Observe pt. resting in bed with both eyes open. Family member is at bedside. gambling monitor is in placed, IV site intact, asymptomatic and patent. Bed is in the lowest position and locked. Call light within reach. No acute distress noted at this time. Will continue plan of care.
--- NOTE | 2018-09-09 19:50 | NUR ---
HAND-OFF: Report given to Michelle MUNOZ. Pt. remain stable.
--- NOTE | 2018-09-09 23:32 | NUR ---
TRANSFER TO FLOOR: Patient transferred to [facility] via bed at 2245, per Dr. Tierney. Pt. transferred to unit without any incident. Report given to ALEXANDER Holly. Belongings list checked and accounted and medications given to ALEXANDER Holly. Family member was informed of transfer. Pt. is in stable condition. Orders transferred.
--- NOTE | 2018-09-09 23:35 | NUR ---
NURSE NOTES: PATIENT TRANSFERRED FROM TELE, GOT REPORT FROM MY, RN. PATIENT IN BED, AWAKE, ALERT TO NAME. IVS IN PLACE, PATENT. NO S/S DISTRESS OR PAIN NOTED. SACRAL REDNESS NOTED BUT BLANCHABLE. BED IN LOWEST POSITION, CALL LIGHT WITHIN REACH, BED ALARM ON. WILL CONTINUE TO MONITOR.
[2018-09-10 00:29] VITALS: BP 141/70
[2018-09-10] MEDS ORDERED: Albuterol/Ipratropium 3ml neb HHN PRN (02:45)
[2018-09-10 04:31] VITALS: BP 137/78
[2018-09-10] MEDS: HydrALAZINE 25mg tab ORAL SCH ×3 (05:40→21:25)
[2018-09-10] MEDS: Piperacillin/Tazobactam 3.375 GM in D5W 110 ML IVPB SCH ×3 (05:40→21:55)
--- NOTE | 2018-09-10 06:00 | NUR ---
NURSE NOTES: PATIENT AWAKE, NEEDS REORIENTATION, NO DISTRESS.
[2018-09-10 06:43] LABS: PHOSPHORUS 4.4 MG/DL (2.5-4.9)
[2018-09-10 06:50] LABS: BASOPHILS % (AUTO) 1.1 % (0.0-2.0); HEMATOCRIT 32.9 % (37.0-47.0); HEMOGLOBIN 11.3 G/DL (12.0-16.0); LYMPHOCYTES % (AUTO) 8.2 % (20.0-45.0); MEAN CORPUSCULAR VOLUME 94 FL (80-99); MONOCYTES % (AUTO) 9.8 % (1.0-10.0); NEUTROPHILS % (AUTO) 77.8 % (45.0-75.0); PLATELET COUNT 708 K/UL (150-450); RED BLOOD COUNT 3.51 M/UL (4.20-5.40); RED CELL DISTRIBUTION WIDTH 11.3 % (11.6-14.8); WHITE BLOOD COUNT 9.3 K/UL (4.8-10.8)
[2018-09-10 06:51] LABS: ALANINE AMINOTRANSFERASE 94 U/L (12-78); ALBUMIN 2.2 G/DL (3.4-5.0); ALBUMIN/GLOBULIN RATIO 0.6 (1.0-2.7); ALKALINE PHOSPHATASE 109 U/L (46-116); ANION GAP 11 mmol/L (5-15); ASPARTATE AMINO TRANSFERASE 63 U/L (15-37); BILIRUBIN,TOTAL 0.6 MG/DL (0.2-1.0); BLOOD UREA NITROGEN 11 mg/dL (7-18); CALCIUM 8.4 MG/DL (8.5-10.1); CARBON DIOXIDE 22 MMOL/L (21-32); CHLORIDE 103 MMOL/L (98-107); CREATININE 0.9 MG/DL (0.55-1.30); POTASSIUM 4.3 MMOL/L (3.5-5.1); SODIUM 136 MMOL/L (136-145)
--- NOTE | 2018-09-10 07:19 | NUR ---
HAND-OFF: Report given to MAYRA ANGELES RN.
--- NOTE | 2018-09-10 07:20 | NUR ---
NURSE NOTES: Received patient on bed, asleep. IV site intact and patent. Bed in low and locked position. Patient denies shortness of breath and pain. Room board updated, will continue to monitor.
[2018-09-10 08:00] VITALS: BP 130/67
[2018-09-10] MEDS ORDERED: Promethazine/Codeine 5ml UD ORAL PRN (09:00)
--- NOTE | 2018-09-10 09:42 | NUR ---
RADIOLOGY DEPT CHEST X-RAY DONE.-P.DYE
[2018-09-10] MEDS: Losartan 50mg tab ORAL SCH ×2 (09:43→17:31)
[2018-09-10] MEDS: Metoprolol 25mg tab ORAL SCH ×2 (09:45→21:24)
[2018-09-10] MEDS: Docusate 100mg cap ORAL SCH ×3 (09:46→17:30)
[2018-09-10] MEDS: Heparin 5000 units/ml inj SUBQ SCH ×2 (09:47→21:27)
--- NOTE | 2018-09-10 10:29 | Diagnostic Imaging Report ---
Indication: Cough Technique: One view of the chest Comparison: 09/09/2017 Findings: Bands of atelectasis are seen in the right perihilar region and left lung base. There is increase in interstitial and airspace disease in the right upper and lower lung, and questionably at the left lung base. The heart is upper limits normal in size. Aorta is tortuous and calcified. Impression: Developing right upper and lower lung interstitial and airspace opacities, questionable left basilar opacities, may indicate inflammation or edema Increasing right perihilar and left basilar atelectatic changes.
[2018-09-10 12:00] VITALS: BP 130/69
--- NOTE | 2018-09-10 14:47 | General Progress Note ---
Assessment/Plan Problem List: (1) Aspiration pneumonia ICD Codes: J69.0 - Pneumonitis due to inhalation of food and vomit SNOMED: 754485951 (2) HTN (hypertension) ICD Codes: I10 - Essential (primary) hypertension SNOMED: 35902391 (3) Pubic bone fracture ICD Codes: S32.509A - Unspecified fracture of unspecified pubis, initial encounter for closed fracture SNOMED: 63593894 (4) UTI (urinary tract infection) ICD Codes: N39.0 - Urinary tract infection, site not specified SNOMED: 32460551 (5) Protein-calorie malnutrition, severe ICD Codes: E43 - Unspecified severe protein-calorie malnutrition SNOMED: 636071843, 710075569, 836772684 (6) Urinary tract infection ICD Codes: N39.0 - Urinary tract infection, site not specified SNOMED: 46887883 (7) Hyponatremia ICD Codes: E87.1 - Hypo-osmolality and hyponatremia SNOMED: 23756304 Status: stable Assessment/Plan Pt eval increase lopressor and Hydralazine K supplement watch lytes stop lipitor as LFTs rising Zosyn Vanco per ID Pulm Toilet aim to correct Na DC planning home with home health in am on PO Augmentin Subjective ROS Limited/Unobtainable: No Constitutional: Reports: malaise, weakness Allergies: Coded Allergies: LATEX (Verified Allergy, Unknown, 02/11/09) MELOXICAM (Verified Allergy, Unknown, 02/11/09) PREDNISONE (Verified Allergy, Unknown, 02/11/09) Objective Last 24 Hour Vital Signs Date Time Temp Pulse Resp B/P (MAP) Pulse Ox O2 Delivery O2 Flow Rate FiO2 09/10/18 14:04 130/69 09/10/18 12:00 99.0 69 20 130/69 (89) 94 09/10/18 10:34 91 18 97 Room Air 21 09/10/18 10:31 90 17 96 Room Air 21 09/10/18 09:45 93 130/67 09/10/18 09:43 130/67 09/10/18 09:00 Room Air 09/10/18 08:00 96.5 93 24 130/67 (88) 92 09/10/18 07:50 91 18 97 Room Air 21 09/10/18 07:46 91 17 97 Room Air 21 09/10/18 05:40 137/78 09/10/18 04:31 98.1 86 18 137/78 (97) 94 09/10/18 04:08 Room Air 21 09/10/18 04:08 Room Air 21 09/10/18 00:29 98.1 79 18 141/70 (93) 94 09/09/18 23:52 88 18 Room Air 21 09/09/18 23:52 88 18 96 Room Air 21 09/09/18 23:52 88 18 96 Room Air 21 09/09/18 21:43 133/66 09/09/18 21:42 92 133/66 09/09/18 21:00 Room Air 09/09/18 20:00 97.7 92 17 133/66 (88) 96 09/09/18 19:00 Room Air 21 09/09/18 19:00 Room Air 21 09/09/18 18:04 130/57 09/09/18 16:00 97.3 83 18 130/57 (81) 09/09/18 15:50 85 09/09/18 15:18 83 16 99 Room Air 21 09/09/18 15:15 81 16 99 Room Air 21 Intake and Output 09/09/18 09/10/18 18:59 06:59 Intake Total 550 ml 27.5 ml Balance 550 ml 27.5 ml Intake Oral 550 ml IV Total 27.5 ml # Voids 3 Laboratory Tests 09/10/18 05:00: White Blood Count 9.3, Red Blood Count 3.51L, Hemoglobin 11.3L, Hematocrit 32.9L , Mean Corpuscular Volume 94, Mean Corpuscular Hemoglobin 32.1H, Mean Corpuscular Hemoglobin Concent 34.2, Red Cell Distribution Width 11.3L, Platelet Count 708H, Mean Platelet Volume 4.9L, Neutrophils (%) (Auto) 77.8H, Lymphocytes (%) (Auto) 8.2L, Monocytes (%) (Auto) 9.8, Eosinophils (%) (Auto) 3.0, Basophils (%) (Auto) 1.1, Sodium Level 136, Potassium Level 4.3, Chloride Level 103, Carbon Dioxide Level 22, Anion Gap 11, Blood Urea Nitrogen 11, Creatinine 0.9, Estimat Glomerular Filtration Rate , Glucose Level 92, Calcium Level 8.4L, Phosphorus Level 4.4, Magnesium Level 2.3, Total Bilirubin 0.6, Aspartate Amino Transf (AST/SGOT) 63H, Alanine Aminotransferase (ALT/SGPT) 94H, Alkaline Phosphatase 109, C-Reactive Protein, Quantitative 6.7H, Pro-B-Type Natriuretic Peptide 824H, Total Protein 5.7L, Albumin 2.2L, Globulin 3.5, Albumin/Globulin Ratio 0.6L Height (Feet): 5 Height (Inches): 4.00 Weight (Pounds): 110 General Appearance: no apparent distress Cardiovascular: normal rate Respiratory/Chest: decreased breath sounds Abdomen: soft Max Randolph MD Sep 10, 2018 14:47
[2018-09-10 16:00] VITALS: BP 148/90
--- NOTE | 2018-09-10 17:36 | Infectious Diseases Prog Note ---
Assessment/Plan Problems: (1) Aspiration pneumonia Assessment & Plan: with right side infrahilar infiltrates , complicated with pleural effusion , continue zosyn empiric coverage pending sputum culture if she produces any , aspiration precaution and keep HOB > 30 degree. may switch to oral Augmentin to finish her course of treatment once ready for discharge for 7 more days (2) UTI (urinary tract infection) Assessment & Plan: with yeast most likely contaminant , culture grew small colony (3) Sepsis Assessment & Plan: due to the above , with negative blood culture x2 , on zosyn empirically to cover pneumonia (4) FTT (failure to thrive) in adult Assessment & Plan: screening for syphilis and HIV is negative (5) Fever Assessment & Plan: suspect due to the above, resolved continue wide spectrum antibiotics and tylenol as needed (6) Folliculitis and perifolliculitis Assessment & Plan: already on antibiotics, improving, encourage skin cleaning and ventilation and shower as needed Subjective Constitutional: Reports: no symptoms HEENT: Reports: no symptoms Respiratory: Reports: dry cough Breasts: Reports: no symptoms Cardiovascular: Reports: no symptoms Gastrointestinal/Abdominal: Reports: no symptoms Genitourinary: Reports: no symptoms Neurologic: Reports: no symptoms Psychiatric: Reports: no symptoms Skin: Reports: no symptoms Endocrine: Reports: no symptoms Hematologic: Reports: no symptoms Musculoskeletal: Reports: no symptoms Allergies: Coded Allergies: LATEX (Verified Allergy, Unknown, 02/11/09) MELOXICAM (Verified Allergy, Unknown, 02/11/09) PREDNISONE (Verified Allergy, Unknown, 02/11/09) Subjective she awake and comfortable, up in bed, denied any fever or chills, has foliculitis on her back which is improving , no skin rash , afebrile Objective Vital Signs Last 24 Hour Vital Signs Date Time Temp Pulse Resp B/P (MAP) Pulse Ox O2 Delivery O2 Flow Rate FiO2 09/10/18 17:31 148/90 09/10/18 16:00 97.9 83 20 148/90 (109) 95 09/10/18 15:42 73 16 96 Room Air 21 09/10/18 15:39 72 16 95 Room Air 21 09/10/18 14:04 130/69 09/10/18 12:00 99.0 69 20 130/69 (89) 94 09/10/18 10:34 91 18 97 Room Air 21 09/10/18 10:31 90 17 96 Room Air 21 09/10/18 09:45 93 130/67 09/10/18 09:43 130/67 09/10/18 09:00 Room Air 09/10/18 08:00 96.5 93 24 130/67 (88) 92 09/10/18 07:50 91 18 97 Room Air 21 09/10/18 07:46 91 17 97 Room Air 21 09/10/18 05:40 137/78 09/10/18 04:31 98.1 86 18 137/78 (97) 94 09/10/18 04:08 Room Air 21 09/10/18 04:08 Room Air 21 09/10/18 00:29 98.1 79 18 141/70 (93) 94 09/09/18 23:52 88 18 Room Air 21 09/09/18 23:52 88 18 96 Room Air 21 09/09/18 23:52 88 18 96 Room Air 21 09/09/18 21:43 133/66 09/09/18 21:42 92 133/66 09/09/18 21:00 Room Air 09/09/18 20:00 97.7 92 17 133/66 (88) 96 09/09/18 19:00 Room Air 21 09/09/18 19:00 Room Air 21 09/09/18 18:04 130/57 Height (Feet): 5 Height (Inches): 4.00 Weight (Pounds): 110 General Appearance: WD/WN, no acute distress HEENT: normocephalic, atraumatic, anicteric, mucous membranes moist, PERRL Respiratory/Chest: chest wall non-tender, normal breath sounds, no respiratory distress, no accessory muscle use, decreased breath sounds, crackles/rales Cardiovascular: normal peripheral pulses, normal rate, regular rhythm, no gallop/murmur, no JVD Abdomen: normal bowel sounds, soft, non tender, no organomegaly, non distended , no mass, no scars Extremities: no cyanosis, no clubbing Skin: no rash, no lesions, no ulcers Neurologic/Psychiatric: alert, responsive Lymphatic: no neck adenopathy, no groin adenopathy Musculoskeletal: normal muscle bulk, no effusion Laboratory Tests Test 09/10/18 05:00 White Blood Count 9.3 K/UL (4.8-10.8) Red Blood Count 3.51 M/UL (4.20-5.40) L Hemoglobin 11.3 G/DL (12.0-16.0) L Hematocrit 32.9 % (37.0-47.0) L Mean Corpuscular Volume 94 FL (80-99) Mean Corpuscular Hemoglobin 32.1 PG (27.0-31.0) H Mean Corpuscular Hemoglobin Concent 34.2 G/DL (32.0-36.0) Red Cell Distribution Width 11.3 % (11.6-14.8) L Platelet Count 708 K/UL (150-450) H Mean Platelet Volume 4.9 FL (6.5-10.1) L Neutrophils (%) (Auto) 77.8 % (45.0-75.0) H Lymphocytes (%) (Auto) 8.2 % (20.0-45.0) L Monocytes (%) (Auto) 9.8 % (1.0-10.0) Eosinophils (%) (Auto) 3.0 % (0.0-3.0) Basophils (%) (Auto) 1.1 % (0.0-2.0) Sodium Level 136 MMOL/L (136-145) Potassium Level 4.3 MMOL/L (3.5-5.1) Chloride Level 103 MMOL/L (98-107) Carbon Dioxide Level 22 MMOL/L (21-32) Anion Gap 11 mmol/L (5-15) Blood Urea Nitrogen 11 mg/dL (7-18) Creatinine 0.9 MG/DL (0.55-1.30) Estimat Glomerular Filtration Rate mL/min (>60) Glucose Level 92 MG/DL (74-106) Calcium Level 8.4 MG/DL (8.5-10.1) L Phosphorus Level 4.4 MG/DL (2.5-4.9) Magnesium Level 2.3 MG/DL (1.8-2.4) Total Bilirubin 0.6 MG/DL (0.2-1.0) Aspartate Amino Transf (AST/SGOT) 63 U/L (15-37) H Alanine Aminotransferase (ALT/SGPT) 94 U/L (12-78) H Alkaline Phosphatase 109 U/L (46-116) C-Reactive Protein, Quantitative 6.7 mg/dL (0.00-0.90) H Pro-B-Type Natriuretic Peptide 824 pg/mL (0-125) H Total Protein 5.7 G/DL (6.4-8.2) L Albumin 2.2 G/DL (3.4-5.0) L Globulin 3.5 g/dL Albumin/Globulin Ratio 0.6 (1.0-2.7) L Current Medications Medications (Trade) Dose Ordered Sig/Cassy Route PRN Reason Start Time Stop Time Status Last Admin Dose Admin Acetaminophen (Tylenol) 650 mg Q6H PRN ORAL PAIN/TEMP > 101 09/09/18 23:45 10/05/18 23:44 Albuterol/ Ipratropium (Albuterol/ Ipratropium) 3 ml Q4H PRN HHN sob 09/10/18 02:45 09/12/18 10:44 Clonidine HCl (Catapres Tab) 0.1 mg Q4H PRN ORAL bp over 160 syst 09/10/18 03:00 10/06/18 10:59 Docusate Sodium (Colace) 100 mg TID ORAL 09/10/18 09:00 10/06/18 08:59 09/10/18 17:30 Furosemide (Lasix) 10 mg EVERY 8 HOURS IV 09/10/18 22:00 09/11/18 14:01 Heparin Sodium (Porcine) (Heparin 5000 units/ml) 5,000 units EVERY 12 HOURS SUBQ 09/10/18 09:00 10/06/18 08:59 09/10/18 09:47 Hydralazine HCl (Apresoline) 75 mg Q8HR ORAL 09/10/18 06:00 10/06/18 17:59 09/10/18 14:04 Losartan Potassium (Cozaar) 50 mg BID ORAL 09/10/18 09:00 10/06/18 08:59 09/10/18 17:31 Metoprolol Tartrate (Lopressor) 75 mg Q12HR ORAL 09/10/18 09:00 10/06/18 08:59 09/10/18 09:45 Pantoprazole (Protonix) 40 mg Q12HR ORAL 09/10/18 09:00 10/06/18 08:59 09/10/18 09:45 Piperacillin Sod/ Tazobactam Sod 3.375 gm/Dextrose 110 ml @ 27.5 mls/hr EVERY 8 HOURS IVPB 09/10/18 22:00 09/12/18 06:00 Potassium Chloride (K-Dur) 40 meq TWICE A DAY ORAL 09/10/18 09:00 10/07/18 13:14 09/10/18 17:31 Promethazine HCl/ Codeine (Phenergan with Codeine) 10 ml TID PRN ORAL For Cough 09/10/18 09:00 10/06/18 23:44 Carlie Parikh M.D. Sep 10, 2018 17:36
--- NOTE | 2018-09-10 18:45 | Pulmonology Progress Note ---
Assessment/Plan Problems: (1) Pneumonia (2) UTI (urinary tract infection) (3) Alzheimer's dementia (4) Protein-calorie malnutrition, severe (5) Pubic bone fracture (6) FTT (failure to thrive) in adult Assessment/Plan improving continue abx check sputum on diuretics f/u bun/creatinine pt ot dc planning Subjective ROS Limited/Unobtainable: No Constitutional: Reports: no symptoms HEENT: Repors: no symptoms Allergies: Coded Allergies: LATEX (Verified Allergy, Unknown, 02/11/09) MELOXICAM (Verified Allergy, Unknown, 02/11/09) PREDNISONE (Verified Allergy, Unknown, 02/11/09) Objective Last 24 Hour Vital Signs Date Time Temp Pulse Resp B/P (MAP) Pulse Ox O2 Delivery O2 Flow Rate FiO2 09/10/18 17:31 148/90 09/10/18 16:00 97.9 83 20 148/90 (109) 95 09/10/18 15:42 73 16 96 Room Air 21 09/10/18 15:39 72 16 95 Room Air 21 09/10/18 14:04 130/69 09/10/18 12:00 99.0 69 20 130/69 (89) 94 09/10/18 10:34 91 18 97 Room Air 21 09/10/18 10:31 90 17 96 Room Air 21 09/10/18 09:45 93 130/67 09/10/18 09:43 130/67 09/10/18 09:00 Room Air 09/10/18 08:00 96.5 93 24 130/67 (88) 92 09/10/18 07:50 91 18 97 Room Air 21 09/10/18 07:46 91 17 97 Room Air 21 09/10/18 05:40 137/78 09/10/18 04:31 98.1 86 18 137/78 (97) 94 09/10/18 04:08 Room Air 21 09/10/18 04:08 Room Air 21 09/10/18 00:29 98.1 79 18 141/70 (93) 94 09/09/18 23:52 88 18 Room Air 21 09/09/18 23:52 88 18 96 Room Air 21 09/09/18 23:52 88 18 96 Room Air 21 09/09/18 21:43 133/66 3/11/19 21:42 92 133/66 09/09/18 21:00 Room Air 09/09/18 20:00 97.7 92 17 133/66 (88) 96 09/09/18 19:00 Room Air 21 09/09/18 19:00 Room Air 21 Intake and Output 09/09/18 09/10/18 19:00 07:00 Intake Total 550 ml 27.5 ml Balance 550 ml 27.5 ml Intake Oral 550 ml IV Total 27.5 ml # Voids 3 General Appearance: WD/WN HEENT: normocephalic Respiratory/Chest: chest wall non-tender, normal breath sounds Cardiovascular: normal peripheral pulses, normal rate Abdomen: normal bowel sounds, soft, non tender Genitourinary: normal external genitalia Skin: no rash Laboratory Tests 09/10/18 05:00: White Blood Count 9.3, Red Blood Count 3.51L, Hemoglobin 11.3L, Hematocrit 32.9L , Mean Corpuscular Volume 94, Mean Corpuscular Hemoglobin 32.1H, Mean Corpuscular Hemoglobin Concent 34.2, Red Cell Distribution Width 11.3L, Platelet Count 708H, Mean Platelet Volume 4.9L, Neutrophils (%) (Auto) 77.8H, Lymphocytes (%) (Auto) 8.2L, Monocytes (%) (Auto) 9.8, Eosinophils (%) (Auto) 3.0, Basophils (%) (Auto) 1.1, Sodium Level 136, Potassium Level 4.3, Chloride Level 103, Carbon Dioxide Level 22, Anion Gap 11, Blood Urea Nitrogen 11, Creatinine 0.9, Estimat Glomerular Filtration Rate , Glucose Level 92, Calcium Level 8.4L, Phosphorus Level 4.4, Magnesium Level 2.3, Total Bilirubin 0.6, Aspartate Amino Transf (AST/SGOT) 63H, Alanine Aminotransferase (ALT/SGPT) 94H, Alkaline Phosphatase 109, C-Reactive Protein, Quantitative 6.7H, Pro-B-Type Natriuretic Peptide 824H, Total Protein 5.7L, Albumin 2.2L, Globulin 3.5, Albumin/Globulin Ratio 0.6L Current Medications Medications (Trade) Dose Ordered Sig/Cassy Route PRN Reason Start Time Stop Time Status Last Admin Dose Admin Acetaminophen (Tylenol) 650 mg Q6H PRN ORAL PAIN/TEMP > 101 09/09/18 23:45 10/05/18 23:44 Albuterol/ Ipratropium (Albuterol/ Ipratropium) 3 ml Q4H PRN HHN sob 09/10/18 02:45 09/12/18 10:44 Clonidine HCl (Catapres Tab) 0.1 mg Q4H PRN ORAL bp over 160 syst 09/10/18 03:00 10/06/18 10:59 Docusate Sodium (Colace) 100 mg TID ORAL 09/10/18 09:00 10/06/18 08:59 09/10/18 17:30 Furosemide (Lasix) 10 mg EVERY 8 HOURS IV 09/10/18 22:00 09/11/18 14:01 Heparin Sodium (Porcine) (Heparin 5000 units/ml) 5,000 units EVERY 12 HOURS SUBQ 09/10/18 09:00 10/06/18 08:59 09/10/18 09:47 Hydralazine HCl (Apresoline) 75 mg Q8HR ORAL 09/10/18 06:00 10/06/18 17:59 09/10/18 14:04 Losartan Potassium (Cozaar) 50 mg BID ORAL 09/10/18 09:00 10/06/18 08:59 09/10/18 17:31 Metoprolol Tartrate (Lopressor) 75 mg Q12HR ORAL 09/10/18 09:00 10/06/18 08:59 09/10/18 09:45 Pantoprazole (Protonix) 40 mg Q12HR ORAL 09/10/18 09:00 10/06/18 08:59 09/10/18 09:45 Piperacillin Sod/ Tazobactam Sod 3.375 gm/Dextrose 110 ml @ 27.5 mls/hr EVERY 8 HOURS IVPB 09/10/18 22:00 09/12/18 06:00 Potassium Chloride (K-Dur) 40 meq TWICE A DAY ORAL 09/10/18 09:00 10/07/18 13:14 09/10/18 17:31 Promethazine HCl/ Codeine (Phenergan with Codeine) 10 ml TID PRN ORAL For Cough 09/10/18 09:00 10/06/18 23:44 Marcy Tierney MD Sep 10, 2018 18:45
--- NOTE | 2018-09-10 19:30 | NUR ---
NURSE NOTES: Received patient awake in bed, no s/s of acute distress, no c/o pain at this time. IV site asymptomatic, dressing dry and intact. Room board updated. Bed on lowest position, 2 side rails up, bedside commode at the bedside, call light and belongings within reach.
--- NOTE | 2018-09-10 19:32 | NUR ---
HAND-OFF: Report given to ALEXANDER Mace.
[2018-09-10 20:00] VITALS: BP 87/90
[2018-09-11 00:06] VITALS: BP 136/74
[2018-09-11 04:00] VITALS: BP 144/70
[2018-09-11] MEDS: HydrALAZINE 25mg tab ORAL SCH ×2 (05:37→15:27)
[2018-09-11] MEDS: Piperacillin/Tazobactam 3.375 GM in D5W 110 ML IVPB SCH (06:12)
--- NOTE | 2018-09-11 07:12 | NUR ---
HAND-OFF: Report given to ALEXANDER Sutton. Patient awake eating breakfast.
--- NOTE | 2018-09-11 07:20 | NUR ---
NURSE NOTES: Received patient on bed, awake, alert and oriented x1.No s/s of pain or discomfort per FLACC pain scale. IV site intact and patent. Bed in low and locked position. Bed alarm is on and reminded patient to call nurses if need.Patient denies shortness of breath and pain. Room board updated, will continue to monitor.
[2018-09-11 08:00] VITALS: BP 116/60
[2018-09-11] MEDS: Docusate 100mg cap ORAL SCH ×3 (09:00→13:00)
[2018-09-11] MEDS: Heparin 5000 units/ml inj SUBQ SCH (09:11)
[2018-09-11] MEDS: Losartan 50mg tab ORAL SCH (09:12)
[2018-09-11] MEDS: Metoprolol 25mg tab ORAL SCH (09:12)
--- NOTE | 2018-09-11 11:24 | NUR ---
Social Service Note MARIPOSA spoke with patient's nephew Clif Rangel [phone] and confirmed patient will be returning home. Clif is going to be patient's caregiver. Patient will be returning to [address] [place] [address] Dr. MORENO [id number], . Home Health referral faxed to [facility] [phone] (p) [phone] (f). Nephew states family will transport patient home via private ambulance. MARIPOSA discussed advance directives. Copy will be provided to nephew once he arrives to hospital. Addendum: 09/11/18 at 1200 by LEONELA MERCADO MARIPOSA spoke with Maryana at [facility] and confirmed receipt of referral. Nurse will visit patient tomorrow at home and complete assessment.
--- NOTE | 2018-09-11 11:49 | General Progress Note ---
Assessment/Plan Problem List: (1) Aspiration pneumonia ICD Codes: J69.0 - Pneumonitis due to inhalation of food and vomit SNOMED: 659845797 (2) HTN (hypertension) ICD Codes: I10 - Essential (primary) hypertension SNOMED: 22868148 (3) Pubic bone fracture ICD Codes: S32.509A - Unspecified fracture of unspecified pubis, initial encounter for closed fracture SNOMED: 00754944 (4) UTI (urinary tract infection) ICD Codes: N39.0 - Urinary tract infection, site not specified SNOMED: 61701602 (5) Protein-calorie malnutrition, severe ICD Codes: E43 - Unspecified severe protein-calorie malnutrition SNOMED: 901804048, 730358350, 219521033 (6) Urinary tract infection ICD Codes: N39.0 - Urinary tract infection, site not specified SNOMED: 43698393 (7) Hyponatremia ICD Codes: E87.1 - Hypo-osmolality and hyponatremia SNOMED: 19411152 Status: stable Assessment/Plan Pt eval increase lopressor and Hydralazine K supplement watch lytes stop lipitor as LFTs rising Zosyn Vanco per ID Pulm Toilet aim to correct Na DC planning home with home health today on PO Augmentin Subjective ROS Limited/Unobtainable: No Constitutional: Reports: weakness Allergies: Coded Allergies: LATEX (Verified Allergy, Unknown, 02/11/09) MELOXICAM (Verified Allergy, Unknown, 02/11/09) PREDNISONE (Verified Allergy, Unknown, 02/11/09) Objective Last 24 Hour Vital Signs Date Time Temp Pulse Resp B/P (MAP) Pulse Ox O2 Delivery O2 Flow Rate FiO2 09/11/18 09:12 89 116/60 09/11/18 09:12 116/60 09/11/18 09:00 Room Air 09/11/18 08:00 98.1 89 19 116/60 (78) 94 09/11/18 07:53 88 18 96 Room Air 21 09/11/18 07:50 89 16 94 Room Air 21 09/11/18 05:37 144/70 09/11/18 04:00 99.0 80 19 144/70 (94) 94 09/11/18 03:15 Room Air 21 09/11/18 03:15 Room Air 21 09/11/18 00:06 99.5 79 18 136/74 (94) 95 09/10/18 23:24 85 18 96 Room Air 21 09/10/18 23:24 82 18 96 Room Air 21 09/10/18 21:25 87/90 09/10/18 21:24 91 87/90 09/10/18 21:00 Room Air 09/10/18 20:16 91 18 97 Room Air 21 09/10/18 20:14 88 18 96 Room Air 21 09/10/18 20:00 98.9 94 19 87/90 (89) 98 09/10/18 17:31 148/90 09/10/18 16:00 97.9 83 20 148/90 (109) 95 09/10/18 15:42 73 16 96 Room Air 21 09/10/18 15:39 72 16 95 Room Air 21 09/10/18 14:04 130/69 09/10/18 12:00 99.0 69 20 130/69 (89) 94 Intake and Output 09/10/18 09/11/18 19:00 07:00 Intake Total 872.5 ml 240 ml Balance 872.5 ml 240 ml Intake Oral 680 ml 240 ml IV Total 192.5 ml # Voids 5 2 # Bowel Movements 4 Current Medications Medications (Trade) Dose Ordered Sig/Cassy Route PRN Reason Start Time Stop Time Status Last Admin Dose Admin Acetaminophen (Tylenol) 650 mg Q6H PRN ORAL PAIN/TEMP > 101 09/09/18 23:45 10/05/18 23:44 Albuterol/ Ipratropium (Albuterol/ Ipratropium) 3 ml Q4H PRN HHN sob 09/10/18 02:45 09/12/18 10:44 Amoxicillin/ Clavulanate Potassium (Augmentin) 875 mg EVERY 12 HOURS ORAL 09/11/18 21:00 09/18/18 20:59 Clonidine HCl (Catapres Tab) 0.1 mg Q4H PRN ORAL bp over 160 syst 09/10/18 03:00 10/06/18 10:59 Docusate Sodium (Colace) 100 mg TID ORAL 09/10/18 09:00 10/06/18 08:59 09/10/18 17:30 Heparin Sodium (Porcine) (Heparin 5000 units/ml) 5,000 units EVERY 12 HOURS SUBQ 09/10/18 09:00 10/06/18 08:59 09/11/18 09:11 Hydralazine HCl (Apresoline) 75 mg Q8HR ORAL 09/10/18 06:00 10/06/18 17:59 09/11/18 05:37 Losartan Potassium (Cozaar) 50 mg BID ORAL 09/10/18 09:00 10/06/18 08:59 09/11/18 09:12 Metoprolol Tartrate (Lopressor) 75 mg Q12HR ORAL 09/10/18 09:00 10/06/18 08:59 09/11/18 09:12 Pantoprazole (Protonix) 40 mg Q12HR ORAL 09/10/18 09:00 10/06/18 08:59 09/11/18 09:11 Promethazine HCl/ Codeine (Phenergan with Codeine) 10 ml TID PRN ORAL For Cough 09/10/18 09:00 10/06/18 23:44 Height (Feet): 5 Height (Inches): 4.00 Weight (Pounds): 103 General Appearance: no apparent distress Cardiovascular: normal rate Respiratory/Chest: decreased breath sounds Abdomen: soft Objective no change Max Randolph MD Sep 11, 2018 11:49
[2018-09-11 12:00] VITALS: BP 143/65
[2018-09-11] MEDS ORDERED: COZAAR50 MG ORAL (12:01)
[2018-09-11] MEDS ORDERED: HYDRALAZINE HCL25 M1 ORAL (12:01)
[2018-09-11] MEDS ORDERED: AMOX TR-K CLV1 EAC2 ORAL (12:01)
[2018-09-11] MEDS ORDERED: LOPRESSOR25 M1 ORAL (12:01)
--- NOTE | 2018-09-11 12:03 | Discharge Instructions ---
Discharge Instructions Discharge Instructions Follow up with: William haywood Diet: cardiac 2 GM Na, low fat Activity: other - per PT Follow Up Orders FU with Dr haywood Special Instructions work with For Congestive Heart Failure Reminder Report to your physician any weight gain of 5 pounds or more in one week. Max Randolph MD Sep 11, 2018 12:03
--- NOTE | 2018-09-11 13:23 | Pulmonology Progress Note ---
Assessment/Plan Problems: (1) Pneumonia (2) UTI (urinary tract infection) (3) Alzheimer's dementia (4) Protein-calorie malnutrition, severe (5) Pubic bone fracture (6) FTT (failure to thrive) in adult Assessment/Plan improving continue abx check sputum on diuretics f/u bun/creatinine pt ot dc planning Subjective ROS Limited/Unobtainable: No Constitutional: Reports: no symptoms HEENT: Repors: no symptoms Respiratory: Reports: no symptoms Allergies: Coded Allergies: LATEX (Verified Allergy, Unknown, 02/11/09) MELOXICAM (Verified Allergy, Unknown, 02/11/09) PREDNISONE (Verified Allergy, Unknown, 02/11/09) Objective Last 24 Hour Vital Signs Date Time Temp Pulse Resp B/P (MAP) Pulse Ox O2 Delivery O2 Flow Rate FiO2 09/11/18 11:01 90 18 96 Room Air 21 09/11/18 10:58 91 18 95 Room Air 21 09/11/18 09:12 89 116/60 09/11/18 09:12 116/60 09/11/18 09:00 Room Air 09/11/18 08:00 98.1 89 19 116/60 (78) 94 09/11/18 07:53 88 18 96 Room Air 21 09/11/18 07:50 89 16 94 Room Air 09/11/18 05:37 144/70 09/11/18 04:00 99.0 80 19 144/70 (94) 94 09/11/18 03:15 Room Air 21 09/11/18 03:15 Room Air 21 09/11/18 00:06 99.5 79 18 136/74 (94) 95 09/10/18 23:24 85 18 96 Room Air 21 09/10/18 23:24 82 18 96 Room Air 21 09/10/18 21:25 87/90 09/10/18 21:24 91 87/90 09/10/18 21:00 Room Air 09/10/18 20:16 91 18 97 Room Air 21 09/10/18 20:14 88 18 96 Room Air 21 09/10/18 20:00 98.9 94 19 87/90 (89) 98 09/10/18 17:31 148/90 09/10/18 16:00 97.9 83 20 148/90 (109) 95 09/10/18 15:42 73 16 96 Room Air 21 09/10/18 15:39 72 16 95 Room Air 21 09/10/18 14:04 130/69 Intake and Output 09/10/18 09/11/18 18:59 06:59 Intake Total 872.5 ml 240 ml Balance 872.5 ml 240 ml Intake Oral 680 ml 240 ml IV Total 192.5 ml # Voids 5 2 # Bowel Movements 4 General Appearance: cachetic HEENT: normocephalic, atraumatic Respiratory/Chest: chest wall non-tender, lungs clear, normal breath sounds Breasts: no masses Cardiovascular: normal peripheral pulses Abdomen: normal bowel sounds, soft, non tender Genitourinary: normal external genitalia Extremities: no clubbing Skin: no rash Current Medications Medications (Trade) Dose Ordered Sig/Cassy Route PRN Reason Start Time Stop Time Status Last Admin Dose Admin Acetaminophen (Tylenol) 650 mg Q6H PRN ORAL PAIN/TEMP > 101 09/09/18 23:45 10/05/18 23:44 Albuterol/ Ipratropium (Albuterol/ Ipratropium) 3 ml Q4H PRN HHN sob 09/10/18 02:45 09/12/18 10:44 Amoxicillin/ Clavulanate Potassium (Augmentin) 875 mg EVERY 12 HOURS ORAL 09/11/18 21:00 09/18/18 20:59 Clonidine HCl (Catapres Tab) 0.1 mg Q4H PRN ORAL bp over 160 syst 09/10/18 03:00 10/06/18 10:59 Docusate Sodium (Colace) 100 mg TID ORAL 09/10/18 09:00 10/06/18 08:59 09/10/18 17:30 Heparin Sodium (Porcine) (Heparin 5000 units/ml) 5,000 units EVERY 12 HOURS SUBQ 09/10/18 09:00 10/06/18 08:59 09/11/18 09:11 Hydralazine HCl (Apresoline) 75 mg Q8HR ORAL 09/10/18 06:00 10/06/18 17:59 09/11/18 05:37 Losartan Potassium (Cozaar) 50 mg BID ORAL 09/10/18 09:00 10/06/18 08:59 09/11/18 09:12 Metoprolol Tartrate (Lopressor) 75 mg Q12HR ORAL 09/10/18 09:00 10/06/18 08:59 09/11/18 09:12 Pantoprazole (Protonix) 40 mg Q12HR ORAL 09/10/18 09:00 10/06/18 08:59 09/11/18 09:11 Promethazine HCl/ Codeine (Phenergan with Codeine) 10 ml TID PRN ORAL For Cough 09/10/18 09:00 10/06/18 23:44 Marcy Tierney MD Sep 11, 2018 13:23
[2018-09-11 15:27] VITALS: BP 152/65
[2018-09-11] MEDS ORDERED: 1/2 NS 1000ml IV ONE (15:49)
--- NOTE | 2018-09-11 16:00 | NUR ---
NURSE NOTES: Patient discharged to home accompanied by family member, patient's sister and niece in private car in stable condition. Prior to discharge, patient's V/S stable. Denied any pain or discomfort. Not in respiratory distress. Discharge instruction given to the family including fall precaution, aspiration precaution, nectar thick liquid, hypertention,etc and [facility] [employer] phone number given. Intructed to follow up.Prescription given to the patient's niece. She will fill the medication from the pharmacy where patient goes.Instructed to follow up with Hayde Patino. Skin assessment done. Skin intact, no s/s of infection on IV's removal sites. All belongings accounted for. Prior to discharge,patient's family and Clif talked to social services analyst. All belongings accounted for. Staff escorted patient to car.
--- NOTE | 2018-09-11 17:28 | Infectious Diseases Prog Note ---
Assessment/Plan Problems: (1) Aspiration pneumonia Assessment & Plan: with right side infrahilar infiltrates , complicated with pleural effusion , continue zosyn empiric coverage pending sputum culture if she produces any , aspiration precaution and keep HOB > 30 degree. may switch to oral Augmentin to finish her course of treatment once ready for discharge for 7 more days (2) UTI (urinary tract infection) Assessment & Plan: with yeast most likely contaminant , culture grew small colony (3) Sepsis Assessment & Plan: due to the above , with negative blood culture x2 , on zosyn empirically to cover pneumonia (4) FTT (failure to thrive) in adult Assessment & Plan: screening for syphilis and HIV is negative (5) Fever Assessment & Plan: suspect due to the above, resolved continue wide spectrum antibiotics and tylenol as needed (6) Folliculitis and perifolliculitis Assessment & Plan: already on antibiotics, improving, encourage skin cleaning and ventilation and shower as needed Assessment/Plan time of the note dosen't reflect time patient was seen Subjective Constitutional: Reports: no symptoms HEENT: Reports: no symptoms Respiratory: Reports: no symptoms Breasts: Reports: no symptoms Cardiovascular: Reports: no symptoms Gastrointestinal/Abdominal: Reports: no symptoms Genitourinary: Reports: no symptoms Neurologic: Reports: no symptoms Psychiatric: Reports: no symptoms Skin: Reports: no symptoms Endocrine: Reports: no symptoms Hematologic: Reports: no symptoms Musculoskeletal: Reports: no symptoms Allergies: Coded Allergies: LATEX (Verified Allergy, Unknown, 02/11/09) MELOXICAM (Verified Allergy, Unknown, 02/11/09) PREDNISONE (Verified Allergy, Unknown, 02/11/09) Subjective she awake and comfortable, up in bed, denied any fever or chills, has foliculitis on her back which is improving , no skin rash , afebrile Objective Vital Signs Last 24 Hour Vital Signs Date Time Temp Pulse Resp B/P (MAP) Pulse Ox O2 Delivery O2 Flow Rate FiO2 09/11/18 15:27 152/65 09/11/18 14:34 87 18 97 Room Air 21 09/11/18 14:31 87 17 97 Room Air 21 09/11/18 12:00 98.4 88 19 143/65 (91) 94 09/11/18 11:01 90 18 96 Room Air 21 09/11/18 10:58 91 18 95 Room Air 21 09/11/18 09:12 89 116/60 09/11/18 09:12 116/60 09/11/18 09:00 Room Air 09/11/18 08:00 98.1 89 19 116/60 (78) 94 09/11/18 07:53 88 18 96 Room Air 21 09/11/18 07:50 89 16 94 Room Air 21 09/11/18 05:37 144/70 09/11/18 04:00 99.0 80 19 144/70 (94) 94 09/11/18 03:15 Room Air 21 09/11/18 03:15 Room Air 21 09/11/18 00:06 99.5 79 18 136/74 (94) 95 09/10/18 23:24 85 18 96 Room Air 21 09/10/18 23:24 82 18 96 Room Air 21 09/10/18 21:25 87/90 09/10/18 21:24 91 87/90 09/10/18 21:00 Room Air 09/10/18 20:16 91 18 97 Room Air 21 09/10/18 20:14 88 18 96 Room Air 21 09/10/18 20:00 98.9 94 19 87/90 (89) 98 09/10/18 17:31 148/90 Height (Feet): 5 Height (Inches): 4.00 Weight (Pounds): 103 General Appearance: WD/WN, no acute distress HEENT: normocephalic, atraumatic, anicteric, mucous membranes moist, PERRL Respiratory/Chest: chest wall non-tender, no respiratory distress, no accessory muscle use, decreased breath sounds Cardiovascular: normal peripheral pulses, normal rate, regular rhythm, no gallop/murmur, no JVD Abdomen: normal bowel sounds, soft, non tender, no organomegaly, non distended , no mass, no scars Extremities: no cyanosis, no clubbing Skin: no rash, no lesions, no ulcers Neurologic/Psychiatric: alert, responsive Lymphatic: no neck adenopathy, no groin adenopathy Musculoskeletal: normal muscle bulk, no effusion Carlie Parikh M.D. Sep 11, 2018 17:28
[2018-09-11] MEDS ORDERED: Augmentin 875mg Tab ORAL SCH (21:00)
--- NOTE | 2018-09-12 15:06 | Discharge Summary ---
Discharge Summary Discharge Summary _ DATE OF ADMISSION: 09/05/2018 DATE OF DISCHARGE: 09/11/2018 DISCHARGED BY: Dr. Max Randolph CONSULTANTS: Dr. Carlie Tierney BRIEF HOSPITAL COURSE: Patient is an 82-year-old female, who was sent in from snf after increased fever. Patient was noted to have temperature of 102 degrees. Patient was recently treated with urinary tract infection. On at the ED, vital signs were stable. Blood work showed abnormal function tests and minimally elevated white blood count. She was noted to have some residual urinary infection. She was given Rocephin as well as azithromycin. Chest x-ray showed right infrahilar infiltrate and right-sided pleural effusion. She was then admitted for aspiration pneumonia, UTI and fever. ID and gasoline service attendant were consulted. Patient was started on Zosyn and vancomycin. She was placed on strict aspiration precautions. Was given respiratory treatment. She was given antitussives. She was placed on heparin for DVT prophylaxis. Influenza screen test was negative. Antihypertensives were titrated. Lipitor was discontinued due to elevated LFTs. Syphilis and HIV screen were negative. Renal culture showed kidneys with normal echogenicity. Negative for hydronephrosis. Mildly distended bladder. Blood culture did not isolate any growth. Vancomycin was discontinued. Urine culture showed growth of yeast. Leukocytosis resolved. Patient was afebrile. Patient was cleared for discharge to continue p.o. antibiotics. Patient was eventually discharged home per family request. FINAL DIAGNOSES: Aspiration pneumonia Hypertension Urinary tract infection Severe protein calorie malnutrition Pubic bone fracture Hyponatremia Alzheimer's dementia Folliculitis and perifolliculitis DISPOSITION: Home with home health. DISCHARGE MEDICATIONS: Refer to Discharge Medication List. DISCHARGE INSTRUCTIONS: Follow-up in a week. I have been assigned to complete a discharge summary on this account, I was not involved with the patient's management. Elaine Finn NP Sep 12, 2018 15:06
== END 2018-09-11 15:50 | disposition home health service (06) | DRG 871 ==
LOC: EDBD 17:14 → EMR 17:49 → 2E 18:49 → EDBEDREQ 20:34 → 4E 09-09 22:55
DX: A41.9 Sepsis, unspecified organism (principal); J69.0 Pneumonitis due to inhalation of food and vomit; E43 Unspecified severe protein-calorie malnutrition; Z68.1 Body mass index [BMI] 19.9 or less, adult; N39.0 Urinary tract infection, site not specified; E87.1 Hypo-osmolality and hyponatremia; I10 Essential (primary) hypertension; Z88.8 Allergy status to other drugs, medicaments and biological substances; Z91.040 Latex allergy status; S32.509D Unspecified fracture of unspecified pubis, subsequent encounter for fracture with routine healing; G30.9 Alzheimer's disease, unspecified; F02.80 Dementia in other diseases classified elsewhere, unspecified severity, without behavioral disturbance, psychotic disturbance, mood disturbance, and anxiety; L73.9 Follicular disorder, unspecified; L01.02 Bockhart's impetigo
CPT/HCPCS: 36415; 71045; 76770; 80048; 80053; 80202; 81001; 81003; 82533; 82550; 82553; 83605; 83735; 83880; 83930; 83935; 84100; 84300; 84439; 84443; 84481; 84484; 84550; 85007; 85025; 86140; 86592; 86703; 86710; 87040; 87081; 87086; 93005; 94664; 96365; 96367; 96375; 97802; 99285; J8499